=== PATIENT | male | born 1955 | race Caucasian/White ===

== ENCOUNTER 2025-03-12 09:43 | Inpatient (IN) | payer MEDICARE, OTHER, SELFPAY ==
[2025-03-06] VITALS (11 sets, daily range): BP systolic 135–158; BP diastolic 55–73
--- NOTE | 2025-03-06 09:49 | ED.GENMED ---
History of Present Illness
<Deidre Valdivia DO - Last Filed: 03/08/25 06:17>
General
Chief Complaint: Weakness
Time Seen by Provider: 03/06/25 09:45
History of Present Illness
History of Present Illness:
69-year-old male with history of COPD presenting to the emergency department for concern of failure to thrive. Patient is being watched by the [facility]. Patient's several months ago and has been on a decline. They went to
see him today, patient was found laying on the ground next to his bed. Per medics, patient has been having frequent falls, recently evaluated a week ago for a fall. Patient somewhat limited historian. Presently denies chest pain or difficulty
breathing. Denies abdominal pain. Does note some right shoulder pain and right hip pain. When medics arrived, note the patient did have air conditioning, however the air conditioning was off. Patient arrives disheveled, unkept, cachectic. No
additional history or symptoms reported at this time
Past History
<Deidre Valdivia DO - Last Filed: 03/08/25 06:17>
Past History
ED Past Medical History: CAD, COPD, HTN, Hypercholesterolemia, Other (Monoclonal gammopathy) and Other (History of myocarditis, history of herniated disc in the neck history of kidney stones, history of problems with urination due to prostatic
hypertrophy, history of alcohol abuse, history of bipolar disorder, history of depression, history of substance abuse)
ED Past Surgical History: Orthopedic (The patient had total knee replacement 6 years ago, he had a left hip replaced 6 years ago, and screws and plate in the next 5-6 years ago.) and Other (He apparently also had several cardiac stents placed.)
Patient has exhibited threatening behavior?: Yes
Date of threatening behavior? (updated with each occurrence): 05/31/20
Social History
Tobacco: Smoker
Alcohol: Chronic alcoholic
Drug: Other
Personal:
Living: with family
Employment: Disabled
Family History
Family History: Other (reviewed and noncontributory)
Phy Exam
<Deidre Valdivia DO - Last Filed: 03/08/25 06:17>
Physical Exam
Physical Exam:
General: Unkempt, very dry mucous membranes with dried blood at the mouth, bennett discoloration of skin
HEENT: protecting airway
Neck: appears supple, generalized tenderness to the paraspinal musculature. No midline tenderness
CV: Normal heart rate, regular rhythm
Resp: No accessory muscle use, no increased work of breathing, lungs clear to auscultation bilaterally
Abd: Soft and non-distended, no tenderness to palpation
Extremities: No deformities, no swelling. Limited range of motion to the right shoulder with pain on palpation. Pitting edema to the forearm without significant tenderness. Distal sensation and pulses intact. Generalized tenderness to the right
hip without deformity or swelling
Neuro: alert, no focal neurologic deficit
: deferred
Rectal: deferred
Psych: Normal affect
Skin: Intact
Course
<Deidre Valdivia DO - Last Filed: 03/08/25 06:17>
Orders/Labs/Results
Orders:
Orders
03/06/25 09:45
CT Cervical Spine W/o Iv Contr Urgent
Comment:
Reason For Exam: fall, unwitnessed
CT Head W/o Iv Contrast Urgent
Comment:
Reason For Exam: fall, unwitnessed
0.9% Sodium Chloride 1000 ml [Nss] 1,000 ml IV BOLUS
Shoulder, Right 2 Views [CR Shoulder - Right Min 2 View] Urgent
Comment:
Reason For Exam: unwitnessed fall, pain
03/06/25 09:46
CR Chest - 2 Views Urgent
Comment:
Reason For Exam: failure to thrive
03/06/25 09:51
Hip, Right 2-3 Views [CR Hip - RT w/wo Pel 2-3 Vw*] Urgent
Comment:
Reason For Exam: fall, untinessed, pain
Include a pelvis x-ray?: Yes
03/06/25 09:58
Alcohol Urgent
CPK [Creatine Phosphokinase] Urgent
Complete Blood Count/With Diff Urgent
Comprehensive Metabolic Panel Urgent
Lactic Acid Urgent
PTT Urgent
Prothrombin Time Urgent
03/06/25 11:49
Crisis Consult Urgent
Reason for Consult: inability to care for self
03/06/25 11:53
Case Management Consult ONCE
Case Management Consult: Discharge Planning
03/06/25 16:19
Fentanyl, Urine Urgent
Urinalysis Reflex To Culture Urgent
Date Specimen was Collected: 03/06/25
Time Specimen was Collected: 16:17
Urine Drug Abuse Screen Urgent
Date Specimen was Collected: 03/06/25
Time Specimen was Collected: 16:17
Urine Microscopic Reflex Cult Urgent
Urine Culture Urgent
GEORGE Source: U
Specimen Description:
Date Specimen was Collected: 03/06/25
Time Specimen was Collected: 16:17
03/06/25 17:03
Add On- LAB Urgent
Tests Added?: alcohol level
03/07/25
DH LUMASON 5mL Routine
03/07/25 02:40
Cyclobenzaprine HCl [Flexeril] 10 mg PO NOW STA
Gabapentin [Neurontin] 800 mg PO NOW STA
Quetiapine Fumarate [Seroquel] 300 mg PO NOW STA
03/07/25 02:47
Sertraline HCl [Zoloft] 100 mg PO NOW STA
03/07/25 02:57
Gabapentin [Neurontin] 400 mg .ROUTE .STK-MED ONE
Gabapentin [Neurontin] 400 mg PO NOW STA
03/07/25 11:22
Add On- LAB Urgent
Comments:: urine in lab
Tests Added?: urine drug
03/07/25 11:23
ECG [Electrocardiogram (*1)] Urgent
Reason for Study: QTc Monitoring
Other Reason for Exam: For psychiatric placement
03/07/25 11:24
EKG- Treatment ONCE
03/07/25 11:37
COVID-19 Antigen Urgent
Source: Nasal Swab
Comment: for psychiatric placement
03/07/25 11:59
Hemoglobin Urgent
Troponin I Urgent
03/07/25 13:05
Echo 2D MMode Color/Doppler Urgent
Reason for Study: abnormal ECG, elevated Troponin
Cardiology Consult: Cruz Thompson
03/07/25 14:52
CR Hand - Right Min 3 Views Urgent
Comment:
Reason For Exam: right hand pain
03/07/25 15:25
Urine Drug Abuse Screen Routine
03/07/25 16:57
Troponin I Urgent
Aspirin Chewable [Low Strength Aspirin] 324 mg PO NOW STA
03/07/25 17:00
Metoprolol Xl [Toprol Xl] 25 mg PO DAILY
03/07/25 19:08
Acetaminophen [Tylenol] 650 mg PO NOW STA
Cephalexin Monohydrate [Keflex] 500 mg PO NOW STA
03/07/25 22:00
Cyclobenzaprine HCl [Flexeril] 10 mg PO HS PRN
Gabapentin [Neurontin] 1,200 mg PO HS
Quetiapine Fumarate [Seroquel] 300 mg PO HS
Sertraline HCl [Zoloft] 100 mg PO HS
03/07/25 22:42
Cyclobenzaprine HCl [Flexeril] 10 mg .ROUTE .STK-MED ONE
Gabapentin [Neurontin] 1,200 mg .ROUTE .STK-MED ONE
Quetiapine Fumarate [Seroquel] 300 mg .ROUTE .STK-MED ONE
Sertraline HCl [Zoloft] 100 mg .ROUTE .STK-MED ONE
03/08/25 06:00
Cardiovascular Evaluation IN AM
Troponin I IN AM
03/08/25 08:00
Aspirin Chewable [Low Strength Aspirin] 81 mg PO DAILY
Cephalexin Monohydrate [Keflex] 500 mg PO BID
Abnormal Lab Results
03/06/25 03/06/25 03/07/25
09:58 16:19 11:59
RBC 2.99 L 10^6/uL
(4.70-6.10)
Hgb 10.3 L g/dL 9.6 L g/dL
(13.0-18.0) (13.0-18.0)
Hct 29.9 L %
(39.0-52.0)
MCV 100.0 H fL
(80.0-94.0)
MCH 34.4 H pg
(27.0-31.0)
RDW 16.1 H %
(11.5-14.5)
MPV 10.7 H fL
(7.4-10.4)
Abs Immat Gran (auto) 0.1 H 10^3/uL
(0-0.05)
Absolute Lymphs (auto) 0.4 L 10^3/uL
(1.2-3.4)
Immature Gran % 0.9 H %
(0-0.5)
Neutrophils % 80.2 H %
(42.2-75.2)
Lymphocytes % 7.4 L %
(20.5-51.1)
PT 14.8 H Sec
(11.4-14.6)
Chloride 108 H mmol/L
(98-107)
BUN 31 H mg/dl
(9-20)
Glucose 112 H mg/dl
(70-99)
Creatine Kinase 270 H U/L
(55-170)
Troponin I 0.057 H* ng/ml
Total Protein 5.6 L g/dl
(6.3-8.2)
Albumin 3.2 L g/dl
(3.5-5.0)
Leukocyte Esterase Rfl 1+ A
(Negative)
Urine Albumin (Reflex) 2+ A
(Neg - Trace)
Ur Oxycodone Screen Positive H
(Negative)
Urine Methadone Screen Positive H
(Negative)
Ur Tricyclics Screen Positive H
(Negative)
Urine Cocaine Screen Positive H
(Negative)
03/07/25
16:57
RBC
Hgb
Hct
MCV
MCH
RDW
MPV
Abs Immat Gran (auto)
Absolute Lymphs (auto)
Immature Gran %
Neutrophils %
Lymphocytes %
PT
Chloride
BUN
Glucose
Creatine Kinase
Troponin I 0.049 H* ng/ml
Total Protein
Albumin
Leukocyte Esterase Rfl
Urine Albumin (Reflex)
Ur Oxycodone Screen
Urine Methadone Screen
Ur Tricyclics Screen
Urine Cocaine Screen
03/07/25 11:59
03/06/25 09:58
Vital Signs
Initial and Last Documented VS:
Initial Vital Signs
Temp Pulse Resp
98.7 F 94 18
03/06/25 09:42 03/06/25 09:42 03/06/25 09:42
Last Documented Vital Signs
Temp Pulse Resp BP Pulse Ox
99.5 F 86 21 134/112 100
03/07/25 08:58 03/07/25 17:49 03/07/25 00:25 03/07/25 17:49 03/06/25 17:45
<Kvng Torres, DO - Last Filed: 03/06/25 23:46>
Orders/Labs/Results
Orders:
Orders
03/06/25 09:45
CT Cervical Spine W/o Iv Contr Urgent
Comment:
Reason For Exam: fall, unwitnessed
CT Head W/o Iv Contrast Urgent
Comment:
Reason For Exam: fall, unwitnessed
0.9% Sodium Chloride 1000 ml [Nss] 1,000 ml IV BOLUS
Shoulder, Right 2 Views [CR Shoulder - Right Min 2 View] Urgent
Comment:
Reason For Exam: unwitnessed fall, pain
03/06/25 09:46
CR Chest - 2 Views Urgent
Comment:
Reason For Exam: failure to thrive
03/06/25 09:51
Hip, Right 2-3 Views [CR Hip - RT w/wo Pel 2-3 Vw*] Urgent
Comment:
Reason For Exam: fall, untinessed, pain
Include a pelvis x-ray?: Yes
03/06/25 09:58
Alcohol Urgent
CPK [Creatine Phosphokinase] Urgent
Complete Blood Count/With Diff Urgent
Comprehensive Metabolic Panel Urgent
Lactic Acid Urgent
PTT Urgent
Prothrombin Time Urgent
03/06/25 11:49
Crisis Consult Urgent
Reason for Consult: inability to care for self
03/06/25 11:53
Case Management Consult ONCE
Case Management Consult: Discharge Planning
03/06/25 16:19
Fentanyl, Urine Urgent
Urinalysis Reflex To Culture Urgent
Date Specimen was Collected: 03/06/25
Time Specimen was Collected: 16:17
Urine Drug Abuse Screen Urgent
Date Specimen was Collected: 03/06/25
Time Specimen was Collected: 16:17
Urine Microscopic Reflex Cult Urgent
Urine Culture Urgent
GEORGE Source: U
Specimen Description:
Date Specimen was Collected: 03/06/25
Time Specimen was Collected: 16:17
03/06/25 17:03
Add On- LAB Urgent
Tests Added?: alcohol level
03/07/25
DH LUMASON 5mL Routine
03/07/25 02:40
Cyclobenzaprine HCl [Flexeril] 10 mg PO NOW STA
Gabapentin [Neurontin] 800 mg PO NOW STA
Quetiapine Fumarate [Seroquel] 300 mg PO NOW STA
03/07/25 02:47
Sertraline HCl [Zoloft] 100 mg PO NOW STA
03/07/25 02:57
Gabapentin [Neurontin] 400 mg .ROUTE .STK-MED ONE
Gabapentin [Neurontin] 400 mg PO NOW STA
03/07/25 11:22
Add On- LAB Urgent
Comments:: urine in lab
Tests Added?: urine drug
03/07/25 11:23
ECG [Electrocardiogram (*1)] Urgent
Reason for Study: QTc Monitoring
Other Reason for Exam: For psychiatric placement
03/07/25 11:24
EKG- Treatment ONCE
03/07/25 11:37
COVID-19 Antigen Urgent
Source: Nasal Swab
Comment: for psychiatric placement
03/07/25 11:59
Hemoglobin Urgent
Troponin I Urgent
03/07/25 13:05
Echo 2D MMode Color/Doppler Urgent
Reason for Study: abnormal ECG, elevated Troponin
Cardiology Consult: Cruz Thompson
03/07/25 14:52
CR Hand - Right Min 3 Views Urgent
Comment:
Reason For Exam: right hand pain
03/07/25 15:25
Urine Drug Abuse Screen Routine
03/07/25 16:57
Troponin I Urgent
Aspirin Chewable [Low Strength Aspirin] 324 mg PO NOW STA
03/07/25 17:00
Metoprolol Xl [Toprol Xl] 25 mg PO DAILY
03/07/25 19:08
Acetaminophen [Tylenol] 650 mg PO NOW STA
Cephalexin Monohydrate [Keflex] 500 mg PO NOW STA
03/07/25 22:00
Cyclobenzaprine HCl [Flexeril] 10 mg PO HS PRN
Gabapentin [Neurontin] 1,200 mg PO HS
Quetiapine Fumarate [Seroquel] 300 mg PO HS
Sertraline HCl [Zoloft] 100 mg PO HS
03/07/25 22:42
Cyclobenzaprine HCl [Flexeril] 10 mg .ROUTE .STK-MED ONE
Gabapentin [Neurontin] 1,200 mg .ROUTE .STK-MED ONE
Quetiapine Fumarate [Seroquel] 300 mg .ROUTE .STK-MED ONE
Sertraline HCl [Zoloft] 100 mg .ROUTE .STK-MED ONE
03/08/25 06:00
Cardiovascular Evaluation IN AM
Troponin I IN AM
03/08/25 08:00
Aspirin Chewable [Low Strength Aspirin] 81 mg PO DAILY
Cephalexin Monohydrate [Keflex] 500 mg PO BID
Abnormal Lab Results
03/06/25 03/06/25 03/07/25
09:58 16:19 11:59
RBC 2.99 L 10^6/uL
(4.70-6.10)
Hgb 10.3 L g/dL 9.6 L g/dL
(13.0-18.0) (13.0-18.0)
Hct 29.9 L %
(39.0-52.0)
MCV 100.0 H fL
(80.0-94.0)
MCH 34.4 H pg
(27.0-31.0)
RDW 16.1 H %
(11.5-14.5)
MPV 10.7 H fL
(7.4-10.4)
Abs Immat Gran (auto) 0.1 H 10^3/uL
(0-0.05)
Absolute Lymphs (auto) 0.4 L 10^3/uL
(1.2-3.4)
Immature Gran % 0.9 H %
(0-0.5)
Neutrophils % 80.2 H %
(42.2-75.2)
Lymphocytes % 7.4 L %
(20.5-51.1)
PT 14.8 H Sec
(11.4-14.6)
Chloride 108 H mmol/L
(98-107)
BUN 31 H mg/dl
(9-20)
Glucose 112 H mg/dl
(70-99)
Creatine Kinase 270 H U/L
(55-170)
Troponin I 0.057 H* ng/ml
Total Protein 5.6 L g/dl
(6.3-8.2)
Albumin 3.2 L g/dl
(3.5-5.0)
Leukocyte Esterase Rfl 1+ A
(Negative)
Urine Albumin (Reflex) 2+ A
(Neg - Trace)
Ur Oxycodone Screen Positive H
(Negative)
Urine Methadone Screen Positive H
(Negative)
Ur Tricyclics Screen Positive H
(Negative)
Urine Cocaine Screen Positive H
(Negative)
03/07/25
16:57
RBC
Hgb
Hct
MCV
MCH
RDW
MPV
Abs Immat Gran (auto)
Absolute Lymphs (auto)
Immature Gran %
Neutrophils %
Lymphocytes %
PT
Chloride
BUN
Glucose
Creatine Kinase
Troponin I 0.049 H* ng/ml
Total Protein
Albumin
Leukocyte Esterase Rfl
Urine Albumin (Reflex)
Ur Oxycodone Screen
Urine Methadone Screen
Ur Tricyclics Screen
Urine Cocaine Screen
03/07/25 11:59
03/06/25 09:58
Vital Signs
Initial and Last Documented VS:
Initial Vital Signs
Temp Pulse Resp
98.7 F 94 18
03/06/25 09:42 03/06/25 09:42 03/06/25 09:42
Last Documented Vital Signs
Temp Pulse Resp BP Pulse Ox
99.5 F 86 21 134/112 100
03/07/25 08:58 03/07/25 17:49 03/07/25 00:25 03/07/25 17:49 03/06/25 17:45
<Deidre Valdivia, DO - Last Filed: 03/08/25 06:17>
MDM/Problems Addressed
MDM/Problems Addressed:
69-year-old male with history of COPD presenting for failure to thrive and failure to care for self. Vital signs on arrival are normal.
On exam patient is in no acute distress, however is very unwell in appearance. He is cachectic, dry in appearance, bennett discoloration. He has dried blood on his mouth. Reported history of frequent falls by [facility] and medics. For this
reason we will obtain CT brain and C-spine with some generalized tenderness to the musculature of the cervical spine. Patient also with some generalized tenderness to the right shoulder and the right hip, will obtain x-ray imaging. Concern for
severe dehydration and malnourishment. Plan for laboratory analysis. Will also obtain EKG. Patient started on IV fluids.
12:30 -workup is grossly unremarkable. No significant sign of electrolyte abnormality or dehydration. CT imaging negative for acute process. X-ray imaging without fracture or malalignment. Per medics, there was discussion that patient may
require a 302 due to failure to care for self, per the [facility]. Will consult with crisis. Will also consult with case management regarding disposition
13:45 -backup 302 has been filed. Pending crisis consultation. Patient was allegedly found with a loaded gun next his head, concerning
<Deidre Valdivia, DO - Last Filed: 03/08/25 06:17>
*Pulse Oximetry
Patient hypoxic: no
*Critical Care Note
Total Time (30-74mins, 75-104mins- exclusive of procedures): Not Applicable
<Kvng Torres, DO - Last Filed: 03/06/25 23:46>
Update Note
Update Note:
Pt remained stable. Case managment feel pt needs more psychiatric eval. Rep from [facility] did file a 302. This was ultimately upheld. Crisis will attempt to place.
Of note pt's skin discoloration is from ingestion of silver colloid which he took because he was under the impression silver was good for his health.
ED Attending Note
<Deidre Valdivia, DO - Last Filed: 03/08/25 06:17>
-
Portions of this chart may have been created with voice recognition software.� Occasional wrong word or��sound alike� substitutions may have occurred due to the inherent limitations of voice recognition software.
Discharge Plan
Departure
Patient Disposition: Psych Facility
Date of Disposition: 03/06/25
Time of Disposition: 23:45
Patient Status:: 302
Condition: Fair
Discharge Problem:
Depression
Prescriptions:
No Action
albuterol sulfate 1 PUFF HFA aerosol inhaler
1 puff inhalation R Q4HPRN PRN (Reason: sob or wheezing) Qty: 1 0RF
amlodipine 5 MG tablet
5 mg PO DAILY
aspirin 81 mg Tablet,Delayed Release (Dr/Ec)
81 mg PO DAILY
pantoprazole [Protonix] 40 mg Tablet,Delayed Release (Dr/Ec)
40 mg PO BID
ferrous sulfate 325 mg (65 mg iron) Tablet
325 mg PO Q48H
losartan 25 mg Tablet
25 mg PO DAILY
cyclobenzaprine [Flexeril] 10 mg Tablet
10 mg PO HSPRN PRN (Reason: spasms)
quetiapine [Seroquel] 300 mg Tablet
300 mg PO HS
sertraline 100 mg Tablet
100 mg PO HS
nicotine 21 mg/24 hr Patch 24 Hour
1 patch TRANSDERMAL DAILY
duloxetine [Cymbalta] 60 mg Capsule,Delayed Release(Dr/Ec)
60 mg PO DAILY
gabapentin 400 mg Tablet
800 mg PO TID
diclofenac sodium [Voltaren] 1 % Gel
0 g TOPICAL DAILYPRN PRN (Reason: areas of pain)
famotidine 20 MG tablet
20 mg PO HS
Referrals:
UNKNOWN - PT NOT,INTERVIEWE [Unknown Provider]
Interventions
Interventions:
*Risk Screen - Suicide Last Done: 03/06/25 12:04
*General Assessment Last Done: 03/06/25 12:04
*Neglect/Abuse Screening Last Done: 03/06/25 12:04
*ED- Fall Risk Assessment Last Done: 03/06/25 23:40
*ED COVID-19 Vaccine History Last Done: 03/06/25 23:40
ED- Cardiac Assessment Last Done: 03/07/25 00:20
ED- Neurological Assessment Last Done: 03/07/25 00:20
ED- Pulmonary Assessment Last Done: 03/07/25 00:20
Discharge Date and Time
Print Language: [place]
[2025-03-06] MEDS: NSS 1000 IV (10:05)
[2025-03-06 10:09] LABS: Hematocrit 29.9 % (39.0-52.0); Hemoglobin 10.3 g/dL (13.0-18.0); Mean Corp Hgb Conc. 34.4 g/dL (33.0-37.0); Mean Corpuscular Volume 100.0 fL (80.0-94.0); Nucleated Red Blood Cells % 0 % (-); Platelet Count 167 10^3/uL (130-400); Red Cell Dist. Width 16.1 % (11.5-14.5)
[2025-03-06 10:19] LABS: INR 1.13; PT 14.8 Sec (11.4-14.6)
[2025-03-06 10:20] LABS: APTT 30.5 Sec (23.4-35.0)
[2025-03-06 10:23] LABS: ALT (SGPT) 37 U/L (0-50); AST (SGOT) 34 U/L (17-59); Albumin 3.2 g/dl (3.5-5.0); Alkaline Phosphatase 68 U/L (38-126); Blood Urea Nitrogen 31 mg/dl (9-20); Calcium 8.9 mg/dl (8.4-10.2); Carbon Dioxide 24 mmol/L (22-30); Chloride 108 mmol/L (98-107); Glucose 112 mg/dl (70-99); Potassium 3.8 mmol/L (3.5-5.1); Sodium 136 mmol/L (135-145); Total Protein 5.6 g/dl (6.3-8.2); eGFR > 60.00
--- NOTE | 2025-03-06 10:59 | PHANOTE ---
med rec note called patient [facility] to get his medication list also having it faxed over. patient ecw from 2019
--- NOTE | 2025-03-06 13:57 | CM ---
CM consult, spoke with Dr Valdivia and Belia from Crisis. Per Paradise Celaya from Crisis will see pt and there is a backup 302 completed by [facility]. CM will remain available if needed.
[2025-03-06 16:35] LABS: Urine Character Slightly Cloudy (Clear)
[2025-03-06 17:05] LABS: Urine Red Blood Cell 0-2 /HPF (0-2); Urine White Cell 0-2 /HPF (0-5)
[2025-03-07 00:25] VITALS: BP 134/61
[2025-03-07] MEDS: NEURONTIN 800 MG PO (02:50)
[2025-03-07] MEDS: SEROQUEL 300 MG PO ×2 (02:50→22:47)
[2025-03-07] MEDS: FLEXERIL 10 MG PO ×2 (02:50→22:47)
[2025-03-07] MEDS: ZOLOFT 100 MG PO ×2 (02:51→22:47)
[2025-03-07] MEDS: NEURONTIN 400 MG PO (02:58)
[2025-03-07 08:58] VITALS: BP 111/37
--- NOTE | 2025-03-07 11:45 | ED.CRISIS ---
ED Crisis Note
ED Crisis Note
Subjective:
Patient has no acute medical complaints. Denying chest pain shortness of breath or any recent anginal-like symptoms.
Objective:
Nontoxic no distress. Good distal pulses. Regular rate and rhythm. Warm and dry. Perfusing well. Speech is normal.
Assessment/Plan:
EKG was done at the request of the referring facility. Patient's EKG does show new T wave inversions anterior laterally. These may all be early LVH like changes. He is currently asymptomatic. Will do troponin for completeness. If this is
stable, this can be followed up as an outpatient with cardiology.
[2025-03-07 12:01] LABS: COVID-19 Antigen Negative (Negative)
[2025-03-07 12:07] LABS: Hemoglobin 9.6 g/dL (13.0-18.0)
[2025-03-07 12:50] LABS: Troponin I 0.057 ng/ml
--- NOTE | 2025-03-07 13:09 | ED.CRISIS ---
ED Crisis Note
ED Crisis Note
Subjective:
Follow-up for hemoglobin and troponin.
Objective:
Patient denies melanotic or bloody stool. Refuses rectal exam. Fully understanding of the risk and the reason for this further evaluation. Cardiology was contacted concerning the slight indeterminate troponin with EKG changes. Currently
asymptomatic however
Assessment/Plan:
Asked cardiology to evaluate for EKG changes and slight indeterminate troponin. Currently asymptomatic however. Patient refuses further testing currently for the anemia. He is clinically stable is not describing an acute GI bleed however
--- NOTE | 2025-03-07 15:06 | CON.MD ---
Addendum entered and electronically signed by Danyel Parish MD 03/07/25 15:55:
this consult was done today march 07 2025
Original Note:
Consultation - Medical
-
patient seen chart reviewed. spoke with er physicians. the patient is a 70 yo male. Area office on again nurse filed a 302 petition. she noted patient was not eating or drinking and had lost 10 lbs in two weeks. he was not taking meds as
prescribed; it is alleged he did not know what meds he was even taking. he has hx copd cad knee hip and shoulder replacements gerd anemia neuropathy. his suddenly in december. he has been dizzy and fallen. a loaded gun was found near him
at his home . the petition was upheld by [employer] and a bed is being sought for him. the patient denies all of these allegations. he says he is here bc he fell and injured his hand and that the allegations that he is depressed and suicidal are
'lies.' patient is not a very cooperative historian. he is unhappy to be here and made that clear. there is also note re binge etoh in recent past. noted tox + for oxy methadone tca and cocaine
past psych hx he has been prescribed antidepressants zoloft and cymbalta as well as seroquel in the past although he says he is not depressed
medical hx from [facility] mgr notes. see above. multiple ortho issues. labs show anemia 9.6 noted was taking iron but has macrocytic indices. he had taken colloidal silver 'for infection' self precribed for over ten years. his skin notably
[place] in color. says he stopped it a year or two again. ecg abnormal and he is being currently assessed by cardiology. troponin slightly elevated without c/o chest pain . weight 77 kg four cardiac stents has had some care at [place] hx bone marrow and
blood cancer according to crisis record copd hx back surgeries plates and screws in place rotator cuff surgery record says patient allergic to codeine hydrocodone and morphine. neuropathy
fh not known .
substance abuse see above patient denies abuse of substances to me but see tox above
social resides alone reportedly has a son recently
mse alert ox3 not very cooperative with history taking. very quiet and rather withdrawn speech nl rate and tone. generally goal oriented but sparse response. depressed affect bland denies si no overt psychosis insight judgment lacking
dx unspecified depression r.o substance abuse
plan wll continue the search for psych bed as we pursue medical clearance. will repeat tox screen as patient denies substance abuse. ativan prn anxiety agitation. will continue to try to get hx from patient.
--- NOTE | 2025-03-07 16:48 | CON.CAR ---
Addendum entered and electronically signed by Cortez Thompson MD 03/07/25 18:56:
I saw and examined the patient.
The Dope Mixer's note was reviewed and I agree with the note.
Comment:
GEN: No distress, awake, Ox3
HEENT: supple, anicteric, mmm
LUNGS: CTA, no wheezes/rales
CV: Reg, S1/S2, 1/6 syst LSB, no gallop
ABD: soft, BS+, NT/ND
EXT: No edema
NEURO: Gross non-focal
SKIN: Foot ulcer
PLan:
69-year-old male with past medical history of coronary artery disease, COPD, alcohol abuse, tobacco abuse, hypertension, and hyperlipidemia presents after being found in his bed after a fall. A gun was found near him and concern was for his mental
health and he is being evaluated by the crisis team. He is at this point being planned to be 302 and we are asked to medically evaluate him he denies chest pain, shortness of breath, orthopnea, PND, or edema.
His EKG does have sinus rhythm with marked T wave abnormalities in his cardiac troponin is at 0.5.
I had a lengthy discussion with him and offered him a Lexiscan nuclear stress test in the a.m. to better stratify him. He declined this at this time.
I would recommend medical treatment for his coronary artery disease for now. Add aspirin, start metoprolol 25 mg daily.
I would trend his cardiac troponin over the next several hours. If he has no further chest pains and troponins are improving, it would be reasonable to transfer him to an inpatient psych facility for further management.
Original Note:
Consultation
Consultation Request
Date/Time Consultation Requested: 03/07/2025
Date/Time Consultation Performed: 03/07/2025
Requesting Provider: Dr. Cunningham in the ER
Performing Provider: Dr. Thompson
Reason for Consultation: Abnormal ECG
Medical History
-
History of Present Illness:
Patient came to the [facility] ER yesterday for failure to thrive and cardiology is now consulted for an abnormal EKG. Patient was being watched by the area agency on aging after his a few months ago. Yesterday the area agency on aging
agent found the patient lying on the ground next to his bed, he appeared to have fallen and had blood on his mouth, the air conditioning was not turned on and there was a gun next to his head on the bed. In the ER patient was seen by the crisis
team and plans were made for transfer to an inpatient psychiatric facility, but before the facility would accept him they requested an ECG. ECG performed and reviewed by me shows NSR with marked anterolateral T wave inversions and QTc 488 ms.
Patient denies any chest pain, but says he has ARANGO that is worse over the last several months.
PMH:
CAD with stents of unknown vessels at unknown healthcare system in [place] at an unknown date
COPD
Alcohol use disorder, severe
History of MGUS
HTN
Hyperlipidemia
Past Medical History
Past Medical History: Other (In HPI)
Past Surgical History: Cardiac (PCI of unknown vessel at unknown healthcare system somewhere in [place])
Social History
Tobacco: Smoker
Alcohol: Chronic Alcoholic
Drug: None
Personal:
Living: With Family
Family History
Family History: Reviewed & Not Pertinent
Allergies / Home Medications
Allergy/AdvReac Type Severity Reaction Status Date / Time
adhesive Allergy Itching/RED Verified 05/31/20 10:12
NESS
codeine (Codeine) Allergy Itching, Verified 05/31/20 10:12
flushing,rash/ok
with
oxycodone
hydrocodone Allergy itchying, Verified 05/31/20 10:12
flushing,rash/ok
with
oxycodone
morphine Allergy Itching Verified 05/31/20 10:12
chest up
�Medication �Instructions �Recorded �Confirmed �Type
albuterol sulfate 90 mcg/actuation 1 puff inhalation R Q4HPRN PRN sob 01/25/20 03/06/25 Rx
aerosol inhaler or wheezing ##1
amlodipine 5 mg tablet 5 mg PO DAILY Blood Pressure 05/31/20 03/06/25 History
aspirin 81 mg tablet,delayed 81 mg PO DAILY Heart 03/06/25 03/06/25 History
release Disease/Condition
cyclobenzaprine 10 mg tablet 10 mg PO HSPRN PRN spasms 03/06/25 03/06/25 History
diclofenac sodium 1 % topical gel 0 g topical DAILYPRN PRN areas of 03/06/25 03/06/25 History
pain
duloxetine 60 mg capsule,delayed 60 mg PO DAILY Mental 03/06/25 03/06/25 History
release (Cymbalta) Health/Anxiety
ferrous sulfate 325 mg (65 mg 325 mg PO Q48H Supplement 03/06/25 03/06/25 History
iron) tablet
gabapentin 400 mg tablet 800 mg PO TID Pain 03/06/25 03/06/25 History
losartan 25 mg tablet 25 mg PO DAILY Blood Pressure 03/06/25 03/06/25 History
nicotine 21 mg/24 hr daily 1 patch transdermal DAILY NICOTINE 03/06/25 03/06/25 History
transdermal patch REPLACEMENT
pantoprazole 40 mg tablet,delayed 40 mg PO BID Gastrointestinal Issue 03/06/25 03/06/25 History
release (Protonix)
quetiapine 300 mg tablet (Seroquel) 300 mg PO HS Mental Health/Anxiety 03/06/25 03/06/25 History
sertraline 100 mg tablet 100 mg PO HS Mental Health/Anxiety 03/06/25 03/06/25 History
famotidine 20 mg tablet 20 mg PO HS Gastrointestinal Issue 03/07/25 03/06/25 History
Review of Systems
-
History Source: Patient
All other systems: Negative unless noted
Physical Exam
Vital Signs
Temp Pulse Resp BP Pulse Ox
99.5 F 89 21 111/37 100
03/07/25 08:58 03/07/25 08:58 03/07/25 00:25 03/07/25 08:58 03/06/25 17:45
GEN: No distress, AAOx3
HEENT: EOMI
LUNGS: RA. CTA B/L
CV: Not on tele. SR on ECG. Reg, S1/S2, 09/18 syst LSB
ABD: soft, BS+, NT/ND
EXT: Left medial heel wound with drainage, but no malodor. No edema B/L LE
NEURO: Gross non-focal
SKIN: Blue tint from previous colloidal cilver use. No rash
Lab Results
03/07/25 11:59
03/06/25 09:58
Troponin I 0.057 ng/ml H* 03/07/25 11:59
Impression / Plan
-
PCP: None
Cardiology: None locally
Impression:
Admitted for crisis and 302 petition 03/06/2025
Abnormal EKG
Elevated troponin
Left heel wound
CAD with stents of unknown vessels at unknown healthcare system in [place] at an unknown date
COPD
Alcohol use disorder, severe
History of MGUS
HTN
Hyperlipidemia
Echo 03/07/2025: EF 60 to 65%, moderate concentric LVH, normal RV size and function, no significant valve
Plan:
-Patient came to the [facility] ER yesterday for failure to thrive and cardiology is now consulted for an abnormal EKG. Patient was being watched by the area agency on aging after his a few months ago. Yesterday the area agency on aging
agent found the patient lying on the ground next to his bed, he appeared to have fallen and had blood on his mouth, the air conditioning was not turned on and there was a gun next to his head on the bed. In the ER patient was seen by the crisis
team and plans were made for transfer to an inpatient psychiatric facility, but before the facility would accept him they requested an ECG. ECG performed and reviewed by me shows NSR with marked anterolateral T wave inversions and QTc 488 ms.
Patient denies any chest pain, but says he has ARANGO that is worse over the last several months.
-ECG reviewed by me is SR with marked anterolateral T wave inversions and QTc 488 ms
-Initial troponin 0.057 and second troponin ordered by me. Additional troponin for the a.m. also ordered by me along with another ECG
-Patient denies any chest pain. Will start aspirin 324 mg x 1 now and then 81 mg daily, all ordered by me
-Patient is not interested in stress test, but was agreeable to echo as outlined above. EF is overall preserved with no gross WMA
-Will also start Toprol-XL 25 mg daily, ordered by me
-Check CVE in a.m., patient was not taking his statin prior to admission
-Patient with history of CAD, but he has no details. When I look back in the [facility] system I can see that as far back as 2010 he was seen in the ER here complaining of chest pain and reporting that he had stents at least 5 years prior to that.
The patient does not recall healthcare system his stents were performed at and so I cannot call for records.
-Hgb is 9.6, he is macrocytic. Patient refuses any additional workup of his anemia
- During my physical exam I found that the patient had a left heel wound which she says has been there for a month. There is drainage, but no malodor. This information was passed along to the ER attending who will investigate.
[2025-03-07 17:35] LABS: Troponin I 0.049 ng/ml
[2025-03-07] MEDS: LOW STRENGTH ASPIRIN 324 MG PO (17:49)
[2025-03-07] MEDS: TOPROL XL 25 MG PO (17:49)
--- NOTE | 2025-03-07 18:35 | EDRN ---
L heel wound, reports for 2 weeks, that blister 'popped ' and drained prior to this hospitalization.
[2025-03-07] MEDS: TYLENOL 650 MG PO (19:38)
[2025-03-07] MEDS: KEFLEX 500 MG PO (19:39)
--- NOTE | 2025-03-07 20:25 | ED.CRISIS ---
ED Crisis Note
ED Crisis Note
Subjective:
Cardiology evaluated patient and offered a stress test, patient declined. Evaluated patient's left foot wound that appears slightly infected and painful. Patient declined suicidal ideation.
Objective:
Erythema and tenderness left heel
Assessment/Plan:
Cellulitis left heel started on Keflex, no current indication for admission.
[2025-03-07] MEDS: NEURONTIN 1200 MG PO (22:47)
[2025-03-08 08:12] VITALS: BP 111/43
--- NOTE | 2025-03-08 08:15 | EDRN ---
Patient calm and cooperative. Denies thoughts of suicide.
[2025-03-08 09:03] LABS: Troponin I 0.052 ng/ml
--- NOTE | 2025-03-08 09:21 | ED.CRISIS ---
ED Crisis Note
ED Crisis Note
Subjective:
69-year-old male with history of COPD presenting for failure to thrive from home, brought in after a call from agency of aging for concern of failure to care for self, also with concern of mental health issues.
Objective:
Patient resting comfortably, no acute complaints. Vital signs remained stable
Assessment/Plan:
Patient initially evaluated in the hospital, stable vital signs with unremarkable initial workup with the exception of mild anemia. Patient have some cellulitis to the left foot with a wound, placed on Keflex. Backup 302 filed with initial report
that there were multiple loaded guns at patient's house. Initial plan for psych placement. While patient in the ER, had screening EKG, abnormal with diffuse T wave inversions and elevated troponins. Recommended that patient had a stress test for
cardiac nausea, however patient refused. Patient with known COPD back to compromised lung state. When patient recently ambulated to the bathroom, acutely desaturated, is not on home O2. Patient was reassessed by psychiatry, at this time does not
feel the patient can go to a psych facility given his medical issues and present wound infection and oxygen needs. For this reason we will plan for inpatient admission. Per psych, patient will be placed under 303
--- NOTE | 2025-03-08 10:35 | HPS.HSE ---
Family Physician
-
Family Physician: * NONE
Chief Complaint
-
FTT
History of Present Illness
HPI: 69-year-old male with PMH COPD; p/w failure to thrive. Patient was being watched by the agency of aging. Apparently, patient's several months ago and pt has been declining since. He was found by [employer] laying on the ground next
to his bed.
There is concern of depression.
Patient is a limited historian. Denies to symptoms.
He appeared disheveled, unkept, and cachectic on arrival on 03/06.
Medical History
Past Medical History
Past Medical History: Reports Other
Additional Past Medical History:
COPD
Past Surgical History: Reports None
Social History
Tobacco: Smoker
Living: Alone
Family History
Family History: Not pertinent
Allergies / Home Medications
Allergies reflects when Allergies were last updated in [facility].
Home Medications with original date entered in [facility]
Allergy/Medication List:
Allergies
Allergy/AdvReac Type Severity Reaction Status Date / Time
adhesive Allergy Itching/RED Verified 05/31/20 10:12
NESS
codeine (Codeine) Allergy Itching, Verified 05/31/20 10:12
flushing,rash/ok
with
oxycodone
hydrocodone Allergy itchying, Verified 05/31/20 10:12
flushing,rash/ok
with
oxycodone
morphine Allergy Itching Verified 05/31/20 10:12
chest up
Home Medications
albuterol sulfate 90 mcg/actuation aerosol inhaler 1 puff inhalation R Q4HPRN PRN sob or wheezing ##1 01/25/20
amlodipine 5 mg tablet 5 mg PO DAILY Blood Pressure 05/31/20
aspirin 81 mg tablet,delayed release 81 mg PO DAILY Heart Disease/Condition 03/06/25
cyclobenzaprine 10 mg tablet 10 mg PO HSPRN PRN spasms 03/06/25
diclofenac sodium 1 % topical gel 0 g topical DAILYPRN PRN areas of pain 03/06/25
duloxetine 60 mg capsule,delayed release (Cymbalta) 60 mg PO DAILY Mental Health/Anxiety 03/06/25
ferrous sulfate 325 mg (65 mg iron) tablet 325 mg PO Q48H Supplement 03/06/25
gabapentin 400 mg tablet 800 mg PO TID Pain 03/06/25
losartan 25 mg tablet 25 mg PO DAILY Blood Pressure 03/06/25
nicotine 21 mg/24 hr daily transdermal patch 1 patch transdermal DAILY NICOTINE REPLACEMENT 03/06/25
pantoprazole 40 mg tablet,delayed release (Protonix) 40 mg PO BID Gastrointestinal Issue 03/06/25
quetiapine 300 mg tablet (Seroquel) 300 mg PO HS Mental Health/Anxiety 03/06/25
sertraline 100 mg tablet 100 mg PO HS Mental Health/Anxiety 03/06/25
famotidine 20 mg tablet 20 mg PO HS Gastrointestinal Issue 03/07/25
Review of Systems
-
Constitutional: Reports No Symptoms
Physical Exam
Vital Signs
Vital Signs
Temp Pulse Resp BP Pulse Ox
37.4 C 79 16 111/43 98
03/08/25 08:12 03/08/25 08:12 03/08/25 08:12 03/08/25 08:12 03/08/25 08:12
Physical Exam
General: Well Developed, No Apparent Distress, Comfortable, Conversant and Appears Chronically Ill
HEENT: NormoCephalic, Moist mucous membranes and Atraumatic; No Oxygen
Respiratory: Clear and Non Labored Respirations; No Accessory Resp Muscle Use
Cardiac: S1/S2 and Regular Rhythm; No Murmur or Rub
GI: Soft, Non Tender, Non Distended and Normal Bowel Sounds; No Organomegaly
Rectal: Deferred by Provider
Musculoskeletal: No Clubbing, No Cyanosis and No Edema
Skin: Warm and Other (see wound care note)
Neuro: Awake, Alert and Other (ambulates with a walker )
Psych: Calm and Intact Judgment/Insight (somewhat)
Laboratory Results
-
03/07/25 11:59
03/06/25 09:58
Laboratory Results
PT 14.8 Sec (11.4-14.6) H 03/06/25 09:58
INR 1.13 03/06/25 09:58
APTT 30.5 Sec (23.4-35.0) 03/06/25 09:58
Lactic Acid 1.2 mmol/L (0.7-2.0) 03/06/25 09:58
Total Bilirubin 0.7 mg/dl (0.2-1.3) 03/06/25 09:58
AST 34 U/L (17-59) 03/06/25 09:58
ALT 37 U/L (0-50) 03/06/25 09:58
Alkaline Phosphatase 68 U/L (38-126) 03/06/25 09:58
Troponin I 0.052 ng/ml H* 03/08/25 08:08
Data Reviewed
-
Lab Data: Labs Reviewed by me
Impression/Plan
-
HPI: 69-year-old male with PMH COPD; p/w failure to thrive. Patient was being watched by the agency of aging. Apparently, patient's several months ago and pt has been declining since. He was found by [employer] laying on the ground next
to his bed.
There is concern of depression.
Patient is a limited historian. Denies to symptoms.
He appeared disheveled, unkept, and cachectic on arrival on 03/06.
A/P:
# FTT
# Concern of depression with recent passing of
CT head on admission showed No acute intracranial abnormality.
UDS on admission positive for oxycodone, methadone, tricyclic and cocaine
Urine culture no growth
Check TSH reflex FT4
Cont Seroquel and Zoloft
Psych on board to facilitate inpt psych disposition
# Elevated trop possibly NSTEMI vs non-ischemic myocardial injury
TWI noted on EKG
Card on board, offered Lexiscan nuclear stress test which he declined
Card recc medical treatment, cont aspirin and started metoprolol 25 mg daily.
# L foot wound
does not appear infected, DC further PO Keflex
wound care CS
# resolved acute hypoxic resp insufficiency
# H/o COPD
weaned off O2, check walking pulse Ox
cont inhaler
# R hand pain and unable to make a fist
R hand XR: No acute fracture or dislocation. Osteoarthrosis of the right hand, most severe at the first carpometacarpal joint with marked joint space narrowing, subchondral sclerosis, subchondral cysts, and large marginal osteophytes. Chronic,
healed fracture of the fifth metacarpal with bony remodeling.
Tylenol PRN for pain control
DVT ppx: Lovenox SQ
FC
[2025-03-08 10:42] LABS: HDL Cholesterol 22 mg/dl; LDL Cholesterol, Calculated 83 mg/dl; Very Low Density Lipoprotein 25 mg/dl (0-30)
[2025-03-08] MEDS: LOW STRENGTH ASPIRIN 81 MG PO (11:01)
[2025-03-08] MEDS: TOPROL XL 25 MG PO (11:02)
--- NOTE | 2025-03-08 11:36 | W.PN.UPDATE ---
Addendum entered and electronically signed by Danyel Parish MD 03/08/25 11:41:
would get pt and ot consult to assess capabilties of caring for self. will likely file a 303 to keep him and continue evaluation.
Original Note:
Update Note
Progress Note Update
patient seen chart reviewed. please see my consult which is already in the chart from yesterday. the patient denies that he is currently depressed or suicidal. according to [facility] office on again his home is a shambles . there are lots of medications
in the home and they are concerned he was mixing up meds he was supposed to be taking with those of his . a big issue was the discovery of a loaded gun in the home which he said he was NOT going to use to harm self but rathe rhe has it for
protection. he was noted to be weak o2 sats dropped with minimal ambulation. there was ? re ecg troponin etc so he was medically admitted. would ask that cm contact [facility] office on aging senior patient account representative for further info. did not make any changes
in his psych meds which i believe are managed by his primary physician.
[2025-03-08 12:54] VITALS: BMI 21.3
[2025-03-08 13:15] VITALS: BP 138/63
--- NOTE | 2025-03-08 13:16 | PTCARENOTE ---
Pt ambulated from stretcher to bed with minimal assistance of one medical personnel, VSS, pt AAOx2 (disoriented to time), pt oriented to call barkley and room, admission completed, 1:1 in room for observation, wounds noted on admission - [facility] RN
consulted. No new orders at this time.
[2025-03-08] MEDS: NICODERM TRANSDERMAL 21 MG TRANSDERM (14:10)
--- NOTE | 2025-03-08 14:13 | CM ---
Reviewed the chart notes and spoke with the patient at the bedside. The patient is admitted under observational status. The HOFFMANN letter was provided and explained. The patient had no questions with regards to the letter.
The patient resides alone in a one story home with one step to enter. The patient reports no DME or SNF, but did have VN in past, agency unknown. The patient confirmed pharmacy he would use for short term medications is [facility].
[facility] 303 hearing to be scheduled for tomorrow.
SUSHANT spoke with Stephanie ([phone]) from [facility]. Per Stephanie, the patient was brought in after a [facility] telephone claims representative found patient on the floor of his home with a loaded handgun under his body. Per Stephanie, the patient is suffering from severe self
neglect since spouse last year. Patient eats once every 5-7 days. [facility] has arranged for daily meal delivery, but the patient they believe feeds it to his dog. Dog is currently in [facility]. Patient informed of this. Per Stephanie,
when visiting the patient they would frequently do a takeout run for the patient at various food vendors. Patient has refusing his medications. Frequently falls. Consumes large amounts of alcohol. Decreased stamina. Home is in disarray. [facility]
has been visiting 1-2 times per week due to their concern for the patient. Per Stephanie, patient has a stepson and stepdaughter that want nothing to do with the patient. Patient has a [id number] Brendan ([phone]). CM continues to be available
to patient/family and is monitoring medical plan for needs at discharge.
Plan: Discharge plans will depend on the outcome of tomorrows 303 hearing.
--- NOTE | 2025-03-08 14:21 | CM ---
Addendum entered by Cris Healy 03/08/25 16:02:
303 completed and on chart. Sent to [email or web address].
Hearing scheduled for 12 noon. TT to .
Original Note:
Call placed to [facility] at [phone]
Court will call or email CM with court time.
303 to be completed by psychiatry and emailed once completed.
[2025-03-08 15:05] VITALS: BP 120/61
--- NOTE | 2025-03-08 15:19 | WOUNDNOTE ---
[facility] RN NOTE: Reviewed chart and met with patient. Patient with open blister to left heel. Suspect blister occurred due to friction from shoe, but patient unsure. Upon assessment blister is open with pink wound bed. No odor noted and small amount of
serous drainage. Wound edge slightly macerated. IRENE Stanford, performed appropriate wound care prior to assessment and dressing was maintained. Patient given air cushion for additional off-loading. Sacrum intact. Patient is ambulatory and turns easily in
bed. He reports good appetite. Confirmed orders and careplan update. Will follow as needed. Hien BONILLA given update.
[2025-03-08] MEDS: LOVENOX SC (17:08)
--- NOTE | 2025-03-08 17:18 | W.PN.CARDCBS ---
Today's Communication / Plan
-
Stable for discharge from my perspective
Recommended cardiac meds on discharge:
Aspirin 81 mg daily
Atorvastatin 40 mg daily
Amlodipine 2.5 mg daily
Impression / Plan
-
PCP: None
Cardiology: None locally
Impression:
Admitted for crisis and 302 petition 03/06/2025
Abnormal EKG
Elevated troponin
Left heel wound
CAD with stents of unknown vessels at unknown healthcare system in [place] at an unknown date
COPD
Alcohol use disorder, severe
History of MGUS
HTN
Hyperlipidemia
Echo 03/07/2025: EF 60 to 65%, moderate concentric LVH, normal RV size and function, no significant valve
Patient came to the [facility] ER yesterday for failure to thrive and cardiology is now consulted for an abnormal EKG. Patient was being watched by the [employer] agency on aging after his a few months ago. Yesterday the [employer] agency on aging
agent found the patient lying on the ground next to his bed, he appeared to have fallen and had blood on his mouth, the air conditioning was not turned on and there was a gun next to his head on the bed. In the ER patient was seen by the crisis
team and plans were made for transfer to an inpatient psychiatric facility, but before the facility would accept him they requested an ECG. ECG performed and reviewed by me shows NSR with marked anterolateral T wave inversions and QTc 488 ms.
Patient denies any chest pain, but says he has ARANGO that is worse over the last several months.
Plan:
-Patient is not reporting any cardiac symptoms today including no chest discomfort
-Troponin trend is flat 0.057�0 0.049�0.052. No need to trend further.
-Echo with normal LV function and no segmental wall motion abnormalities
-Suspect nonischemic myocardial injury troponin elevation.
-I offered to arrange for either inpatient or outpatient nuclear stress test however the patient declined
-Plan for medical management of CAD with aspirin, high intensity statin.
-Will stop metoprolol and use amlodipine as antianginal given urine was cocaine positive on admission.
Medically stable for discharge from my perspective
Patient prefers to follow-up with his [facility] physicians
Progress Note - Gi Technician
Subjective
Date of Service: March 08, 2025
No acute overnight events. Patient is resting comfortably in bed. No chest discomfort. His main complaint is right upper extremity pain and swelling.
Objective
Labs:
03/07/25 11:59
03/06/25 09:58
Labs
Hgb 9.6 g/dL (13.0-18.0) L 03/07/25 11:59
Hct 29.9 % (39.0-52.0) L 03/06/25 09:58
Plt Count 167 10^3/uL (130-400) 03/06/25 09:58
PT 14.8 Sec (11.4-14.6) H 03/06/25 09:58
INR 1.13 03/06/25 09:58
APTT 30.5 Sec (23.4-35.0) 03/06/25 09:58
Sodium 136 mmol/L (135-145) 03/06/25 09:58
Potassium 3.8 mmol/L (3.5-5.1) 03/06/25 09:58
BUN 31 mg/dl (9-20) H 03/06/25 09:58
Creatinine 1.0 mg/dL (0.7-1.3) 03/06/25 09:58
Glucose 112 mg/dl (70-99) H 03/06/25 09:58
Troponins
03/07/25 03/07/25 03/08/25
11:59 16:57 08:08
Troponin I 0.057 H* 0.049 H* 0.052 H*
Vital Signs and I&O:
Vital Signs
Temp Pulse Resp BP Pulse Ox
98.0 F 73 16 120/61 100
03/08/25 15:05 03/08/25 15:05 03/08/25 15:05 03/08/25 15:05 03/08/25 15:05
Vital Signs
Temp Pulse Resp BP Pulse Ox
98.0 F 73 16 120/61 100
03/08/25 15:05 03/08/25 15:05 03/08/25 15:05 03/08/25 15:05 03/08/25 15:05
Physical Exam
Physical Exam
Gen: NAD, AAOx3
HEENT: NC/AT, sclera anicteric
Neck: No JVD
CV: RRR, NL s1/s2, no M/R/G
Lungs: CTAB
Abd: S/ND
Ext: Right upper extremity edema with decreased mobility
Skin: Warm, dry
Neuro: Non-focal
[2025-03-08] MEDS: LIPITOR 40 MG PO (17:56)
[2025-03-08] MEDS: PROTONIX 40 MG PO (19:40)
[2025-03-08] MEDS: ZOLOFT 100 MG PO (19:40)
[2025-03-08] MEDS: FLEXERIL 10 MG PO (19:43)
[2025-03-08] MEDS: SEROQUEL 300 MG PO (19:43)
[2025-03-08] MEDS: NEURONTIN 1200 MG PO (19:44)
[2025-03-08] MEDS: PEPCID 20 MG PO (19:45)
[2025-03-08 23:32] VITALS: BP 101/44
[2025-03-09] MEDS: TYLENOL 650 MG PO (06:12)
--- NOTE | 2025-03-09 06:16 | PTCARENOTE ---
Throughout the night pt has asked multiple times about when he is getting discharged and needs to get [facility] the [facility] before 3 PM? , he is also concerned about his R arm that is painful, swollen and difficult to move (pt states it has been
this way for multiple weeks). R Arm does not feel warm, is not red but is swollen. Pt states pain is a 7/10 throughout the entire arm (shoulder to fingers). Pt is asking for oxy but only has Tylenol ordered, agreed to take Tylenol. agusto PALMER made
aware of pt concerns.
[2025-03-09 07:00] VITALS: BP 148/61
[2025-03-09 07:48] LABS: Hematocrit 24.8 % (39.0-52.0); Hemoglobin 8.5 g/dL (13.0-18.0); Mean Corp Hgb Conc. 34.3 g/dL (33.0-37.0); Mean Corpuscular Volume 100.4 fL (80.0-94.0); Platelet Count 145 10^3/uL (130-400); Red Cell Dist. Width 15.7 % (11.5-14.5)
[2025-03-09 08:02] LABS: Blood Urea Nitrogen 20 mg/dl (9-20); Calcium 8.2 mg/dl (8.4-10.2); Carbon Dioxide 22 mmol/L (22-30); Chloride 111 mmol/L (98-107); Estimated Creatinine Clearance 99 ml/min; Glucose 96 mg/dl (70-99); Magnesium 1.7 mg/dl (1.6-2.3); Potassium 4.1 mmol/L (3.5-5.1); Sodium 136 mmol/L (135-145); eGFR > 60.00
[2025-03-09] MEDS: NICODERM TRANSDERMAL 21 MG TRANSDERM (09:19)
[2025-03-09] MEDS: ASPIR LOW (ENTERIC COATED) 81 MG PO (09:20)
[2025-03-09] MEDS: PROTONIX 40 MG PO ×2 (09:20→19:52)
[2025-03-09] MEDS: NORVASC 2.5 MG PO (09:23)
--- NOTE | 2025-03-09 09:40 | CM ---
Addendum entered by Citlalli Benavidez RN 03/09/25 15:38:
303 upheld. CM spoke with Keisha from [facility] and Rodney from [facility]. Both requested clinicals faxed to [facility] (fax [phone]) and [facility] (fax [phone]).
Original Note:
Reviewed the chart notes and spoke with the patient at the bedside. Updated on 303 hearing will take place today at noon. [facility] IRENE Lopez updated as well ([phone]). CM continues to be available to patient/family and is monitoring medical plan
for needs at discharge.
Plan: Discharge plans will depend on outcome from hearing.
[2025-03-09 10:09] VITALS: BMI 21.3
[2025-03-09] MEDS: DUPHALAC/CHRONULAC 20 GRAMS PO (11:20)
[2025-03-09 12:14] VITALS: BP 119/57; PULSE 86; O2SAT 100
[2025-03-09 12:30] VITALS: BP 119/57; PULSE 86; O2SAT 100
--- NOTE | 2025-03-09 12:42 | W.PN.UPDATE ---
Update Note
Progress Note Update
patient seen chart reviewed. there was a mental health hearing this am. patient does continue to deny that he is depressed w suicidality but the visiting nurse presented a convincing px of inability to care for self over the month tht she visited
with him and he was committed for up to 10 days of in pt rx. the fact that he had a loaded gun in the home added to concerns. psychiatric social worker will look into a hospital bed which may not be easy to come by given his many medical issues. have spoken
with PT about patients many musculoskeletal issues. asked dr smith to get r elbow xray as this is swollen and we did not xray it. patient says 'that's why i am here....' they also note shoulder immobility and sob when ambulating. anemia could be
related to sob. 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 now that they have resumed they may be improving his mood as he is at this point saying 'not depressed' wll follow
--- NOTE | 2025-03-09 12:49 | W.PN.HOSP.TC ---
Today's Communication/Plan
-
see A/P
Assessment / Plan
Assessment / Plan
HPI: 69-year-old male with PMH COPD; p/w failure to thrive. Patient was being watched by the agency of aging. Apparently, patient's several months ago and pt has been declining since. He was found by [employer] laying on the ground next
to his bed.
There is concern of depression.
Patient is a limited historian. Denies to symptoms.
He appeared disheveled, unkept, and cachectic on arrival on 03/06.
A/P:
# FTT
# Concern of depression with recent passing of
CT head on admission showed No acute intracranial abnormality.
UDS on admission positive for oxycodone, methadone, tricyclic and cocaine
Urine culture no growth
TSH WNL at 1.70
Cont Seroquel and Zoloft
Psych on board to facilitate inpt psych disposition
# Elevated trop possibly NSTEMI vs non-ischemic myocardial injury
TWI noted on EKG
Card on board, offered Lexiscan nuclear stress test which he declined
Card recc medical treatment with Aspirin 81 mg daily, Atorvastatin 40 mg daily, Amlodipine 2.5 mg daily
Off metoprolol 25 mg daily.
# L foot wound
does not appear infected, DC further PO Keflex
wound care CS
# R arm swelling
# R shoulder pain
Check R elbow and R Shoulder XR
Check RUE US to eval for DVT
Cont PT OT eval
# resolved acute hypoxic resp insufficiency
# H/o COPD
off O2, walking pulse Ox- no need for home O2
cont inhaler
# R hand pain and unable to make a fist
R hand XR: No acute fracture or dislocation. Osteoarthrosis of the right hand, most severe at the first carpometacarpal joint with marked joint space narrowing, subchondral sclerosis, subchondral cysts, and large marginal osteophytes. Chronic,
healed fracture of the fifth metacarpal with bony remodeling.
Tylenol PRN for pain control
DVT ppx: Lovenox SQ
FC
DW Psych
Anticipated Discharge: 24 - 48 hours
Subjective/Interval History
-
Date of Service: March 09, 2025
Objective Data
-
Labs:
Laboratory Results
03/09/25
07:09
WBC 3.8 L
Hgb 8.5 L
Hct 24.8 L
Plt Count 145
Sodium 136
Potassium 4.1
Chloride 111 H
Carbon Dioxide 22
BUN 20
Creatinine 0.7
Glucose 96
Calcium 8.2 L
Vital Signs:
Vital Signs
Temp Pulse Resp BP Pulse Ox
36.6 C 81 20 148/61 100
03/09/25 07:00 03/09/25 09:23 03/09/25 07:00 03/09/25 09:23 03/09/25 07:00
I&O
03/08/25 03/09/25 03/10/25
06:59 06:59 06:59
Intake Total 1650 / 1650
Balance 1650 / 1650
Review of Systems
-
History Source: Patient
Musculoskeletal: Reports Joint Swelling (R elbow and R arm ) and Other (Mild R shoulder pain )
Physical Exam
-
General: Well Developed, No Apparent Distress, Comfortable and Conversant; Negative Respiratory Distress
HEENT: Normocephalic, Atraumatic, Nose Appears Normal and Ears Appear Normal; Negative Oxygen
Respiratory: Clear to Auscultation and Non Labored Respirations; Negative Accessory Resp Muscle Use
Cardiac: Regular Rhythm and S1/S2
GI: Soft, Nontender, Nondistended and Normal Bowel Sounds
Skin: Warm and Dry
Neuro: Awake and Alert
Psych: Calm
Data Reviewed
-
Labs: Labs Reviewed by me
[2025-03-09 15:09] VITALS: BP 123/49
[2025-03-09] MEDS: LOVENOX SC (17:21)
[2025-03-09] MEDS: LIPITOR PO (17:21)
[2025-03-09] MEDS: NEURONTIN 1200 MG PO (19:52)
[2025-03-09] MEDS: PEPCID PO (19:53)
[2025-03-09] MEDS: SEROQUEL 300 MG PO (19:53)
[2025-03-09] MEDS: ZOLOFT PO (19:54)
[2025-03-09] MEDS: FLEXERIL 10 MG PO (20:01)
[2025-03-09 22:34] VITALS: BP 109/56
[2025-03-10 07:25] VITALS: BP 105/46
[2025-03-10 07:46] LABS: Hematocrit 24.4 % (39.0-52.0); Hemoglobin 8.3 g/dL (13.0-18.0); Mean Corp Hgb Conc. 34.0 g/dL (33.0-37.0); Mean Corpuscular Volume 100.4 fL (80.0-94.0); Platelet Count 155 10^3/uL (130-400); Red Cell Dist. Width 15.7 % (11.5-14.5)
[2025-03-10 08:05] LABS: Blood Urea Nitrogen 15 mg/dl (9-20); Calcium 8.1 mg/dl (8.4-10.2); Carbon Dioxide 22 mmol/L (22-30); Chloride 114 mmol/L (98-107); Estimated Creatinine Clearance 116 ml/min; Glucose 100 mg/dl (70-99); Potassium 4.0 mmol/L (3.5-5.1); Sodium 139 mmol/L (135-145); eGFR > 60.00
[2025-03-10] MEDS: NICODERM TRANSDERMAL 21 MG TRANSDERM (08:51)
[2025-03-10] MEDS: PROTONIX 40 MG PO ×2 (08:51→20:05)
[2025-03-10] MEDS: ASPIR LOW (ENTERIC COATED) 81 MG PO (08:51)
[2025-03-10] MEDS: NORVASC 2.5 MG PO (08:53)
--- NOTE | 2025-03-10 12:51 | W.PN.HOSP.TC ---
Addendum entered and electronically signed by Mynor Dyson MD 03/10/25 13:02:
8. Worsening anemia, H/H today 8.3/24.4, vitals stable.
Follow H/H
encourage PO intake
Full anemia workup
Original Note:
Today's Communication/Plan
-
needs inpatient psych stay as next step.
Assessment / Plan
Assessment / Plan
HPI/hospital course:
69-year-old male with PMH COPD; p/w failure to thrive. Patient was being watched by the agency of aging. Apparently, patient's several months ago and pt has been declining since. He was found by [employer] laying on the ground next to his
bed. There is concern of depression. Patient is a limited historian. Denies to symptoms. He appeared disheveled, unkept, and cachectic on arrival on 03/06.
A/P:
1. FTT, with Concern of depression with recent passing of .
CT head on admission showed No acute intracranial abnormality.
UDS on admission positive for oxycodone, methadone, tricyclic and cocaine
Urine culture no growth
TSH WNL at 1.70
Continue Seroquel and Zoloft
Hospital Aides And Assistants Teacher recommends inpt psych disposition as next step
Psych following
2. Elevated trop possibly NSTEMI vs non-ischemic myocardial injury
TWI noted on EKG
Card on board, offered Lexiscan nuclear stress test which he declined
Card [facility] medical treatment with Aspirin 81 mg daily, Atorvastatin 40 mg daily, Amlodipine 2.5 mg daily
Off metoprolol 25 mg daily.
3. L foot wound - does not appear infected
DC further PO Keflex
wound care CS
4. R arm swelling with R shoulder pain
Checked R elbow and R Shoulder XR
No fracture, No DVT, Does have soft tissue swelling
Likely related to his fall off the bed
PT as needed
Cont PT OT eval
5. resolved acute hypoxic resp insufficiency with H/o COPD, and positive UDS for drugs
off O2, walking pulse Ox- no need for home O2
cont inhaler
Stop using drugs that may exacerbate lung function
6. R hand pain and unable to make a fist
R hand XR:
No acute fracture or dislocation.
Osteoarthrosis of the right hand, most severe at the first carpometacarpal joint with marked joint space narrowing, subchondral sclerosis, subchondral cysts, and large marginal osteophytes.
Chronic, healed fracture of the fifth metacarpal with bony remodeling.
Tylenol PRN for pain control
7. Dispo: inpatient psych as next step given results of hearing.
Case work please help with placement
DVT ppx: Lovenox SQ
DW Psych
Anticipated Discharge: 24 - 48 hours
Subjective/Interval History
-
Date of Service: March 10, 2025
Angry that he is still in the hospital. Able to follow the conversation.
Objective Data
-
Labs:
Laboratory Results
03/10/25
07:14
WBC 4.5 L
Hgb 8.3 L
Hct 24.4 L
Plt Count 155
Sodium 139
Potassium 4.0
Chloride 114 H
Carbon Dioxide 22
BUN 15
Creatinine 0.6 L
Glucose 100 H
Calcium 8.1 L
Vital Signs:
Vital Signs
Temp Pulse Resp BP Pulse Ox
99.7 F 91 16 105/46 98
03/10/25 07:25 03/10/25 07:25 03/10/25 07:25 03/10/25 07:25 03/10/25 07:25
I&O
03/09/25 03/10/25 03/11/25
06:59 06:59 06:59
Intake Total 1650 / 1650 2820 / 2820
Balance 1650 / 1649
Review of Systems
-
History Source: Patient
All other systems: Reviewed and negative
Physical Exam
-
General: Well Developed, Well Nourished and No Apparent Distress
HEENT: Normocephalic, Nose Appears Normal and Ears Appear Normal
Respiratory: Clear to Auscultation
Cardiac: Regular Rhythm and S1/S2
GI: Soft, Nontender and Nondistended
Musculoskeletal: No Clubbing, No Cyanosis and No Edema
Skin: Warm and Dry
Neuro: Awake and Alert
Psych: Calm
Data Reviewed
-
Labs: Labs Reviewed by me
--- NOTE | 2025-03-10 13:20 | W.PN.UPDATE ---
Update Note
Progress Note Update
Patient seen by me on 03/10/2025 from 12:50pm-1:20pm
Chart reviewed. Case discussed with primary team. Patient is unhappy with [address] commitment up to 10 days inpatient psych treatment decided by the infantry senior sergeant yesterday. He denies feeling depressed or suicidal. He admits to having a loaded gun for self
defense but denies any plan or intent to utilize it to take his own life. He admits that losing his of 17 years has been difficult. He lives alone with his dog and does not have support of friends or family. He states he does not know why he is
prescribed zoloft and seroquel. He denies substance abuse and is angry to hear that his initial UDS was positive for cocaine, tricyclics, mentadone and oxy (which he is prescribed).
MSE- good eye contact. irritable mood and affect. logical and goal directed. denies SI/HI/AVH. no delusions. fully oriented. Limited I/J
A/P- 69 yo male with unspecified depression and grief committed up to 10 days on 03/[address] for safety, stabilization and medication management. Continue current medications. Continue 1:1 for safety. Case management
pursuing placement. Psychiatry will continue to follow.
[2025-03-10 15:30] VITALS: BP 142/60
[2025-03-10] MEDS: LOVENOX SC (18:00)
[2025-03-10] MEDS: LIPITOR PO (18:03)
[2025-03-10] MEDS: TYLENOL 650 MG PO (18:03)
[2025-03-10] MEDS: SEROQUEL 300 MG PO (20:06)
[2025-03-10] MEDS: NEURONTIN 1200 MG PO (20:07)
[2025-03-10] MEDS: FLEXERIL 10 MG PO (20:07)
[2025-03-10] MEDS: PEPCID PO (20:10)
[2025-03-10] MEDS: ZOLOFT PO (20:11)
[2025-03-10 22:54] VITALS: BP 118/60
[2025-03-11 06:35] LABS: Hematocrit 27.0 % (39.0-52.0); Hemoglobin 9.1 g/dL (13.0-18.0); Mean Corp Hgb Conc. 33.7 g/dL (33.0-37.0); Mean Corpuscular Volume 102.7 fL (80.0-94.0); Platelet Count 169 10^3/uL (130-400); Red Cell Dist. Width 15.9 % (11.5-14.5); Reticulocyte Count 2.0 % (0.4-2.8)
[2025-03-11 06:43] LABS: Iron 33 ug/dl (49-181)
[2025-03-11 06:53] LABS: Total Iron Binding Capacity 225 ug/dl (261-462)
[2025-03-11 07:09] VITALS: BP 146/78
[2025-03-11 07:16] LABS: Ferritin 363.0 ng/ml (17.9-464.0)
[2025-03-11 07:48] LABS: Folate 4.2 ng/ml (2.76-20); Vitamin B12 591 pg/ml (239-931)
[2025-03-11] MEDS: ASPIR LOW (ENTERIC COATED) 81 MG PO (09:33)
[2025-03-11] MEDS: NICODERM TRANSDERMAL TRANSDERM (09:33)
[2025-03-11] MEDS: PROTONIX 40 MG PO ×2 (09:33→19:37)
[2025-03-11] MEDS: NORVASC 2.5 MG PO (09:33)
--- NOTE | 2025-03-11 12:13 | W.PN.UPDATE ---
Update Note
Progress Note Update
Patient seen by me on 03/11/2025 from 11:30am-11:50am
Psychiatry follow up for 303 commitment/ treatment of depression. Patient reports feeling tired today and unsure if he slept. He has eater breakfast and dinner. He denies feeling depressed or having suicidal ideations. He is more accepting of his
court commitment for inpatient psychiatric treatment.
MSE- good eye contact. good mood and congruent affect. logical and goal directed. denies SI/HI/AVH. no delusions. fully oriented. Limited I/J
A/P- 69 yo male with unspecified depression and grief committed up to 10 days on 03/[address] for safety, stabilization and medication management. Continue current medications. Continue 1:1 for safety. Case management
pursuing placement. Psychiatry will continue to follow.
--- NOTE | 2025-03-11 13:37 | W.PN.HOSP.TC ---
Today's Communication/Plan
-
Awaiting inpatient psych bed
Medically ready for discharge otherwise
Assessment / Plan
Assessment / Plan
HPI/hospital course:
69-year-old male with PMH COPD; p/w failure to thrive. Patient was being watched by the agency of aging. Apparently, patient's several months ago and pt has been declining since. He was found by [facility] laying on the ground next to his
bed. There is concern of depression. Patient is a limited historian. Denies to symptoms. He appeared disheveled, unkept, and cachectic on arrival on 03/06.
A/P:
1. FTT, with Concern of depression with recent passing of .
CT head on admission showed No acute intracranial abnormality.
UDS on admission positive for oxycodone, methadone, tricyclic and cocaine
Urine culture no growth
TSH WNL at 1.70
Continue Seroquel and Zoloft
Student Counselor recommends inpt psych disposition as next step
Psych following
Ok to transfer when inpatient psych bed is available
2. Elevated trop possibly NSTEMI vs non-ischemic myocardial injury
TWI noted on EKG
Card on board, offered Lexiscan nuclear stress test which he declined
Card recc medical treatment with Aspirin 81 mg daily, Atorvastatin 40 mg daily, Amlodipine 2.5 mg daily
Off metoprolol 25 mg daily.
3. L foot wound - does not appear infected
DC further PO Keflex
wound care CS
4. R arm swelling with R shoulder pain
Checked R elbow and R Shoulder XR
No fracture, No DVT, Does have soft tissue swelling
Likely related to his fall off the bed
PT as needed
Cont PT OT eval
5. resolved acute hypoxic resp insufficiency with H/o COPD, and positive UDS for drugs
off O2, walking pulse Ox- no need for home O2
cont inhaler
Stop using drugs that may exacerbate lung function
6. R hand pain and unable to make a fist
R hand XR:
No acute fracture or dislocation.
Osteoarthrosis of the right hand, most severe at the first carpometacarpal joint with marked joint space narrowing, subchondral sclerosis, subchondral cysts, and large marginal osteophytes.
Chronic, healed fracture of the fifth metacarpal with bony remodeling.
Tylenol PRN for pain control
7. Dispo: inpatient psych bed needed as next step given results of hearing.
Case work please help with placement
8. anemia - appears to be mixed, with ferropenic component, with high RDW.
Low iron
Low %saturation
High MCV
High RDW
normal folate
normal b12
Give iron now to help with deficiency
Oupatient GI workup to r/o cancer vs nutritional deficiency
DVT ppx: Lovenox SQ
DW Psych
Anticipated Discharge: 24 - 48 hours
Subjective/Interval History
-
Date of Service: March 11, 2025
Sleeping comfortably. No new problems today. Pain better controlled with tylenol.
Objective Data
-
Labs:
Laboratory Results
03/11/25
05:36
WBC 10.6
Hgb 9.1 L
Hct 27.0 L
Plt Count 169
Vital Signs:
Vital Signs
Temp Pulse Resp BP Pulse Ox
98.0 F 117 20 146/78 99
03/11/25 07:09 03/11/25 07:09 03/11/25 07:09 03/11/25 07:09 03/11/25 07:09
I&O
03/10/25 03/11/25 03/12/25
06:59 06:59 06:59
Intake Total 2820 / 2820 1200 / 1200
Balance 2820 / 2820 1200 / 1200
Review of Systems
-
Unable to obtain full review of systems at this time due to: Other (patient sleeping)
Physical Exam
-
General: Well Developed, Well Nourished, No Apparent Distress and Comfortable
HEENT: Normocephalic, Nose Appears Normal and Ears Appear Normal
Respiratory: Non Labored Respirations
Skin: Dry; Negative Rash
Data Reviewed
-
Labs: Labs Reviewed by me
--- NOTE | 2025-03-11 15:02 | CM ---
Discussion with Dr Dyson- pt medically cleared for dc to inpatient psych facility
CM to facilitate 303 bed search and placement
[2025-03-11 15:29] VITALS: BP 126/67
[2025-03-11] MEDS: LIPITOR PO (17:12)
[2025-03-11] MEDS: LOVENOX SC (17:12)
[2025-03-11] MEDS: SEROQUEL 300 MG PO (19:37)
[2025-03-11] MEDS: NEURONTIN 1200 MG PO (19:38)
[2025-03-11] MEDS: ZOLOFT 100 MG PO (19:38)
[2025-03-11] MEDS: PEPCID 20 MG PO (19:38)
[2025-03-11] MEDS: TYLENOL 650 MG PO (19:42)
[2025-03-11] MEDS: FLEXERIL 10 MG PO (19:42)
[2025-03-11 23:00] VITALS: BP 120/63
[2025-03-12 06:28] LABS: Hematocrit 23.8 % (39.0-52.0); Hemoglobin 8.0 g/dL (13.0-18.0); Mean Corp Hgb Conc. 33.6 g/dL (33.0-37.0); Mean Corpuscular Volume 102.6 fL (80.0-94.0); Platelet Count 161 10^3/uL (130-400); Red Cell Dist. Width 15.9 % (11.5-14.5)
[2025-03-12 06:56] LABS: Blood Urea Nitrogen 17 mg/dl (9-20); Calcium 8.3 mg/dl (8.4-10.2); Carbon Dioxide 22 mmol/L (22-30); Chloride 113 mmol/L (98-107); Estimated Creatinine Clearance 99 ml/min; Glucose 90 mg/dl (70-99); Potassium 3.9 mmol/L (3.5-5.1); Sodium 138 mmol/L (135-145); eGFR > 60.00
[2025-03-12 07:30] VITALS: BP 111/53
[2025-03-12] MEDS: NICODERM TRANSDERMAL TRANSDERM (08:11)
[2025-03-12] MEDS: NORVASC 2.5 MG PO (08:12)
[2025-03-12] MEDS: PROTONIX 40 MG PO ×2 (08:12→21:03)
[2025-03-12] MEDS: TYLENOL 650 MG PO ×2 (08:12→15:44)
[2025-03-12] MEDS: ASPIR LOW (ENTERIC COATED) 81 MG PO (08:12)
--- NOTE | 2025-03-12 11:25 | CM ---
Reviewed the chart notes and spoke with the patient at the bedside. LOC. IMM reviewed. Left voice message with [facility] for call back regarding patient. [facility] denied. CM continues to be available to patient/family and is
monitoring medical plan for needs at discharge.
Plan: Discharge to psychiatric hospital once bed secured.
--- NOTE | 2025-03-12 12:23 | PTCARENOTE ---
Patient reports new R hand pain, which he rates 9/. +Radial pulses, slow cap refill noted, but equal on L hand compared to R hand. Dr. Contreras made aware. Orders noted for xray.
--- NOTE | 2025-03-12 13:43 | W.PN.HOSP.TC ---
Today's Communication/Plan
-
iron supp
XRs
placement
Assessment / Plan
Assessment / Plan
HPI/hospital course:
69-year-old male with PMH COPD; p/w failure to thrive. Patient was being watched by the agency of aging. Apparently, patient's several months ago and pt has been declining since. He was found by [facility] laying on the ground next to his
bed. There is concern of depression. Patient is a limited historian. Denies to symptoms. He appeared disheveled, unkept, and cachectic on arrival on 03/06.
A/P:
1. FTT, with Concern of depression with recent passing of .
CT head on admission showed No acute intracranial abnormality.
UDS on admission positive for oxycodone, methadone, tricyclic and cocaine
Urine culture no growth
TSH WNL at 1.70
Continue Seroquel and Zoloft
Edi Analyst recommends inpt psych disposition as next step
Psych following
Ok to transfer when inpatient psych bed is available
2. Elevated trop possibly NSTEMI vs non-ischemic myocardial injury
TWI noted on EKG
Card on board, offered Lexiscan nuclear stress test which he declined
Card recc medical treatment with Aspirin 81 mg daily, Atorvastatin 40 mg daily, Amlodipine 2.5 mg daily
Off metoprolol 25 mg daily.
3. L foot wound - does not appear infected
DC further PO Keflex
wound care CS
4. R arm swelling with R shoulder pain
Checked R elbow and R Shoulder XR
No fracture, No DVT, Does have soft tissue swelling
Likely related to his fall off the bed
PT as needed
Cont PT OT eval
5. resolved acute hypoxic resp insufficiency with H/o COPD, and positive UDS for drugs
off O2, walking pulse Ox- no need for home O2
cont inhaler
6. R hand pain and unable to make a fist
R hand XR:
No acute fracture or dislocation.
Osteoarthrosis of the right hand, most severe at the first carpometacarpal joint with marked joint space narrowing, subchondral sclerosis, subchondral cysts, and large marginal osteophytes.
Chronic, healed fracture of the fifth metacarpal with bony remodeling.
Tylenol PRN for pain control
Repeat XRs due to severity of pain
7. Dispo: inpatient psych bed needed as next step given results of hearing.
Case management - placement
8. Iron defeciency anemia
PO Iron
Outpt work up
DVT ppx: Lovenox SQ
DW Psych
Anticipated Discharge: Within 24 hours
Subjective/Interval History
-
Date of Service: March 12, 2025
X-ray for pain
Objective Data
-
Labs:
Laboratory Results
03/12/25
05:41
WBC 6.0
Hgb 8.0 L
Hct 23.8 L
Plt Count 161
Sodium 138
Potassium 3.9
Chloride 113 H
Carbon Dioxide 22
BUN 17
Creatinine 0.7
Glucose 90
Calcium 8.3 L
Vital Signs:
Vital Signs
Temp Pulse Resp BP Pulse Ox
98.2 F 93 16 111/53 98
03/12/25 07:30 03/12/25 07:30 03/12/25 07:30 03/12/25 07:30 03/12/25 07:30
I&O
03/11/25 03/12/25 03/13/25
06:59 06:59 06:59
Intake Total 1200 / 1200 1920 / 1920 720 / 720
Balance 1200 / 1200 192 / 1920 720 / 720
Review of Systems
-
History Source: Patient
All other systems: Not reviewed unless documented
Physical Exam
-
General: Well Developed, Well Nourished, No Apparent Distress and Comfortable
HEENT: Normocephalic, Nose Appears Normal and Ears Appear Normal
Respiratory: Non Labored Respirations
Skin: Dry; Negative Rash
Data Reviewed
-
Diagnostic Radiology: Report Reviewed by me
Labs: Labs Reviewed by me
--- NOTE | 2025-03-12 14:47 | W.PN.UPDATE ---
Update Note
Progress Note Update
Pt see, chart reviewed. Pt on 303 for up to 10 days inpatient psych tx, effective 03/09, for inability to care for self. Pt resting bed, alert with sensorium intact, preoccupied with injury to his Rt arm/hand, states he is unable to move his Rt
hand. Pt states he wants to return home to take care of his dog. Insight appears limited. Pt denies depression, denies SI. He has limited awareness of being on Zoloft and Seroquel, shows no apparent side effects. Pt states he receives medical
care at [facility] [place].
Imp: Unspecified depressive d/o; on 303 for up to 10 days inpatient from 03/09
Rec: Continue Zoloft, Seroquel. Inpatient psych placement when medically cleared
Will follow
[2025-03-12 15:20] VITALS: BP 96/50
[2025-03-12] MEDS: FEOSOL 325 MG PO (15:44)
[2025-03-12] MEDS: LOVENOX SC (15:48)
[2025-03-12] MEDS: LIPITOR PO (15:48)
[2025-03-12] MEDS: SEROQUEL 300 MG PO (17:55)
[2025-03-12] MEDS: NEURONTIN 1200 MG PO (17:55)
[2025-03-12] MEDS: ZOLOFT 100 MG PO (17:55)
[2025-03-12] MEDS: FLEXERIL 10 MG PO (17:59)
[2025-03-12] MEDS: PEPCID 20 MG PO (21:03)
[2025-03-12 23:08] VITALS: BP 153/79
[2025-03-13 07:01] VITALS: BP 126/62
[2025-03-13] MEDS: PROTONIX 40 MG PO ×2 (08:46→20:21)
[2025-03-13] MEDS: FEOSOL 325 MG PO (08:46)
[2025-03-13] MEDS: NORVASC 2.5 MG PO (08:46)
[2025-03-13] MEDS: ASPIR LOW (ENTERIC COATED) 81 MG PO (08:46)
[2025-03-13] MEDS: NICODERM TRANSDERMAL TRANSDERM (08:49)
[2025-03-13] MEDS: TYLENOL 650 MG PO (09:39)
--- NOTE | 2025-03-13 11:01 | W.PN.UPDATE ---
Update Note
Progress Note Update
Chart reviewed, Patient Seen. Patient is awake and alert, pleasant. Reports stable mood, denies feelings of depression or hopelessness. Reports he is
--- NOTE | 2025-03-13 11:12 | CM ---
Addendum entered by Citlalli Benavidez RN 03/13/25 15:16:
Referral sent to [facility]. Message received that they only take voluntary patients.
Addendum entered by Citlalli Benavidez RN 03/13/25 14:19:
[facility] declined. Per facility, it is due to the patient being medically complex.
Original Note:
Reviewed and spoke with the patient at the bedside. Clinicals faxed to [facility] ([phone]). CM continues to be available to patient/family and is monitoring medical plan for needs at discharge.
Plan: Discharge to inpatient psychiatry facility when medically stable and bed found.
--- NOTE | 2025-03-13 11:13 | W.PN.UPDATE ---
Update Note
Progress Note Update
Chart reviewed, Patient Seen. Patient is awake and alert, pleasant, conversant. Reports stable mood, denies feelings of depression or hopelessness. Denies any SI. Reports he is looking forward to going home and being with his dog. [facility]. Pt denies any anxious symptoms. Reports sleeping 8 hours. reports good appetite. Denies any side effects from medication. Patient shows poor insight, does not understand why he is here other than falling at home. Denies
allegations of suicidal behavior. Talked to RN taking care of patient, she reports he has been consistently pleasant and cooperative, talking with one-to-one. Speech is normal. Thought process is coherent and linear. Affect and mood congruent.
Impression/Recommendations: Unspecified depressive disorder; on 303 for up to 10 days inpatient from 03/09 - Continue Zoloft, Seroquel. Inpatient psych placement when medically cleared. Will follow
--- NOTE | 2025-03-13 13:36 | W.PN.HOSP.TC ---
Today's Communication/Plan
-
pending dc - cm aware
Assessment / Plan
Assessment / Plan
HPI/hospital course:
69-year-old male with PMH COPD; p/w failure to thrive. Patient was being watched by the agency of aging. Apparently, patient's several months ago and pt has been declining since. He was found by [employer] laying on the ground next to his
bed. There is concern of depression. Patient is a limited historian. Denies to symptoms. He appeared disheveled, unkept, and cachectic on arrival on 03/06.
A/P:
1. FTT, with Concern of depression with recent passing of .
CT head on admission showed No acute intracranial abnormality.
UDS on admission positive for oxycodone, methadone, tricyclic and cocaine
Urine culture no growth
TSH WNL at 1.70
Continue Seroquel and Zoloft
Vocational Rehabilitation Counselor recommends inpt psych disposition as next step
Psych following
Ok to transfer when inpatient psych bed is available
2. Elevated trop possibly NSTEMI vs non-ischemic myocardial injury
TWI noted on EKG
Card on board, offered Lexiscan nuclear stress test which he declined
Card rec medical treatment with Aspirin 81 mg daily, Atorvastatin 40 mg daily, Amlodipine 2.5 mg daily
Off metoprolol 25 mg daily.
3. L foot wound - does not appear infected
DC further PO Keflex
wound care CS
4. R arm swelling with R shoulder pain
Checked R elbow and R Shoulder XR
No fracture, No DVT, Does have soft tissue swelling
Likely related to his fall off the bed
PT as needed
Cont PT OT eval
5. resolved acute hypoxic resp insufficiency with H/o COPD, and positive UDS for drugs
off O2, walking pulse Ox- no need for home O2
cont inhaler
6. R hand pain and unable to make a fist
R hand XR:
No acute fracture or dislocation.
Osteoarthrosis of the right hand, most severe at the first carpometacarpal joint with marked joint space narrowing, subchondral sclerosis, subchondral cysts, and large marginal osteophytes.
Chronic, healed fracture of the fifth metacarpal with bony remodeling.
Tylenol PRN for pain control
Repeat XRs due to severity of pain - neg for fx - symptoms improving
7. Dispo: inpatient psych bed needed as next step given results of hearing.
Case management - placement
8. Iron deficiency anemia
PO Iron
Outpt work up
DVT ppx: Lovenox SQ
DW Psych
Anticipated Discharge: 24 - 48 hours
Subjective/Interval History
-
Date of Service: March 13, 2025
right arm pain improving
Objective Data
-
Vital Signs:
Vital Signs
Temp Pulse Resp BP Pulse Ox
98.2 F 93 16 126/62 97
03/13/25 07:01 03/13/25 08:46 03/13/25 07:01 03/13/25 08:46 03/13/25 07:01
I&O
03/12/25 03/13/25 03/14/25
06:59 06:59 06:59
Intake Total 1919 2840 / 2840
Balance 1919 2840 / 2840
Review of Systems
-
History Source: Patient
All other systems: Not reviewed unless documented
Physical Exam
-
General: Well Developed, Well Nourished, No Apparent Distress and Comfortable
HEENT: Normocephalic, Nose Appears Normal and Ears Appear Normal
Respiratory: Non Labored Respirations
Skin: Dry; Negative Rash
Data Reviewed
-
Diagnostic Radiology: Report Reviewed by me
Labs: Labs Reviewed by me
--- NOTE | 2025-03-13 14:03 | PN.CDI ---
CDI
- -
CDI:
Physician Documentation Request
Admit Date: 03/12/25 09:43
Dear Doctor Diane,
Please review the following and provide your response in the progress notes.
Clinical Indicators:
- 03/13 PN ' Elevated trop possibly NSTEMI vs non-ischemic myocardial injury'
- declined nuclear stress
- 'Troponin trend is flat...No need to trend further'
- 'Suspect nonischemic myocardial injury troponin elevation'
Please clarify the following regarding the documented myocardial infarction
NSTEMI
Non-ischemic myocardial injury
Other (please specify)
Use of terms such as suspected, likely, concern for, or probable (associated with a specific diagnosis that is being evaluated, monitored, or treated as if it exists) are acceptable and can be coded in the inpatient setting, when documented at the
time of discharge.
Thank you,
Scott Wrihgt RN
CDI Specialist
Please use your independent medical judgment in providing your response.
--- NOTE | 2025-03-13 14:06 | PN.CDI ---
CDI
- -
CDI:
Physician Documentation Request
Admit Date: 03/12/25 09:43
Dear Doctor Diane,
Please review the following and provide your response in the progress notes.
Clinical Indicators:
- Patient admit for failure to thrive and concern of depression
- 03/13 PN 'found by [facility] laying on the ground next to his bed'
Laboratory Tests
03/06/25
09:58
Creatine Kinase 270 H
Please provide a diagnosis for the above lab values that were monitored and treatment rendered:
Traumatic rhabdomyolysis
Non traumatic rhabdomyolysis
Clinically insignificant abnormal lab value
Other (please specify)
Use of terms such as suspected, likely, concern for, or probable (associated with a specific diagnosis that is being evaluated, monitored, or treated as if it exists) are acceptable and can be coded in the inpatient setting, when documented at the
time of discharge.
Thank you,
Scott Wright RN
CDI Specialist
Please use your independent medical judgment in providing your response.
--- NOTE | 2025-03-13 14:13 | PN.CDI ---
CDI
- -
CDI:
Physician Documentation Request
Admit Date: 03/12/25 09:43
Dear Doctor Diane,
Please review the following and provide your response in the progress notes.
Clinical Indicators:
- Ventilated Rib Fitter note indicates mild protein calorie malnutrition
- Sudden poor nutrient intake prior to/during admit </=75% for >/= 5 days
- Mild subcutaneous loss over orbital
- Mild muscle loss over temporal
Based on the above information and your assessment, which of the following most accurately represents the patient's nutritional status?
Mild protein calorie malnutrition
Other (please specify)
[place] Criteria ([facility] Hospitalist 2017)
2 or more criteria must be present for either
non severe or severe malnutrition
Note that the criteria differs related to the
presence of an acute or chronic illness
Acute Illness Chronic Illness
Energy Intake Non Severe: <75% for >7 days Non Severe: <75% for >1 month
Severe: <50% for >5 days Severe: <75% for >1 month
Weight Loss Non Severe: 1-2% over 1 week Non Severe: 5% over 1 month
5% over 1 month 7.5% over 3 months
7.5% over 3 months 10% over 6 months
1 year N/A 20% over 1 year
Severe: >2% over 1 week Severe: >5% over 1 month
>5% over 1 month >7.5% over 3 months
>7.5% over 3 months >10% over 6 months
1 year N/A >20% over 1 year
Body Fat Non Severe: Mild Decrease Non Severe: Mild Loss
Severe: Moderate Decrease Severe: Severe Loss
Muscle Mass Non Severe: Mild Decrease Non Severe: Mild Loss
Severe: Moderate Decrease Severe: Severe Loss
Fluid Accumulation Non Severe: Mild Accumulation Non Severe: Mild Accumulation
Severe: Moderate to severe Severe: Moderate to severe
accumulation accumulation
Reduced Iphone Developer Strength Non Severe: N/A Non Severe: N/A
Severe: Measurably reduced Severe: Measurably reduced
Additional criteria that can be used to Determine if Mild or Moderate Malnutrition ([employer] Manual 2018)
Mild Moderate Severe
Albumin gm/dl <3.0 gm/dl <2.5 gm/dl <2.0 gm/dl
Pre Albumin mg/dl <15 gm/dl <10 mg/dl <5.0 mg/dl
BMI <18.5 <17 <16
Use of terms such as suspected, likely, concern for, or probable (associated with a specific diagnosis that is being evaluated, monitored, or treated as if it exists) are acceptable and can be coded in the inpatient setting, when documented at the
time of discharge.
Thank you,
Scott Wright RN
CDI Specialist
Please use your independent medical judgment in providing your response.
[2025-03-13 15:25] VITALS: BP 112/49
[2025-03-13] MEDS: LOVENOX SC (17:33)
[2025-03-13] MEDS: LIPITOR PO (17:33)
[2025-03-13] MEDS: PEPCID 20 MG PO (20:21)
[2025-03-13] MEDS: NEURONTIN 1200 MG PO (20:21)
[2025-03-13] MEDS: SEROQUEL 300 MG PO (20:22)
[2025-03-13] MEDS: ZOLOFT 100 MG PO (20:24)
[2025-03-13 23:48] VITALS: BP 98/54
[2025-03-14] MEDS: TYLENOL 650 MG PO ×2 (04:27→10:55)
[2025-03-14 07:15] VITALS: BP 103/53
[2025-03-14] MEDS: PROTONIX 40 MG PO ×2 (08:18→20:23)
[2025-03-14] MEDS: ASPIR LOW (ENTERIC COATED) 81 MG PO (08:18)
[2025-03-14] MEDS: FEOSOL 325 MG PO (08:18)
[2025-03-14] MEDS: NICODERM TRANSDERMAL TRANSDERM (08:19)
[2025-03-14] MEDS: NORVASC 2.5 MG PO (08:19)
--- NOTE | 2025-03-14 10:34 | CM ---
Addendum entered by Citlalli Benavidez RN 03/14/25 11:29:
CM left voice message for Stephanie ([phone]) from [facility] to discuss discharge planning.
Original Note:
Reviewed the chart notes and spoke with attending psychiatrist Dr. Parish. She requested CM reach out to IRENE Lopez with [facility] and see about having the guns in patient's home removed. CM left voice message for Jessica. Thus so far facilities have
turned patient down. CM continues to be available to patient/family and is monitoring medical plan for needs at discharge.
Plan: Discharge to home once 303 is completed or when physicians feel patient is medically/mentally stable for discharge.
--- NOTE | 2025-03-14 11:20 | W.PN.UPDATE ---
Addendum entered and electronically signed by Danyel Parish MD 03/14/25 14:49:
spoke to patient's brother in law mr remigio vigil. brother in law has been helping [facility] on aging to honor the memory of his sister who was patient's . he describes that mr hannon has always lived a very marginal existence. did
everything for him 'he can't make a pb and j sandwich' patient alleged to have been very emotionally abusive to his and very negligent. 'she did everything for him'. mr vigil has removed all of the guns from the home. he has also found a
large cache of meds in the bedroom closet which he is concerned about and i asked cm to let [facility] know this so they can go through them and dispose as needed. he also is setting up auto payment of bills and getting some food in the house. mr vigil
worries patient will not be able to remain on his own for long. he also is worried patient will not be able to take care of the dog adequately. this info should be relayed to [facility] on a. patient receiving care through [facility] and wishes to continue w this
i am told by cm
likely will dc patient tomorrow or wednesday. i will talk w brother in law tomorrow again. cm will communicate this info to those caring for him in community
total time for this patient today 60 minutes
Original Note:
Update Note
Progress Note Update
patient seen chart reviewed. spoke with nursing and with cm. the patient is adamant and i would say convincing at this point that he will not harm self although he is grieving. he misses his who in the past several months. he told me
about the arguments that have him from his family. 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 we talked about the need for him
to have some supports. he is thinking of joining a roman catholic. he and his attended a roman catholic in [place] but that is kind of far for him now. he does not know how long he has been on zoloft and seroquel or who prescribed it for him. he has a new
pcp he has not lyet met. he had an appt prior to coming here. he is willing to see her for his meds and for medical reasons. i suggested php but he thinks that would be too difficult to maneuver for him ...it is everyday nine to five. the
[facility] program would be another possibility but the problem for attending [facility] for psych is getting him there or doing video sessions. he had a phone delivered recently but does not know if it is a smart phone. another issue we discussed is the gun
in his home. cm is going to call [facility] on a to see if they can get the gun out of the house. he said he would be willing to get his brother in law to remove it but he does not have his phone number. i will see if i can find it on [employer]. spoke to "Adrián"arielle about patient's anemia and whether we can do some investigation as to why hgb is so low. did not change psych meds at this point. would dc one to one. patient has made no moves to harm self and it is my impression that he is not suicidal
at this point not perhaps was he ever but i still feel getting the gun out of the house is a good move as he is grieving and without a lot of support.
--- NOTE | 2025-03-14 11:53 | W.PN.HOSP.TC ---
Addendum entered and electronically signed by Rd Contreras MD 03/14/25 14:39:
Mild protein calorie malnutrition
Traumatic rhabdomyolysis
Non-ischemic myocardial injury
Original Note:
Today's Communication/Plan
-
awaiting placement
iron def - initiate IV iron while inpatient
Assessment / Plan
Assessment / Plan
HPI/hospital course:
69-year-old male with PMH COPD; p/w failure to thrive. Patient was being watched by the agency of aging. Apparently, patient's several months ago and pt has been declining since. He was found by [employer] laying on the ground next to his
bed. There is concern of depression. Patient is a limited historian. Denies to symptoms. He appeared disheveled, unkept, and cachectic on arrival on 03/06.
A/P:
1. FTT, with Concern of depression with recent passing of .
CT head on admission showed No acute intracranial abnormality.
UDS on admission positive for oxycodone, methadone, tricyclic and cocaine
Urine culture no growth
TSH WNL at 1.70
Continue Seroquel and Zoloft
Principal Software Architect recommends inpt psych disposition as next step
Psych following
Ok to transfer when inpatient psych bed is available
2. Elevated trop possibly NSTEMI vs non-ischemic myocardial injury
TWI noted on EKG
Card on board, offered Lexiscan nuclear stress test which he declined
Card [facility] medical treatment with Aspirin 81 mg daily, Atorvastatin 40 mg daily, Amlodipine 2.5 mg daily
Off metoprolol 25 mg daily.
3. L foot wound - does not appear infected
DC further PO Keflex
wound care CS
4. R arm swelling with R shoulder pain
Checked R elbow and R Shoulder XR
No fracture, No DVT, Does have soft tissue swelling
Likely related to his fall off the bed
PT as needed
Cont PT OT eval
5. resolved acute hypoxic resp insufficiency with H/o COPD, and positive UDS for drugs
off O2, walking pulse Ox- no need for home O2
cont inhaler
6. R hand pain and unable to make a fist
R hand XR:
No acute fracture or dislocation.
Osteoarthrosis of the right hand, most severe at the first carpometacarpal joint with marked joint space narrowing, subchondral sclerosis, subchondral cysts, and large marginal osteophytes.
Chronic, healed fracture of the fifth metacarpal with bony remodeling.
Tylenol PRN for pain control
Repeat XRs due to severity of pain - neg for fx - symptoms improving
7. Dispo: inpatient psych bed needed as next step given results of hearing.
Case management - placement
8. Iron deficiency anemia
Initiated IV Iron while inpatient
Ferritin not sig elevated
Monitor
Will need Colonoscopy and primary care screening outpt
DVT ppx: Lovenox SQ
DW Psych
Anticipated Discharge: Within 24 hours
Subjective/Interval History
-
Date of Service: March 14, 2025
no acute events
Objective Data
-
Vital Signs:
Vital Signs
Temp Pulse Resp BP Pulse Ox
98.5 F 96 18 103/53 100
03/14/25 07:15 03/14/25 07:15 03/14/25 07:15 03/14/25 07:15 03/14/25 07:15
I&O
03/13/25 03/14/25 03/15/25
06:59 06:59 06:59
Intake Total 2840 / 2840 1200 / 1200 240 / 240
Balance 2840 / 2840 1200 / 1200 240 / 240
Review of Systems
-
History Source: Patient
All other systems: Not reviewed unless documented
Physical Exam
-
General: Well Developed, Well Nourished, No Apparent Distress and Comfortable
HEENT: Normocephalic, Nose Appears Normal and Ears Appear Normal
Respiratory: Non Labored Respirations
Skin: Dry; Negative Rash
Data Reviewed
-
Diagnostic Radiology: Report Reviewed by me
Labs: Labs Reviewed by me
[2025-03-14] MEDS: FLEXERIL 10 MG PO (12:04)
[2025-03-14] MEDS: FERRLECIT 110 MG IV (13:24)
[2025-03-14 13:40] VITALS: BP 107/54; PULSE 82; O2SAT 100
[2025-03-14 15:40] VITALS: BP 140/59
[2025-03-14] MEDS: LOVENOX SC (17:30)
[2025-03-14] MEDS: LIPITOR PO (17:30)
[2025-03-14] MEDS: PEPCID 20 MG PO (20:22)
[2025-03-14] MEDS: ZOLOFT 100 MG PO (20:23)
[2025-03-14] MEDS: NEURONTIN 1200 MG PO (20:23)
[2025-03-14] MEDS: SENOKOT-S 1 TABLET PO (20:25)
[2025-03-14] MEDS: SEROQUEL 300 MG PO (20:25)
[2025-03-14 23:40] VITALS: BP 102/48
[2025-03-15] MEDS: TYLENOL 650 MG PO ×2 (04:17→19:45)
[2025-03-15] MEDS: FLEXERIL 10 MG PO ×2 (04:17→20:21)
[2025-03-15 06:45] LABS: Hematocrit 23.2 % (39.0-52.0); Hemoglobin 7.8 g/dL (13.0-18.0); Mean Corp Hgb Conc. 33.6 g/dL (33.0-37.0); Mean Corpuscular Volume 101.8 fL (80.0-94.0); Platelet Count 180 10^3/uL (130-400); Red Cell Dist. Width 15.5 % (11.5-14.5)
[2025-03-15 07:20] LABS: Blood Urea Nitrogen 16 mg/dl (9-20); Calcium 8.4 mg/dl (8.4-10.2); Carbon Dioxide 22 mmol/L (22-30); Chloride 112 mmol/L (98-107); Estimated Creatinine Clearance 99 ml/min; Glucose 117 mg/dl (70-99); Potassium 4.0 mmol/L (3.5-5.1); Sodium 136 mmol/L (135-145); eGFR > 60.00
[2025-03-15 07:30] VITALS: BP 113/46
[2025-03-15] MEDS: NICODERM TRANSDERMAL TRANSDERM (09:09)
[2025-03-15] MEDS: MIRALAX 17 GRAMS PO (09:09)
[2025-03-15] MEDS: NORVASC 2.5 MG PO (09:10)
[2025-03-15] MEDS: ASPIR LOW (ENTERIC COATED) 81 MG PO (09:10)
[2025-03-15] MEDS: PROTONIX 40 MG PO ×2 (09:10→20:20)
--- NOTE | 2025-03-15 11:34 | W.PN.UPDATE ---
Update Note
Progress Note Update
patient seen chart reviewed. spoke with nursing and with dr guzmán. at this point from a psych perspective patient could be dc with in home services for PT OT and VNA. he is willing and says able to get to the [facility] for his medical care. i spoke to
dr guzmán who is going to keep him for another day given that hgb has fallen. he has already received iron infusion. patient will need a ride home...brother in law phone number is [phone] he may be willing to pick him up. see my noted from
yesterday re my conversation with brother in law. the patient has generally been cooperative here in the hospital. despite the fact that he did not want to be here and saw it as an intrusion into his life he never acted out angrily. nor did he seem
particularly depressed. what motivated me was for the most part the gun in his home which has now been removed and hopefully area office on againt [facility] outpt PT and OT will follow him. if he does not succeed at this point i would say that trying to
find a more appropriate living arrangement than living alone might be the way to go. i don't really see at this point what a psych hospital would do for him. he does not seem very depressed. certainly no psychosis. affect okay and patient has been
cooperative. would continue psych meds as currently seroquel 300 q hs and zoloft 100 mg daily. i believe the gabapentin is being prescribed for neuropathy not psych.
[2025-03-15 11:57] LABS: Hematocrit 25.5 % (39.0-52.0); Hemoglobin 8.6 g/dL (13.0-18.0); Mean Corp Hgb Conc. 33.7 g/dL (33.0-37.0); Mean Corpuscular Volume 101.6 fL (80.0-94.0); Platelet Count 192 10^3/uL (130-400); Red Cell Dist. Width 15.4 % (11.5-14.5)
--- NOTE | 2025-03-15 14:21 | CM ---
Addendum entered by Skip Dean 03/15/25 16:12:
[facility] declined patient for services: No PCP and needs are too great.
Addendum entered by Skip Dean 03/15/25 15:17:
Per RN on unit: When discussing discharge and the need for HH services patient said 'when I go home I'm going to shoot myself.' When she further questioned him about plan, he continued to say 'it was a joke.' denies plan, denies wanting to act on
ending his life.
Team consulted and decision to keep patient as inpatient until 03/19/25.
Original Note:
Patient for possible discharge on 03/16/25. Therapy recommended PT services. Discussed with patient. [facility], PT/OT. Per psychiatry, patient can be home alone as long as he has services. Per psychiatry note, [id number]
has removed the guns from patient's home. Patient will need ride home. Brendan Childers, [id number], will be out of town. Spoke with Ore Trimmer and Director, will need to get a LYFT for transport home.
Discharge POC: Home with [facility] RN, PT/OT services.
--- NOTE | 2025-03-15 14:32 | W.PN.UPDATE ---
Update Note
Progress Note Update
spoke to brother in law again. he continues to clear up the house and make it safe as possible for mr hannon's return. brother in law will be out of town as of this evening. not clear who can get patient home if he is dc'ed in the am. brother in
law tells me he found a number of empty bottles of alcoholic beverages and he wonders how much mr hannon was drinking which may account for some of his dysfunctionality. all of the etoh is now gone as are the guns.
--- NOTE | 2025-03-15 14:42 | W.PN.HOSP.TC ---
Today's Communication/Plan
-
DC on amlodipine, ASA, statin
cont ferritin
F/u GI, PCP, Cards, Psych outpt
Pscy cleared patient to go home
Assessment / Plan
Assessment / Plan
HPI/hospital course:
69-year-old male with PMH COPD; p/w failure to thrive. Patient was being watched by the agency of aging. Apparently, patient's several months ago and pt has been declining since. He was found by [employer] laying on the ground next to his
bed. There is concern of depression. Patient is a limited historian. Denies to symptoms. He appeared disheveled, unkept, and cachectic on arrival on 03/06.
A/P:
1. FTT, with Concern of depression with recent passing of .
CT head on admission showed No acute intracranial abnormality.
UDS on admission positive for oxycodone, methadone, tricyclic and cocaine
Urine culture no growth
TSH WNL at 1.70
Continue Seroquel and Zoloft
Psych clearing patient for home
2. Elevated trop possibly NSTEMI vs non-ischemic myocardial injury
TWI noted on EKG
Card on board, offered Lexiscan nuclear stress test which he declined
Card [facility] medical treatment with Aspirin 81 mg daily, Atorvastatin 40 mg daily, Amlodipine 2.5 mg daily
Off metoprolol 25 mg daily.
Follow-up cardiology outpatient
3. L foot wound - does not appear infected
DC further PO Keflex
wound care CS
4. R arm swelling with R shoulder pain, improving
Checked R elbow and R Shoulder XR
No fracture, No DVT, Does have soft tissue swelling
Likely related to his fall off the bed
PT as needed
Cont PT OT eval
5. resolved acute hypoxic resp insufficiency with H/o COPD, and positive UDS for drugs
off O2, walking pulse Ox- no need for home O2
cont inhaler
6. R hand pain and unable to make a fist
R hand XR:
No acute fracture or dislocation.
Osteoarthrosis of the right hand, most severe at the first carpometacarpal joint with marked joint space narrowing, subchondral sclerosis, subchondral cysts, and large marginal osteophytes.
Chronic, healed fracture of the fifth metacarpal with bony remodeling.
Tylenol PRN for pain control
Repeat XRs due to severity of pain - neg for fx - symptoms improving
7. Dispo: Psychiatry cleared patient for outpatient discharge
8. Iron deficiency anemia
Initiated IV Iron while inpatient
Ferritin not sig elevated
Discharged on ferrous sulfate, I suspect noncompliant at home
Will need Colonoscopy and primary care screening outpt
DVT ppx: Lovenox SQ
DW Psych
More than 30 minutes spent in discharge including
Final examination of the patient
Summarizing hospital stay
Instructions for continuing care to all relevant caregivers
Preparation of discharge records, prescriptions, and referral forms
Total time spent (in minutes): 36
Anticipated Discharge: Today
Subjective/Interval History
-
Date of Service: March 15, 2025
No acute events overnight
Objective Data
-
Labs:
Laboratory Results
03/15/25 03/15/25
06:06 11:41
WBC 4.0 L 4.1 L
Hgb 7.8 L 8.6 L
Hct 23.2 L 25.5 L
Plt Count 180 192
Sodium 136
Potassium 4.0
Chloride 112 H
Carbon Dioxide 22
BUN 16
Creatinine 0.7
Glucose 117 H
Calcium 8.4
Vital Signs:
Vital Signs
Temp Pulse Resp BP Pulse Ox
98.4 F 82 16 113/46 100
03/15/25 07:30 03/15/25 07:30 03/15/25 07:30 03/15/25 07:30 03/15/25 07:30
I&O
03/14/25 03/15/25 03/16/25
06:59 06:59 06:59
Intake Total 1200 / 1200 340 / 340
Balance 1200 / 1200 340 / 340
Review of Systems
-
History Source: Patient
All other systems: Not reviewed unless documented
Physical Exam
-
General: Well Developed, Well Nourished, No Apparent Distress and Comfortable
HEENT: Normocephalic, Nose Appears Normal and Ears Appear Normal
Respiratory: Non Labored Respirations
Skin: Dry; Negative Rash
Data Reviewed
-
Diagnostic Radiology: Report Reviewed by me
Labs: Labs Reviewed by me
--- NOTE | 2025-03-15 14:45 | W.DS.TRANS ---
DC Summary - Stitch Separator
-
Discharge Instructions:
Discharge Diagnosis/Procedures FTT, with Concern of depression
Elevated trop possibly NSTEMI vs non-ischemic
myocardial injury
Iron deficiency anemia
Diet Low Fiber,Low Cholesterol
Blood Work cbc and bmp in 3-5 days with pcp
Colonoscopy, Primary screening outpatient
Instructions:
Stand-Alone Forms:
Changes to Home Medications: Yes
Discharge Medications:
DC Medications w/original date entered in [employer]
albuterol sulfate 90 mcg/actuation aerosol inhaler 1 puff inhalation R Q4HPRN PRN sob or wheezing ##1 01/25/20
aspirin 81 mg tablet,delayed release 81 mg PO DAILY Heart Disease/Condition 03/06/25
cyclobenzaprine 10 mg tablet 10 mg PO HSPRN PRN spasms 03/06/25
diclofenac sodium 1 % topical gel 0 g topical DAILYPRN PRN areas of pain 03/06/25
duloxetine 60 mg capsule,delayed release (Cymbalta) 60 mg PO DAILY Mental Health/Anxiety 03/06/25
nicotine 21 mg/24 hr daily transdermal patch 1 patch transdermal DAILY NICOTINE REPLACEMENT 03/06/25
pantoprazole 40 mg tablet,delayed release (Protonix) 40 mg PO BID Gastrointestinal Issue 03/06/25
sertraline 100 mg tablet 100 mg PO HS Mental Health/Anxiety 03/06/25
famotidine 20 mg tablet 20 mg PO HS Gastrointestinal Issue 03/07/25
amlodipine 2.5 mg tablet 2.5 mg PO DAILY 30 days #30 tabs 03/15/25
atorvastatin 40 mg tablet 40 mg PO QPM 30 days #30 tabs 03/15/25
ferrous sulfate 325 mg (65 mg iron) tablet 325 mg PO Q48H Supplement 30 days #30 tabs 03/15/25
gabapentin 400 mg capsule 1,200 mg (3 x 400 mg) PO HS 30 days #90 caps 03/15/25
quetiapine 300 mg tablet (Seroquel) 300 mg PO HS Mental Health/Anxiety 30 days #0 tabs 03/15/25
Home Medication Changes
amlodipine 2.5 mg tablet 2.5 mg PO DAILY 30 days #30 tabs 03/15/25
atorvastatin 40 mg tablet 40 mg PO QPM 30 days #30 tabs 03/15/25
ferrous sulfate 325 mg (65 mg iron) tablet 325 mg PO Q48H Supplement 30 days #30 tabs 03/15/25
gabapentin 400 mg capsule 1,200 mg (3 x 400 mg) PO HS 30 days #90 caps 03/15/25
quetiapine 300 mg tablet (Seroquel) 300 mg PO HS Mental Health/Anxiety 30 days #0 tabs 03/15/25
Pending Results: No
--- NOTE | 2025-03-15 15:16 | WOUNDNOTE ---
WOC RN NOTE: Patient visited to follow up on left heel open blister. At time of assessment wound was open to air as patient prefers. Open blister is dry, not open areas noted. Patient ambulating without difficulty. Plan is for discharge home with
home services.
--- NOTE | 2025-03-15 15:18 | WOUNDNOTE ---
LEFT HEEL [birth year], MR [id number]
[2025-03-15 15:19] VITALS: BP 148/68
[2025-03-15 15:25] VITALS: BP 148/68
[2025-03-15] MEDS: FERRLECIT 110 MG IV (15:46)
[2025-03-15] MEDS: LIPITOR PO (15:47)
[2025-03-15] MEDS: LOVENOX SC (15:47)
--- NOTE | 2025-03-15 15:55 | PTCARENOTE ---
Went in to patient's room to discuss discharge plan. Patient adamantly refuses home services and stated 'When I go home I'm going to shoot myself.' This RN further questioned patient on plan, pt replied 'it was a joke' and denied plan and desire to
act. Dr. Contreras, Dr. Parish, and Skip CANCHOLA made aware. Discharge cancelled. Per Dr. Parish, one to one is not warranted at this time.
[2025-03-15] MEDS: NEURONTIN 1200 MG PO (20:20)
[2025-03-15] MEDS: ZOLOFT 100 MG PO (20:20)
[2025-03-15] MEDS: SEROQUEL 300 MG PO (20:20)
[2025-03-15] MEDS: PEPCID 20 MG PO (20:21)
[2025-03-15 23:40] VITALS: BP 138/51
[2025-03-16] MEDS: TYLENOL 650 MG PO ×2 (05:25→15:20)
[2025-03-16 07:54] LABS: Blood Urea Nitrogen 14 mg/dl (9-20); Calcium 8.5 mg/dl (8.4-10.2); Carbon Dioxide 20 mmol/L (22-30); Chloride 111 mmol/L (98-107); Estimated Creatinine Clearance 99 ml/min; Glucose 93 mg/dl (70-99); Potassium 4.1 mmol/L (3.5-5.1); Sodium 137 mmol/L (135-145); eGFR > 60.00
[2025-03-16 08:05] VITALS: BP 107/47
[2025-03-16] MEDS: NICODERM TRANSDERMAL TRANSDERM ×2 (08:30→08:44)
[2025-03-16] MEDS: NORVASC 2.5 MG PO (08:43)
[2025-03-16] MEDS: ASPIR LOW (ENTERIC COATED) 81 MG PO (08:43)
[2025-03-16] MEDS: PROTONIX 40 MG PO ×2 (08:44→20:22)
[2025-03-16] MEDS: FLEXERIL 10 MG PO ×2 (08:50→21:19)
--- NOTE | 2025-03-16 13:13 | W.PN.UPDATE ---
Update Note
Progress Note Update
Pt seen & evaluated at bedside, chart reviewed. Pt was being considered for discharge however made a statement about shooting himself in the head when he gets home - attempted to discuss with pt concerns that statements like this raise, however pt
was unable to demonstrate insight as to why this statement could be concerning. States that he wants to leave so that he can get his dog from [facility], however is not sure how or why his dog is there (to note, pts brother in law has raised concerns
about pts ability to care for not just himself but for his dog as well, dog is at [facility] to be boarded while pt is in hospital for now). Pt is not able to meaningfully discuss safety concerns that affect discharge without some agitation - minimizes
all concerns raised, including those relating to just his ability to physically care for himself. Desptie this he remains agreeable to staying here for the time being.
Pt was supposed to get HH which seems to be delayed as well due to lack of his having a PCP - would need to address this as well prior to discharge.
Pts brother in law has been helping the past few days by going to pts home and clearing out the weapons there as well as ensuring he has basic necessities there, it appears that he is unfortunately away until wednesday however.
Given pts lack of insight & lack of resources to safely care for himself at home, would be best to delay discharge until safety concerns are addressed which will likely be Wednesday (to note, pt remains on 302 until then as well).
Will discuss HH service options with CM as well as pt reported that he does have a PCP but just has not met the new one yet.
No change to medication at this time, pt likely to benefit more from environmental factors at this time.
--- NOTE | 2025-03-16 13:57 | W.PN.HOSP.TC ---
Today's Communication/Plan
-
psych clearance
Assessment / Plan
Assessment / Plan
HPI/hospital course:
69-year-old male with PMH COPD; p/w failure to thrive. Patient was being watched by the agency [facility]. Apparently, patient's several months ago and pt has been declining since. He was found by [employer] laying on the ground next to his
bed. There is concern of depression. Patient is a limited historian. Denies to symptoms. He appeared disheveled, unkept, and cachectic on arrival on 03/06.
A/P:
1. FTT, with Concern of depression with recent passing of .
CT head on admission showed No acute intracranial abnormality.
UDS on admission positive for oxycodone, methadone, tricyclic and cocaine
Urine culture no growth
TSH WNL at 1.70
Continue Seroquel and Zoloft
Psych clearing patient for home
2. Elevated trop possibly NSTEMI vs non-ischemic myocardial injury
TWI noted on EKG
Card on board, offered Lexiscan nuclear stress test which he declined
Card [facility] medical treatment with Aspirin 81 mg daily, Atorvastatin 40 mg daily, Amlodipine 2.5 mg daily
Off metoprolol 25 mg daily.
Follow-up cardiology outpatient
3. L foot wound - does not appear infected
DC further PO Keflex
wound care CS
4. R arm swelling with R shoulder pain, improving
Checked R elbow and R Shoulder XR
No fracture, No DVT, Does have soft tissue swelling
Likely related to his fall off the bed
PT as needed
Cont PT OT eval
5. resolved acute hypoxic resp insufficiency with H/o COPD, and positive UDS for drugs
off O2, walking pulse Ox- no need for home O2
cont inhaler
6. R hand pain and unable to make a fist
R hand XR:
No acute fracture or dislocation.
Osteoarthrosis of the right hand, most severe at the first carpometacarpal joint with marked joint space narrowing, subchondral sclerosis, subchondral cysts, and large marginal osteophytes.
Chronic, healed fracture of the fifth metacarpal with bony remodeling.
Tylenol PRN for pain control
Repeat XRs due to severity of pain - neg for fx - symptoms improving
7. Dispo: Psychiatry cleared patient for outpatient discharge; patient stated he would shoot himself on 03/15 prior to discharge and therefore discharge to be held till Monday 03/19 as brother will be home
8. Iron deficiency anemia
Initiated IV Iron while inpatient
Ferritin not sig elevated
Discharged on ferrous sulfate, I suspect noncompliant at home
Will need Colonoscopy and primary care screening outpt
DVT ppx: Lovenox SQ
DW Psych
Anticipated Discharge: > 48 hours
Subjective/Interval History
-
Date of Service: March 16, 2025
Discharge was held due to patient stating he will shoot himself once he goes home
Objective Data
-
Labs:
Laboratory Results
03/16/25
06:58
Sodium 137
Potassium 4.1
Chloride 111 H
Carbon Dioxide 20 L
BUN 14
Creatinine 0.7
Glucose 93
Calcium 8.5
Vital Signs:
Vital Signs
Temp Pulse Resp BP Pulse Ox
98.4 F 85 16 107/49 96
03/16/25 08:05 03/16/25 08:43 03/16/25 08:05 03/16/25 08:43 03/16/25 08:15
I&O
03/15/25 03/16/25 03/17/25
06:59 06:59 06:59
Intake Total 340 / 340 1440 / 1440
Balance 340 / 340 1440 / 1440
Review of Systems
-
History Source: Patient
All other systems: Not reviewed unless documented
Data Reviewed
-
Diagnostic Radiology: Report Reviewed by me
Labs: Labs Reviewed by me
[2025-03-16] MEDS: FERRLECIT 110 MG IV (14:52)
[2025-03-16 15:20] VITALS: BP 128/58
[2025-03-16] MEDS: LOVENOX 40 MG SC (17:36)
[2025-03-16] MEDS: LIPITOR PO (17:41)
[2025-03-16] MEDS: SEROQUEL 300 MG PO (20:21)
[2025-03-16] MEDS: ZOLOFT 100 MG PO (20:25)
[2025-03-16] MEDS: NEURONTIN 1200 MG PO (20:26)
[2025-03-16] MEDS: PEPCID 20 MG PO (20:26)
[2025-03-16 23:15] VITALS: BP 104/52
[2025-03-17 07:45] VITALS: BP 137/60
[2025-03-17] MEDS: PROTONIX 40 MG PO ×2 (08:57→20:49)
[2025-03-17] MEDS: ASPIR LOW (ENTERIC COATED) 81 MG PO (08:57)
[2025-03-17] MEDS: FLEXERIL 10 MG PO ×3 (08:57→21:02)
[2025-03-17] MEDS: NORVASC 2.5 MG PO (08:58)
[2025-03-17] MEDS: TYLENOL 650 MG PO ×2 (09:00→15:05)
[2025-03-17] MEDS: NICODERM TRANSDERMAL TRANSDERM (09:01)
--- NOTE | 2025-03-17 10:07 | W.PN.HOSP.TC ---
Today's Communication/Plan
-
psych clearance
most likely dc wednesday with social support
Assessment / Plan
Assessment / Plan
HPI/hospital course:
69-year-old male with PMH COPD; p/w failure to thrive. Patient was being watched by the agency of aging. Apparently, patient's several months ago and pt has been declining since. He was found by [facility] laying on the ground next to his
bed. There is concern of depression. Patient is a limited historian. Denies to symptoms. He appeared disheveled, unkept, and cachectic on arrival on 03/06.
A/P:
1. FTT, with Concern of depression with recent passing of .
CT head on admission showed No acute intracranial abnormality.
UDS on admission positive for oxycodone, methadone, tricyclic and cocaine
Urine culture no growth
TSH WNL at 1.70
Continue Seroquel and Zoloft
Psych clearing patient for home - although will need social support
2. Elevated trop possibly NSTEMI vs non-ischemic myocardial injury
TWI noted on EKG
Card on board, offered Lexiscan nuclear stress test which he declined
Card [facility] medical treatment with Aspirin 81 mg daily, Atorvastatin 40 mg daily, Amlodipine 2.5 mg daily
Off metoprolol 25 mg daily.
Follow-up cardiology outpatient
3. L foot wound - does not appear infected
DC further PO Keflex
wound care CS
4. R arm swelling with R shoulder pain, improving
Checked R elbow and R Shoulder XR
No fracture, No DVT, Does have soft tissue swelling
Likely related to his fall off the bed
PT as needed
Cont PT OT eval
5. resolved acute hypoxic resp insufficiency with H/o COPD, and positive UDS for drugs
off O2, walking pulse Ox- no need for home O2
cont inhaler
6. R hand pain and unable to make a fist
R hand XR:
No acute fracture or dislocation.
Osteoarthrosis of the right hand, most severe at the first carpometacarpal joint with marked joint space narrowing, subchondral sclerosis, subchondral cysts, and large marginal osteophytes.
Chronic, healed fracture of the fifth metacarpal with bony remodeling.
Tylenol PRN for pain control
Repeat XRs due to severity of pain - neg for fx - symptoms improving
7. Dispo: Psychiatry cleared patient for outpatient discharge; patient stated he would shoot himself on 03/15 prior to discharge and therefore discharge to be held till Monday 03/19 as brother will be home
8. Iron deficiency anemia
Initiated IV Iron while inpatient
Ferritin not sig elevated
Discharged on ferrous sulfate, I suspect noncompliant at home
Will need Colonoscopy and primary care screening outpt
DVT ppx: Lovenox SQ
DW Psych
Anticipated Discharge: > 48 hours
Subjective/Interval History
-
Date of Service: March 17, 2025
no acute events
Objective Data
-
Vital Signs:
Vital Signs
Temp Pulse Resp BP Pulse Ox
98.6 F 87 18 137/60 95
03/17/25 07:45 03/17/25 08:58 03/17/25 07:45 03/17/25 08:58 03/17/25 07:45
I&O
03/16/25 03/17/25 03/18/25
06:59 06:59 06:59
Intake Total 1440 / 1440 770 / 770
Balance 1440 / 1440 770 / 770
Review of Systems
-
History Source: Patient
All other systems: Not reviewed unless documented
Data Reviewed
-
Diagnostic Radiology: Report Reviewed by me
Labs: Labs Reviewed by me
--- NOTE | 2025-03-17 13:17 | W.PN.UPDATE ---
Update Note
Progress Note Update
Pt seen at bedside, chart reviewed. Pt sleeping, did not disturb as pt becomes quite irritable whenever awoken and at this time he remains here due to need for safe dispo. Pt has remained cooperative and agreeable thus far, though has not
demonstrated much improvement in level of insight regarding his inability to safely & meaningfully care for himself.
Pt on 303 as of 03/09 for 10 days inpatient, expires Monday 03/19 - pts brother in law is back on Monday 03/19 as well as can help with providing safe dispo to home.
No change to medication at this time, pt likely to benefit more from environmental factors/changes/supports at this time (in particular HH services).
[2025-03-17] MEDS: FERRLECIT 110 MG IV (13:53)
[2025-03-17 15:35] VITALS: BP 135/55
[2025-03-17] MEDS: LOVENOX 40 MG SC (17:43)
[2025-03-17] MEDS: LIPITOR PO (18:06)
[2025-03-17] MEDS: SEROQUEL 300 MG PO (20:58)
[2025-03-17] MEDS: NEURONTIN 1200 MG PO (20:58)
[2025-03-17] MEDS: ZOLOFT 100 MG PO (20:59)
[2025-03-17] MEDS: PEPCID 20 MG PO (20:59)
[2025-03-17 23:45] VITALS: BP 128/57
[2025-03-18 05:13] LABS: Hematocrit 24.4 % (39.0-52.0); Hemoglobin 8.3 g/dL (13.0-18.0); Mean Corp Hgb Conc. 34.0 g/dL (33.0-37.0); Mean Corpuscular Volume 100.4 fL (80.0-94.0); Platelet Count 199 10^3/uL (130-400); Red Cell Dist. Width 15.6 % (11.5-14.5)
[2025-03-18 05:35] LABS: Blood Urea Nitrogen 19 mg/dl (9-20); Calcium 8.3 mg/dl (8.4-10.2); Carbon Dioxide 18 mmol/L (22-30); Chloride 111 mmol/L (98-107); Estimated Creatinine Clearance 99 ml/min; Glucose 114 mg/dl (70-99); Potassium 3.9 mmol/L (3.5-5.1); Sodium 137 mmol/L (135-145); eGFR > 60.00
--- NOTE | 2025-03-18 07:37 | W.PN.HOSP.TC ---
Today's Communication/Plan
-
see plan
Assessment / Plan
Assessment / Plan
HPI/hospital course: 69 male with PMH COPD; p/w failure to thrive. Patient was being watched by the agency of aging. Apparently, patient's several months ago and pt has been declining since. He was found by [employer] laying on the
ground next to his bed. There is concern of depression. Patient is a limited historian. Denies to symptoms. He appeared disheveled, unkept, and cachectic on arrival on 03/06/25.
Gen: NAD, Awake and alert
Eyes: EOMI, PERRLA, no scleral icterus.
Neck: supple.
CV: RRR, +S1/S2, no m/r/g.
Resp: CTAB, no rales, wheezes, or rhonchi.
Abd: +BS, soft, NT, ND
Skin: No rashes.
Neuro: CN 2-12 intact, non-focal.
Psych: moderately depressed affect.
RUE U/S: No evidence of deep venous thrombosis of the right upper extremity.
R hand Xray: Moderate first carpometacarpal joint osteoarthritis. Stable. Mild osteoarthritis of the second through fifth DIP and PIP joints. Stable.
FTT:
-with concern of depression with recent passing of .
-CT head on admission showed No acute intracranial abnormality.
-UDS on admission positive for oxycodone, methadone, tricyclic and cocaine
-UCx NG, TSH normal
-cont Seroquel/Zoloft
-Psychiatry had cleared patient for outpatient discharge; patient stated he would shoot himself on 03/15 prior to discharge and therefore discharge to be held till Monday 03/19 as brother will be home
-Psych following, pt on 303 through 03/19/25. Pt's [id number] is back 03/19/25 and can assist with safe discharge.
Elevated trop:
-TWI noted on EKG
-as per card c/s 03/08/25 non-ischemic myocardial injury
-cardiology saw in c/s and offered Lexiscan nuclear stress test which he declined
-cont ASA/statin/Norvasc as per cards
-note BB was stopped on admission as UDS cocaine POS. Will restart BB at this time.
L foot wound:
-does not appear infected
-cont wound care
R arm swelling with R shoulder pain:
-improving
-R elbow and R Shoulder XR without fx
-RUE U/S without DVT
Acute hypoxic resp insufficiency:
-resolved, off O2
-h/o COPD, and positive UDS for drugs
R hand pain:
-with inability to make a fist
-due to OA
Iron deficiency anemia:
-cont 5 days IV fe while inpt
-likely noncompliant with Ferrous Sulfate at home
-will need screening colonoscopy after d/c
FULL/Lovenox
Total time spent on today's encounter was 50 minutes which included time spent in counseling the patient/family regarding diagnosis and treatment plan as listed above, goals of care, and symptom management. Case was discussed with nursing staff,
specialists, and care coordinators/case management. All labs and imaging personally reviewed by me. Remainder the time spent in detailed review of previous records, lab data, imaging, and other medical provider documentation.
Anticipated Discharge: Within 24 hours
Subjective/Interval History
-
Date of Service: March 18, 2025
No new complaints.
Objective Data
-
Labs:
Laboratory Results
03/18/25
04:43
WBC 5.9
Hgb 8.3 L
Hct 24.4 L
Plt Count 199
Sodium 137
Potassium 3.9
Chloride 111 H
Carbon Dioxide 18 L
BUN 19
Creatinine 0.7
Glucose 114 H
Calcium 8.3 L
Vital Signs:
Vital Signs
Temp Pulse Resp BP Pulse Ox
98.1 F 102 20 128/57 99
03/17/25 23:45 03/17/25 23:45 03/17/25 23:45 03/17/25 23:45 03/17/25 23:45
I&O
03/17/25 03/18/25 03/19/25
06:59 06:59 06:59
Intake Total 770 / 770 1250 / 1250
Balance 770 / 770 1250 / 1250
[2025-03-18 07:40] VITALS: BP 111/62
[2025-03-18] MEDS: PROTONIX 40 MG PO ×2 (08:50→20:03)
[2025-03-18] MEDS: ASPIR LOW (ENTERIC COATED) 81 MG PO (08:50)
[2025-03-18] MEDS: NICODERM TRANSDERMAL TRANSDERM (08:50)
[2025-03-18] MEDS: TOPROL XL 25 MG PO (08:53)
[2025-03-18] MEDS: NORVASC 2.5 MG PO (08:53)
[2025-03-18] MEDS: TYLENOL 650 MG PO ×2 (08:56→23:51)
[2025-03-18] MEDS: FLEXERIL 10 MG PO (09:03)
[2025-03-18] MEDS: FERRLECIT 110 MG IV (14:37)
[2025-03-18 15:35] VITALS: BP 122/50
--- NOTE | 2025-03-18 15:37 | W.PN.UPDATE ---
Update Note
Progress Note Update
Pt seen at bedside, chart reviewed. Pt remains understanding of his extended stay in the hospital, less irritable today and able to future plan meaningfully - is looking forward to discharge tomorrow so he can get his dog and is considering adopting
a second dog to keep his dog company (and I suspect to keep company for himself as well given recent loss of his ). Pt still not demonstrating significant insight as to his inability to care for himself on his own, however is open to getting
help from brother in law and whatever services are available, which is a positive step forward.
He did report today inability to move any of his fingers on his right hand - on exam there is notable limit to range of motion of all fingers, is able to slightly wiggle them only when not doing so against gravity. Movement at wrist with possibly
some limit to extension, but minimal if so. Denies significant pain when doing this. No notable swelling observed, no significant TTP. Pt agreeable to getting CT of hand as XRays show only mild/moderate OA & pt reporting today that he had no trouble
moving fingers prior to falling (fell onto hand).
Pt on 303 as of 03/09 for 10 days inpatient, expires Monday 03/19 - pts brother in law is back on Monday 03/19 as well as can help with providing safe dispo to home.
No change to medication at this time, pt likely to benefit more from environmental factors/changes/supports at this time (in particular services).
Ordered CT of Rt upper extremity, study may be limited but unlikely to schedule MRI prior to discharge tomorrow and may still show necessary information, pt with limited resources and limited ability to use those resources so would benefit from
targeted follow up if such is needed and is possible
[2025-03-18] MEDS: FLEXERIL 5 MG PO (16:16)
[2025-03-18] MEDS: LOVENOX 40 MG SC (16:17)
[2025-03-18] MEDS: LIPITOR PO (16:24)
[2025-03-18] MEDS: NEURONTIN 1200 MG PO (20:03)
[2025-03-18] MEDS: ZOLOFT 100 MG PO (20:03)
[2025-03-18] MEDS: SEROQUEL 300 MG PO (20:04)
[2025-03-18] MEDS: PEPCID 20 MG PO (20:04)
[2025-03-18 23:20] VITALS: BP 114/86
[2025-03-19] MEDS: FLEXERIL 5 MG PO ×2 (01:44→09:52)
--- NOTE | 2025-03-19 08:32 | W.PN.HOSP.TC ---
Today's Communication/Plan
-
see plan
Assessment / Plan
Assessment / Plan
HPI/hospital course: 69 male with PMH COPD; p/w failure to thrive. Patient was being watched by the agency of aging. Apparently, patient's several months ago and pt has been declining since. He was found by [employer] laying on the
ground next to his bed. There is concern of depression. Patient is a limited historian. Denies to symptoms. He appeared disheveled, unkept, and cachectic on arrival on 03/06/25.
Gen: NAD, Awake and alert
Eyes: EOMI, PERRLA, no scleral icterus.
Neck: supple.
CV: remains RRR, +S1/S2, no m/r/g.
Resp: remains CTAB, no rales, wheezes, or rhonchi.
Abd: remains +BS, soft, NT, ND
Skin: No rashes.
Neuro: CN 2-12 intact, non-focal.
Psych: moderately depressed affect.
RUE U/S: No evidence of deep venous thrombosis of the right upper extremity.
R hand Xray: Moderate first carpometacarpal joint osteoarthritis. Stable. Mild osteoarthritis of the second through fifth DIP and PIP joints. Stable.
Fever:
-U/A sent overnight unremarkable
-no leukocytosis
-unclear why further work up was not completed overnight
-check BCxs, CXR (AP and lat), COVID/Flu
FTT:
-with concern of depression with recent passing of .
-CT head on admission showed No acute intracranial abnormality.
-UDS on admission positive for oxycodone, methadone, tricyclic and cocaine
-UCx NG, TSH normal
-cont Seroquel/Zoloft
-Psychiatry had cleared patient for outpatient discharge; patient stated he would shoot himself on 03/15 prior to discharge and therefore discharge to be held till Monday 03/19 as brother will be home
-Psych following, pt on 303 through 03/19/25. Pt's [id number] is back 03/19/25 and can assist with safe discharge. Discharge will be delayed with fever work up.
-Patient states he is leaving the hospital today 'no matter what.' I have reached out to psychiatry to discuss whether the patient currently has capacity and also if he has been cleared for discharge by psychiatry
Elevated trop:
-TWI noted on EKG
-as per card c/s 03/08/25 non-ischemic myocardial injury
-cardiology saw in c/s and offered Lexiscan nuclear stress test which he declined
-cont ASA/statin/Norvasc/BB
-note BB was stopped on admission as UDS cocaine POS.
L foot wound:
-does not appear infected
-cont wound care
R arm swelling with R shoulder pain:
-improving
-R elbow and R Shoulder XR without fx
-RUE U/S without DVT
Acute hypoxic resp insufficiency:
-resolved, off O2
-h/o COPD, and positive UDS for drugs
R hand pain:
-with inability to make a fist
-due to OA
Iron deficiency anemia:
-cont 5 days IV fe while inpt
-likely noncompliant with Ferrous Sulfate at home
-will need screening colonoscopy after d/c
FULL/Lovenox
Total time spent on today's encounter was 51 minutes which included time spent in counseling the patient/family regarding diagnosis and treatment plan as listed above, goals of care, and symptom management. Case was discussed with nursing staff,
specialists, and care coordinators/case management. All labs and imaging personally reviewed by me. Remainder the time spent in detailed review of previous records, lab data, imaging, and other medical provider documentation.
Anticipated Discharge: 24 - 48 hours
Subjective/Interval History
-
Date of Service: March 19, 2025
Denies shortness of breath cough, abdominal pain, vomiting, diarrhea, dysuria.
Objective Data
-
Vital Signs:
Vital Signs
Temp Pulse Resp BP Pulse Ox
99.7 F 90 16 114/86 95
03/19/25 07:29 03/18/25 23:20 03/18/25 23:20 03/18/25 23:20 03/18/25 23:20
I&O
03/18/25 03/19/25 03/20/25
06:59 06:59 06:59
Intake Total 1250 / 1250 1310 / 1310
Output Total 730 / 730
Balance 1250 / 1250 580 / 580
[2025-03-19 08:58] LABS: Hematocrit 25.6 % (39.0-52.0); Hemoglobin 8.6 g/dL (13.0-18.0); Mean Corp Hgb Conc. 33.6 g/dL (33.0-37.0); Mean Corpuscular Volume 100.8 fL (80.0-94.0); Platelet Count 189 10^3/uL (130-400); Red Cell Dist. Width 15.7 % (11.5-14.5)
[2025-03-19 09:16] LABS: Blood Urea Nitrogen 18 mg/dl (9-20); Calcium 8.7 mg/dl (8.4-10.2); Carbon Dioxide 19 mmol/L (22-30); Chloride 110 mmol/L (98-107); Estimated Creatinine Clearance 99 ml/min; Glucose 105 mg/dl (70-99); Potassium 4.1 mmol/L (3.5-5.1); Sodium 137 mmol/L (135-145); eGFR > 60.00
[2025-03-19] MEDS: PROTONIX 40 MG PO (09:48)
[2025-03-19] MEDS: ASPIR LOW (ENTERIC COATED) 81 MG PO (09:52)
[2025-03-19] MEDS: TYLENOL 650 MG PO (09:54)
[2025-03-19 09:55] VITALS: BP 112/41
[2025-03-19] MEDS: NORVASC 2.5 MG PO (09:55)
[2025-03-19] MEDS: TOPROL XL 25 MG PO (09:55)
[2025-03-19] MEDS: NICODERM TRANSDERMAL TRANSDERM (09:56)
[2025-03-19 10:36] LABS: COVID-19 Antigen Negative (Negative)
--- NOTE | 2025-03-19 11:08 | W.PN.UPDATE ---
Update Note
Progress Note Update
Pt seen, chart reviewed. 303 commitment expires today; pt noted to be cooperative overall with no agitation, no psychosis, no signs of active depression. [facility] is a support for pt, noted reporting empty bottles of alcohol in pt's home.
Pt has shown limited insight during his stay, but appears to be at baseline today- alert, with sensorium intact, making good eye contact, affect appropriate, speech coherent, mood stable. Pt clearly expressing wish to be discharged today.
Imp: Unspecified depressive d/o; on 303 which expires today. Inpatient psych treatment is not indicated at this point.
Pt appears to be at baseline mental state; capacity appears to be intact
Rec: Continue Zoloft, Seroquel. Outpatient treatment
Psychiatrically cleared for discharge
[2025-03-19 12:33] LABS: Urine Character Clear (Clear)
[2025-03-19 12:48] LABS: Urine Squamous Cell 0-2 /LPF (Few); Urine White Cell 0-2 /HPF (0-5)
--- NOTE | 2025-03-19 14:09 | VNURNOTE ---
Kindergarten Assistant met with patient to discuss [facility] nurse/therapy, visits, schedule and homebound status. Patient is agreeable and understands that visits at home will be 2-3 x per week to assess and teach medical management.
Pet policy reviewed with patient. He is agreeable to making sure his dog is locked up prior to staff visits. Patient reports his PCP is Dr. Vazquez from the [facility]. He said PCP is leaving that practice and he was scheduled to see another dr,
but was hospitalized instead. Offered to make appt with residency clinic. Patient refused and stated he rather remain with the [facility]. Patient informed that his PCP must be agreeable to signing homecare orders. Patient verbalized understanding. Reviewed
weapons policy with patient. Per COLEEN Cardona, all weapons were removed from the home.
Patient stated his phone recently broke. He ordered a new one, but was delivered while he was in the hospital. He does not have a phone number he can provide. RN instructed patient to call [facility] when he activates his phone and to provide contact
number. [facility] contact information. Patient verbalizes he will call the [facility] when he gets home to set up first visit.
Patient requesting a walker at discharge. Requested script from Dr. Stanley to be left on chart and notified Trupti Wetzel PT.
[facility] referral updated in [facility].
--- NOTE | 2025-03-19 15:19 | CM ---
CM met with tp to review dc planning
[facility] agency phone number provided per his request
He is requesting to leave AMA and has signed formed
WW provided to pt bedside
Multiple discussions with Antoinette/BROOKE
He has a PCp through the [place] and [facility] has accepted him for service
VM left for [place] LISSA Brown/[phone]
Attempted to speaks with [facility] nurse Jessica/[phone], VM box not set up
Call with COLEEN/Brendan [phone]
CM attempted to set pt with up with outpt service through [facility]
As pt does not have a working phon, [facility] unable to complete intake at this time
[facility] contact info provided to pt to call once his new phone arrives
Pt needs a ride home
In agreement with $135 [employer] van fee- he provided payment over phone to Acute Care
Updates to , Dr Fowler, and Director/Cici Tiwari
Discharge Disposition- AMA, home with [facility], new WW- [employer] van transport 1700 pickup
[2025-03-19 15:30] VITALS: BP 126/59
--- NOTE | 2025-03-19 16:56 | PTCARENOTE ---
Patient left AMA; was advised to return to ED with any significant medical issues/concerns; was picked up by wheelchair van at around 4:45 PM to go home.
--- NOTE | 2025-03-20 14:07 | W.DCSUMMARY ---
Discharge Summary
Discharge Data
Date of Admission: 03/08/25
Date of Discharge: 03/19/25 (left AMA)
-
Pending Results: Yes
Additional Pending Results:
final blood culture results
Hospital Course
Primary diagnoses:
Failure to thrive
Elevated troponin
Secondary diagnoses:
Chronic obstructive pulmonary disease
Left foot wound
R arm swelling with R shoulder pain
Consultants:
Psychiatry
Imaging:
RUE U/S: No evidence of deep venous thrombosis of the right upper extremity.
R hand Xray: Moderate first carpometacarpal joint osteoarthritis. Stable. Mild osteoarthritis of the second through fifth DIP and PIP joints. Stable.
R shoulder Xray: No evidence of acute fracture or dislocation.
CT brain: No evidence of acute intracranial abnormality.
CXR 03/06/25: No acute cardiopulmonary process.
CT RUE 03/19/25: There is mild dorsal displacement of the distal ulna. No evidence of acute fracture. There is a chronic deformity of the fifth metacarpal which is likely sequela of prior fracture. There is mild/moderate multifocal degenerative
changes most pronounced at the first carpometacarpal joint.
69 M who presented with failure to thrive. He was being watched by the agency of aging. Apparently the patient's several months prior to admission and the patient had been declining since. He was found by [employer] laying on the ground
next to his bed. There was concern for depression. On admission the patient was a limited historian. He appeared disheveled, unkept, and cachectic on arrival on 03/06/25. Patient was seen by the crisis team and initially was boarding in the ER
pending inpatient psychiatric placement. He had a screening ECG that showed diffuse T wave inversions and had elevated troponins. Cardiac stress test was recommended but the patient refused. The patient then was desaturating with ambulation in
the ER referred him for hospitalization due to hypoxemia. Rest of hospital course per problem list:
FTT: The patient was admitted with failure to thrive with concern of depression with recent passing of . CT head on admission showed No acute intracranial abnormality. UDS on admission positive for oxycodone, methadone, tricyclic and cocaine,
UCx NG, TSH normal. Patient was placed on Seroquel and Zoloft. Patient was seen in consultation by psychiatry. Psychiatry had cleared patient for outpatient discharge; patient stated he would shoot himself on 03/15 prior to discharge and therefore
discharge was held until Monday 03/19 as the patient's brother was to be at home to assist with a safe discharge. On 03/19/25 the patient stated he was going to leave AGAINST MEDICAL ADVICE. I personally discussed the case with Dr. Fowler who stated
that from his standpoint the patient could leave AGAINST MEDICAL ADVICE.
Fever: The patient developed fever the night prior to the day that he left AMA. Urinalysis that was sent was unremarkable. He had no leukocytosis. COVID/Flu were NEG. chest x-ray showed no acute cardiopulmonary abnormality. At the time of this
report blood cultures are no growth to date. The patient left AGAINST MEDICAL ADVICE before his fever workup could be completed.
Elevated trop: TWI noted on EKG. As per cardiology consult on 03/08/25 patient's elevated troponin was non-ischemic myocardial injury. The patient was offered a Lexiscan nuclear stress test which he declined. He was placed on ASA/statin/Norvasc
initially as UDS was POS for cocaine. Beta-rock was added later during admission.
Acute hypoxic respiratory insufficiency: Chest x-ray was clear. This resolved and the patient's pulse ox was adequate off supplemental oxygen. This was likely due to underlying COPD.
Iron deficiency anemia: Patient was likely noncompliant with his ferrous sulfate at home. He completed 5 days of IV iron while hospitalized. Outpatient screening colonoscopy was recommended.
On March 19, 2025 the patient left AGAINST MEDICAL ADVICE.
Discharge Plan
-
Patient Disposition: Against Medical Advice
Discharge Diagnosis/Procedures: FTT, with Concern of depression
Elevated trop possibly NSTEMI vs non-ischemic myocardial injury
Iron deficiency anemia
Condition: Fair
Diet: Low Cholesterol and Low Fiber
Blood Work: cbc and bmp in 3-5 days with pcp
Colonoscopy, Primary screening outpatient
Activity Restrictions/Additional Instructions:
Nuclear Stress test as per Cardiology
Referrals:
Primary care, provider [Other] - in less than 1 week
Onel Sanchez MD [Active, Gastroenterology] - in one to two weeks
Cortez Thomspon MD [Active, Cardiology] - in one to two weeks
NONE,* [Family Provider, Internal Medicine]
Danyel Parish MD [Active, Psychiatry] - in one to two weeks
Prescriptions:
New
atorvastatin 40 mg Tablet
40 mg PO QPM 30 Days Qty: 30 0RF
gabapentin 400 mg Capsule
1,200 mg PO HS 30 Days Qty: 90 0RF
amlodipine 2.5 mg Tablet
2.5 mg PO DAILY 30 Days Qty: 30 0RF
Continued
albuterol sulfate 1 PUFF HFA aerosol inhaler
1 puff inhalation R Q4HPRN PRN (Reason: sob or wheezing) Qty: 1 0RF
pantoprazole [Protonix] 40 mg Tablet,Delayed Release (Dr/Ec)
40 mg PO BID
cyclobenzaprine 10 mg Tablet
10 mg PO HSPRN PRN (Reason: spasms)
nicotine 21 mg/24 hr Patch 24 Hour
1 patch TRANSDERMAL DAILY
diclofenac sodium 1 % Gel
0 g TOPICAL DAILYPRN PRN (Reason: areas of pain)
famotidine 20 MG tablet
20 mg PO HS
quetiapine [Seroquel] 300 mg Tablet
300 mg PO HS 30 Days Qty: 30 0RF
sertraline 100 mg Tablet
100 mg PO HS Qty: 30 0RF
aspirin 81 mg Tablet,Delayed Release (Dr/Ec)
81 mg PO DAILY 30 Days Qty: 30 0RF
ferrous sulfate 325 mg (65 mg iron) Tablet
325 mg PO Q48H 30 Days Qty: 30 0RF
Discontinued
amlodipine 5 MG tablet
5 mg PO DAILY
losartan 25 mg Tablet
25 mg PO DAILY
duloxetine [Cymbalta] 60 mg Capsule,Delayed Release(Dr/Ec)
60 mg PO DAILY
gabapentin 400 mg Tablet
800 mg PO TID
Discharge Date and Time
Discharge Date/Time: 03/19/25 16:56
Print Language: BAHAMIAN
== END 2025-03-19 16:56 | disposition left against medical advice (07) | DRG 641 ==
LOC: 2 NORTH 09:43
PROVIDERS: Emergency Medicine; Internal Medicine; Physician Assistant Medical; Registered Nurse; ADMITTING PHYSICIAN Internal Medicine; ATTENDING PHYSICIAN Internal Medicine; CONSULT PHYSICIAN Internal Medicine Cardiovascular Disease; CONSULT PHYSICIAN Psychiatry & Neurology Psychiatry; EMERGENCY PHYSICIAN Student in an Organized Health Care Education/Training Program
DX: R62.7 Adult failure to thrive (principal); R64 Cachexia; L03.116 Cellulitis of left lower limb; I5A Non-ischemic myocardial injury (non-traumatic); E44.1 Mild protein-calorie malnutrition; Z53.29 Procedure and treatment not carried out because of patient's decision for other reasons; J44.9 Chronic obstructive pulmonary disease, unspecified; M18.9 Osteoarthritis of first carpometacarpal joint, unspecified; M19.041 Primary osteoarthritis, right hand; R09.02 Hypoxemia; D50.9 Iron deficiency anemia, unspecified; F17.200 Nicotine dependence, unspecified, uncomplicated; Z88.5 Allergy status to narcotic agent; Z79.82 Long term (current) use of aspirin; F41.9 Anxiety disorder, unspecified; D47.2 Monoclonal gammopathy; E78.00 Pure hypercholesterolemia, unspecified; F10.20 Alcohol dependence, uncomplicated; F31.9 Bipolar disorder, unspecified; I11.9 Hypertensive heart disease without heart failure; I25.10 Atherosclerotic heart disease of native coronary artery without angina pectoris; L97.509 Non-pressure chronic ulcer of other part of unspecified foot with unspecified severity; N40.0 Benign prostatic hyperplasia without lower urinary tract symptoms; W19.XXXA Unspecified fall, initial encounter; Z79.899 Other long term (current) drug therapy; Z87.442 Personal history of urinary calculi; Z95.5 Presence of coronary angioplasty implant and graft; Z96.642 Presence of left artificial hip joint; Z96.659 Presence of unspecified artificial knee joint; Z68.21 Body mass index [BMI] 21.0-21.9, adult; T79.6XXA Traumatic ischemia of muscle, initial encounter
CPT/HCPCS: 70450; 71046; 72125; 73030; 73060; 73070; 73110; 73120; 73130; 73200; 73502; 80048; 80053; 80061; 80306; 80307; 81003; 81015; 82077; 82550; 82607; 82728; 82746; 83540; 83550; 83605; 83735; 84443; 84484; 85018; 85025; 85027; 85045; 85610; 85730; 87040; 87086; 87502; 87811; 93005; 93306; 93971; 94761; 97110; 97116; 97163; 97167; 97530; 97535; J2916; Q9950

== ENCOUNTER 2025-04-05 05:59 | Emergency (ER) | payer MEDICARE, OTHER, SELFPAY ==
[2025-04-05 06:16] VITALS: BP 113/57
--- NOTE | 2025-04-05 06:28 | ED.GENMED ---
History of Present Illness
General
Chief Complaint: Skin Problem
Time Seen by Provider: 04/05/25 06:26
History of Present Illness
History of Present Illness:
TIME OF INITIAL EVALUATION
- 6:30 AM
REVIEW OF OLD RECORDS
- The patient has a history of COPD, CAD, high blood pressure and also has history of alcohol/substance abuse. I reviewed the discharge summary from the last hospitalization in which the patient had T wave inversion and elevated troponins with
cardiac stress testing was refused by the patient. He apparently has been going to thrive after the of his a few months ago. He had been on Seroquel and Zoloft he left the hospital AMA on 03/19/2025. The notes indicate that he has a left
foot wound.
Note:
CHIEF COMPLAINT(S)
Large blister on heel with associated redness and swelling.
HISTORY OF PRESENT ILLNESS
The patient is a 69-year-old male who presents with a large blister on his heel, which developed several months ago. The patient described the blister as being significant in size and noted that it inadvertently popped when he applied a dressing and
a shoe. He reports increased redness and swelling in the area, which has worsened over the past few days. The patient expressed concern about the size and redness of the affected area. The patient consulted with the nurse at the [facility] [place], who
suggested the possibility of needing intravenous antibiotics. However, the patient has not been on any antibiotics yet for this condition. The patient is currently disabled, which limits his mobility and shoe usage, suggesting the blister might not
be due to consistent pressure from footwear.
SOCIAL DETERMINANTS AFFECTING HEALTH
The patient is on disability, which limits mobility and could impact access to frequent in-person medical evaluations or interventions.
PHYSICAL EXAM
General: Alert, no acute distress.
Skin: There is some granulation tissue at a recently unroofed blister to the posterior aspect of the left heel with mild erythema noted in the area superior to the heel wound. He has palpable DP and PT left
Cardiovascular: Normal peripheral perfusion, no edema.
Respiratory: Respirations are non-labored.
Neurological: Alert and oriented to person, place, time, and situation.
PLAN
1. Administer a dose of oral antibiotics in the facility and prescribe a course of antibiotics to be picked up at the patients designated pharmacy, [facility] on [facility].
2. Provide contact information for Dr. Spaulding, a ear specialist, and advise the patient to schedule a follow-up appointment for further management of the heel wound.
3. Place a new dressing on the affected area to protect the wound and facilitate healing.
DIFFERENTIAL DIAGNOSIS
The Differential Diagnosis includes, in no particular order and is not limited to:
1. Cellulitis
2. Infected blister
3. Pressure ulcer
4. Diabetic foot ulcer
5. Venous stasis dermatitis
6. Contact dermatitis
7. Abscess
8. Lymphedema
9. Peripheral vascular disease
10. Erysipelas
UPDATE
-SUMMARY OF ENCOUNTER
The patient, a 69-year-old male, presented to the emergency department with a large blister on his heel that had developed several months ago. The blister recently popped, leading to increased redness and swelling. A nurse at the [facility] recommended
intravenous antibiotics, but the patient had not commenced any antibiotic treatment prior to this visit. Upon examination, the patient appeared afebrile and in no acute distress. Taking into account his age and current state, it was decided to
administer a dose of oral antibiotics rather than initiate IV therapy. Contact information for Dr. Spaulding, a ear specialist, was provided to the patient for follow-up care management.
PLAN
1. 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
2. Advise the patient to follow up with Dr. Spaulding, a ear specialist, for further management of the heel wound.
3. Apply a new dressing to the affected area to promote healing.
FOLLOW-UP INSTRUCTIONS
The patient is advised to schedule a follow-up appointment with Dr. Linda, a ear specialist, as soon as possible for management of the heel wound.
MEDICATION RECONCILIATION
1. A dose of oral antibiotics was administered in the emergency department.
2. A prescription for a course of oral antibiotics has been provided for the patient to fill at their designated pharmacy.
MEDICAL DECISION MAKING
- Complexity of Data Reviewed: Chronic conditions affecting care include the patients disability, which limits mobility. Differential diagnosis includes cellulitis, infected blister, pressure ulcer, diabetic foot ulcer, venous stasis dermatitis,
contact dermatitis, abscess, lymphedema, peripheral vascular disease, erysipelas.
- Risk: Prescription medication was prescribed in the form of oral antibiotics.
DIAGNOSIS
1. Infected blister with redness and swelling (L02.612).
Past History
Past History
ED Past Medical History: CAD, COPD, HTN, Hypercholesterolemia, Other (Monoclonal gammopathy) and Other (History of myocarditis, history of herniated disc in the neck history of kidney stones, history of problems with urination due to prostatic
hypertrophy, history of alcohol abuse, history of bipolar disorder, history of depression, history of substance abuse)
ED Past Surgical History: Orthopedic (The patient had total knee replacement 6 years ago, he had a left hip replaced 6 years ago, and screws and plate in the next 5-6 years ago.) and Other (He apparently also had several cardiac stents placed.)
Patient has exhibited threatening behavior?: Yes
Date of threatening behavior? (updated with each occurrence): 05/31/20
Social History
Tobacco: Smoker
Alcohol: Chronic alcoholic
Drug: Other
Personal:
Living: with family
Employment: Disabled
Family History
Family History: Other (reviewed and noncontributory)
Phy Exam
Physical Exam
Physical Exam:
See HPI
Course
Orders/Labs/Results
Orders:
Orders
04/05/25 06:39
Cephalexin Monohydrate [Keflex] 500 mg PO NOW STA
Vital Signs
Initial and Last Documented VS:
Initial Vital Signs
Temp Pulse Resp BP Pulse Ox
36.9 C 101 16 113/57 100
04/05/25 06:16 04/05/25 06:16 04/05/25 06:16 04/05/25 06:16 04/05/25 06:16
Last Documented Vital Signs
Temp Pulse Resp BP Pulse Ox
36.9 C 101 16 113/57 100
04/05/25 06:16 04/05/25 06:16 04/05/25 06:16 04/05/25 06:16 04/05/25 06:33
*Pulse Oximetry
SaO2: 100
Oxygen Mode of Delivery: Room air
Patient hypoxic: no
*Critical Care Note
Total Time (30-74mins, 75-104mins- exclusive of procedures): Not Applicable
ED Attending Note
-
Portions of this chart may have been created with voice recognition software.� Occasional wrong word or��sound alike� substitutions may have occurred due to the inherent limitations of voice recognition software.
Discharge Plan
Departure
Patient Disposition: Home (Routine Discharge)
Date of Disposition: 04/05/25
Time of Disposition: 06:39
Patient with high blood pressure during this ER visit?: Yes
Discharge Problem:
Cellulitis
Instructions: Cellulitis (Skin Infection), Adult (DC)
Prescriptions:
New
cephalexin 500 mg tablet
500 mg PO TID 7 Days Qty: 21 0RF
No Action
albuterol sulfate 1 PUFF HFA aerosol inhaler
1 puff inhalation R Q4HPRN PRN (Reason: sob or wheezing) Qty: 1 0RF
pantoprazole [Protonix] 40 mg Tablet,Delayed Release (Dr/Ec)
40 mg PO BID
cyclobenzaprine 10 mg Tablet
10 mg PO HSPRN PRN (Reason: spasms)
nicotine 21 mg/24 hr Patch 24 Hour
1 patch TRANSDERMAL DAILY
diclofenac sodium 1 % Gel
0 g TOPICAL DAILYPRN PRN (Reason: areas of pain)
famotidine 20 MG tablet
20 mg PO HS
atorvastatin 40 mg Tablet
40 mg PO QPM 30 Days Qty: 30 0RF
gabapentin 400 mg Capsule
1,200 mg PO HS 30 Days Qty: 90 0RF
amlodipine 2.5 mg Tablet
2.5 mg PO DAILY 30 Days Qty: 30 0RF
quetiapine [Seroquel] 300 mg Tablet
300 mg PO HS 30 Days Qty: 30 0RF
sertraline 100 mg Tablet
100 mg PO HS Qty: 30 0RF
aspirin 81 mg Tablet,Delayed Release (Dr/Ec)
81 mg PO DAILY 30 Days Qty: 30 0RF
ferrous sulfate 325 mg (65 mg iron) Tablet
325 mg PO Q48H 30 Days Qty: 30 0RF
Referrals:
Rhys Spaulding MD [Active, Plastic Surgery]
UNKNOWN - PT DOES,NOT KNOW [Family Provider]
Activity Restrictions/Additional Instructions:
I have given the contact information for Dr. Spaulding, ear specialist. I recommend that you call his office to make an appointment for further evaluation of the wound at the left heel. I can feel good blood flow into the left foot. I am
sending a prescription to the [facility] at [address] for antibiotics. Return here if worse or other concerns or also [facility]
Interventions
Interventions:
*Risk Screen - Suicide Last Done: 04/05/25 06:16
*Neglect/Abuse Screening Last Done: 04/05/25 06:16
*ED- Fall Risk Assessment Last Done: 04/05/25 06:16
*ED COVID-19 Vaccine History Last Done: 04/05/25 06:16
Discharge Date and Time
Print Language: [place]
[2025-04-05] MEDS: KEFLEX 500 MG PO (06:50)
[2025-04-05 06:51] VITALS: BMI 20.5
== END 2025-04-05 07:05 | disposition home or self-care (01) ==
LOC: EMR 05:59
PROVIDERS: EMERGENCY PHYSICIAN Emergency Medicine
DX: L03.116 Cellulitis of left lower limb (principal); E78.00 Pure hypercholesterolemia, unspecified; I10 Essential (primary) hypertension; I25.10 Atherosclerotic heart disease of native coronary artery without angina pectoris; J44.9 Chronic obstructive pulmonary disease, unspecified; Z95.5 Presence of coronary angioplasty implant and graft; F17.200 Nicotine dependence, unspecified, uncomplicated
CPT/HCPCS: 99283

== ENCOUNTER → 2025-04-12 12:30 | Outpatient (REF) | payer MEDICARE, OTHER, SELFPAY | LOC: WOUND 12:30 | PROVIDERS: ATTENDING PHYSICIAN Surgery; FAMILY PHYSICIAN Emergency Medicine | DX: L89.153 Pressure ulcer of sacral region, stage 3 (principal); L89.620 Pressure ulcer of left heel, unstageable; I73.9 Peripheral vascular disease, unspecified; F10.10 Alcohol abuse, uncomplicated; Z72.0 Tobacco use | CPT/HCPCS: 73650; 99204 ==

== ENCOUNTER → 2025-04-19 12:32 | Outpatient (REF) | payer OTHER, SELFPAY | LOC: WOUND 12:32 | PROVIDERS: ATTENDING PHYSICIAN Surgery; FAMILY PHYSICIAN Emergency Medicine | DX: L89.153 Pressure ulcer of sacral region, stage 3 (principal); L89.620 Pressure ulcer of left heel, unstageable; I73.9 Peripheral vascular disease, unspecified; F10.10 Alcohol abuse, uncomplicated; Z72.0 Tobacco use | CPT/HCPCS: 99213 ==

== ENCOUNTER 2025-04-24 07:38 | Emergency (ER) | payer OTHER, SELFPAY ==
[2025-04-24 07:48] VITALS: BP 101/65
--- NOTE | 2025-04-24 10:55 | ED.GENMED ---
History of Present Illness
General
Chief Complaint: Musculo-Skeletal Complaint
Source: patient
Exam Limitations: none
Time Seen by Provider: 04/24/25 10:22
History of Present Illness
History of Present Illness:
Patient fell on his arm months ago. Since then has been not been able to extend his fingers. No other injury or complaint.
Past History
Past History
ED Past Medical History: CAD, COPD, HTN, Hypercholesterolemia, Other (Monoclonal gammopathy) and Other (History of myocarditis, history of herniated disc in the neck history of kidney stones, history of problems with urination due to prostatic
hypertrophy, history of alcohol abuse, history of bipolar disorder, history of depression, history of substance abuse)
ED Past Surgical History: Orthopedic (The patient had total knee replacement 6 years ago, he had a left hip replaced 6 years ago, and screws and plate in the next 5-6 years ago.) and Other (He apparently also had several cardiac stents placed.)
Patient has exhibited threatening behavior?: Yes
Date of threatening behavior? (updated with each occurrence): 05/31/20
Social History
Tobacco: Smoker
Alcohol: Chronic alcoholic
Drug: Other
Personal:
Living: with family
Employment: Disabled
Family History
Family History: Other (reviewed and noncontributory)
Review of Systems
Review of Systems
All Other Systems: Not applicable
Phy Exam
Physical Exam
Physical Exam:
General: Nontoxic appearing in no distress
Skin: Warm and dry, no rash
Neuro: Alert, nontoxic, grossly nonfocal
Psychiatric: Good eye contact and appropriate
Musculoskeletal: Good distal pulse and color to the right hand. Capillary refill within normal limits. Decreased extension of all digits including the thumb. Decreased interosseous. Wrist and finger flexion intact. Biceps triceps intact.
Course
Orders/Labs/Results
Orders:
Orders
04/24/25 07:53
Hand, Right 3 View [CR Hand - Right Min 3 Views] Urgent
Comment:
Reason For Exam: pain, decreased ROM
04/24/25 10:52
Physical Therapy Consult [Pt Eval And Treat] Urgent
Treatment: Splint/rehab for nerve palsy
Activity Level: As Tolerated
04/24/25 13:03
Acetaminophen [Tylenol] 650 mg PO NOW STA
Vital Signs
Initial and Last Documented VS:
Initial Vital Signs
Temp Pulse Resp BP Pulse Ox
97.6 F 90 22 101/65 92
04/24/25 07:48 04/24/25 07:48 04/24/25 07:48 04/24/25 07:48 04/24/25 07:48
Last Documented Vital Signs
Temp Pulse Resp BP Pulse Ox
97.6 F 90 22 101/65 92
04/24/25 07:48 04/24/25 07:48 04/24/25 07:48 04/24/25 07:48 04/24/25 10:57
MDM/Problems Addressed
Differential Diagnosis Includes:
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 Will ask physical therapy to splint and give rehab follow-up with hand surgery
*Radiology
Radiology exam reviewed: preliminary read by ED provider (Degenerative changes first carpometacarpal joint. Small chip fracture first MCP joint. All appear old)
*Pulse Oximetry
SaO2: 92
Oxygen Mode of Delivery: Room air
Patient hypoxic: no (92)
*Critical Care Note
Total Time (30-74mins, 75-104mins- exclusive of procedures): Not Applicable
Update Note
Update Note:
Discussed with physical therapy. They recommend outpatient therapy for hand therapy. Also will have him referred to the hand orthopedist. Will hold on splint for now for driving reasons
ED Attending Note
-
Portions of this chart may have been created with voice recognition software.� Occasional wrong word or��sound alike� substitutions may have occurred due to the inherent limitations of voice recognition software.
Discharge Plan
Departure
Patient Disposition: Home (Routine Discharge)
Date of Disposition: 04/24/25
Time of Disposition: 12:53
Patient with high blood pressure during this ER visit?: Yes
Discharge Problem:
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
Instructions: Radial Nerve Entrapment (DC), BLOOD PRESSURE
Prescriptions:
No Action
albuterol sulfate 1 PUFF HFA aerosol inhaler
1 puff inhalation R Q4HPRN PRN (Reason: sob or wheezing) Qty: 1 0RF
pantoprazole [Protonix] 40 mg Tablet,Delayed Release (Dr/Ec)
40 mg PO BID
cyclobenzaprine 10 mg Tablet
10 mg PO HSPRN PRN (Reason: spasms)
nicotine 21 mg/24 hr Patch 24 Hour
1 patch TRANSDERMAL DAILY
diclofenac sodium 1 % Gel
0 g TOPICAL DAILYPRN PRN (Reason: areas of pain)
famotidine 20 MG tablet
20 mg PO HS
atorvastatin 40 mg Tablet
40 mg PO QPM 30 Days Qty: 30 0RF
gabapentin 400 mg Capsule
1,200 mg PO HS 30 Days Qty: 90 0RF
amlodipine 2.5 mg Tablet
2.5 mg PO DAILY 30 Days Qty: 30 0RF
quetiapine [Seroquel] 300 mg Tablet
300 mg PO HS 30 Days Qty: 30 0RF
sertraline 100 mg Tablet
100 mg PO HS Qty: 30 0RF
aspirin 81 mg Tablet,Delayed Release (Dr/Ec)
81 mg PO DAILY 30 Days Qty: 30 0RF
ferrous sulfate 325 mg (65 mg iron) Tablet
325 mg PO Q48H 30 Days Qty: 30 0RF
cephalexin 500 mg tablet
500 mg PO TID 7 Days Qty: 21 0RF
Referrals:
Mack Tolliver MD [Active, Orthopedics] - Follow up in 5-7 days
UNKNOWN - PT DOES,NOT KNOW [Family Provider]
Activity Restrictions/Additional Instructions:
Call the outpatient OT for hand therapy. [phone]
Also follow-up with a hand orthopedist
Try to do stretching exercises to keep mobility of the hand
Also follow-up closely with your primary physician
Interventions
Interventions:
*Risk Screen - Suicide Last Done: 04/24/25 07:49
*General Assessment Last Done: 04/24/25 07:49
*Neglect/Abuse Screening Last Done: 04/24/25 07:49
*ED- Fall Risk Assessment Last Done: 04/24/25 13:16
*ED COVID-19 Vaccine History Last Done: 04/24/25 13:16
*Nursing Disposition Last Done: 04/24/25 13:16
ED-Musculoskeletal Assessment Last Done: 04/24/25 13:16
Discharge Date and Time
Discharge Date/Time: 04/24/25 13:17
Print Language: FINNISH
[2025-04-24] MEDS: TYLENOL 650 MG PO (13:06)
== END 2025-04-24 13:17 | disposition home or self-care (01) ==
LOC: EMR 07:38
PROVIDERS: EMERGENCY PHYSICIAN Emergency Medicine
DX: S69.91XA Unspecified injury of right wrist, hand and finger(s), initial encounter (principal); I25.10 Atherosclerotic heart disease of native coronary artery without angina pectoris; I10 Essential (primary) hypertension; E78.00 Pure hypercholesterolemia, unspecified; J44.9 Chronic obstructive pulmonary disease, unspecified; N40.0 Benign prostatic hyperplasia without lower urinary tract symptoms; F31.9 Bipolar disorder, unspecified; M50.20 Other cervical disc displacement, unspecified cervical region; F17.200 Nicotine dependence, unspecified, uncomplicated; Z95.5 Presence of coronary angioplasty implant and graft; Z79.82 Long term (current) use of aspirin; Z96.642 Presence of left artificial hip joint; Z96.659 Presence of unspecified artificial knee joint; W19.XXXA Unspecified fall, initial encounter
CPT/HCPCS: 99283; 73130

== ENCOUNTER → 2025-04-27 11:05 | Outpatient (REF) | payer OTHER, SELFPAY | LOC: WOUND 11:05 | PROVIDERS: ATTENDING PHYSICIAN Surgery; FAMILY PHYSICIAN Psychiatry & Neurology Neurology | DX: L89.623 Pressure ulcer of left heel, stage 3 (principal); I73.9 Peripheral vascular disease, unspecified; L89.620 Pressure ulcer of left heel, unstageable; Z72.0 Tobacco use; F10.10 Alcohol abuse, uncomplicated | CPT/HCPCS: 11042 ==

== ENCOUNTER 2025-05-01 01:16 | Emergency (ER) | payer OTHER, SELFPAY ==
[2025-05-01 02:49] VITALS: BMI 21.3
[2025-05-01 03:22] VITALS: BP 138/62
[2025-05-01 04:00] VITALS: BP 106/33
--- NOTE | 2025-05-01 04:33 | ED.GENMED ---
History of Present Illness
General
Chief Complaint: Skin Problem
Source: patient
Exam Limitations: none
Time Seen by Provider: 05/01/25 04:32
Nursing documentation reviewed up to this point in time: agreed with
History of Present Illness
History of Present Illness:
Note:
CHIEF COMPLAINT(S)
Wound on the foot causing significant pain.
HISTORY OF PRESENT ILLNESS
The patient, a 69-year-old male with pmh of COPD, CAD, GERD, HTN, presents with a chronic wound on his foot that has been causing increasing pain over time. He reports that the pain started following bumping his foot the past week and the pain has
progressively worsened. Originally, wound started a few months ago as a result of pressure ulcer. He expresses frustration with previous visits, noting inadequate attention during those encounters and feels like not much was done for his wound. The
patient denies experiencing fever but reports the presence of drainage and an odor at times coming from the wound. Patient reports that he has never gotten an x-ray or seen a anesthesiologist and critical care for this wound. The patient is under the care of Dr. Linda,
a agricultural systems specialist, who patient saw a few days ago for this issue and who reportedly did not express concern about active infection and gave patient instructions on wound dressing. The patient is able to ambulate but with a lot pain. He denies
redness spreading up the foot or up the leg. He denies loss of sensation in the foot or lower extremity. He denies any other wounds or any other injuries.
PAST MEDICAL AND SURGICAL HISTORY
The patient has been treated previously for the foot wound but details about specific past medical or surgical events were not included in the conversation.
SOCIAL DETERMINANTS AFFECTING HEALTH
The conversation suggests potential barriers to care due to the patients frustration with previous treatment encounters, possibly affecting his adherence and trust in medical management.
REVIEW OF SYSTEMS
- General: No fever reported.
- Musculoskeletal: Significant pain in the affected foot.
- Integumentary: Wound on the foot, noted to have drainage and a foul odor.
PHYSICAL EXAM
General: Alert, no acute distress.
Skin: Grayish blue discoloration of skin noted as a result of colloidal silver use. Ulcer noted to left heel with minimal purulent drainage and surrounding erythema
Head: Normocephalic, atraumatic.
Neck: Supple, trachea midline.
Eye, Ears, Nose, Mouth, and Throat: Oral mucosa moist.
Cardiovascular: Normal peripheral perfusion, no edema.
2+ DP and PT pulses bilaterally
Respiratory: Respirations are non-labored.
Musculoskeletal: Full range of motion of left foot and left lower extremity
Neurological: Alert and oriented to person, place, time, and situation, no focal neurological deficit observed.
Psychiatric: Cooperative, appropriate mood & affect.
PLAN
1. Order blood work
2. Obtain an X-ray of the foot to assess for bony degenerative changes
3. Evaluate the need for antibiotics based on the severity and assessment of the wound.
4. Culture drainage from wound
DIFFERENTIAL DIAGNOSIS
The Differential Diagnosis includes, in no particular order and is not limited to:
1. Diabetic Foot Ulcer
2. Chronic Venous Insufficiency
3. Peripheral Artery Disease
4. Osteomyelitis
5. Cellulitis
6. Venous Stasis Ulcer
7. Pyogenic Granuloma
8. Neuropathic Ulcer
9. Pressure Ulcer
10. Cutaneous Abscess
CHART REVIEW
-reviewed discharge summary from 03/20/25 patient seen for failure to thrive left AMA
-reviewed ER physician documentation from 04/05/25
MDM/DISPOSITION
The patient, a 69-year-old male with pmh of COPD, CAD, GERD, HTN, presents with a chronic wound on his foot that has been causing increasing pain over time. He reports that the pain started following bumping his foot the past week and the pain has
progressively worsened. His wound is managed by Dr. Spaulding who patient saw in office a few days prior. On exam, patient is afebile and has an ulcer noted to his left heel. With Q tip I did culture the minimal purulent drainage. I am not able to
probe deeper into the wound. His sensation is intact and his limb is warm and well perfused. CBC shows stable anemia. No leukocytosis. CMP unremarkable. ESR elevated however CRP normal. X-ray unremarkable. Doubt osteoarthritis. Suspect mild
infection of chronic wound. Will initiate keflex and place new dressing, discussed strict return precautions.
Past History
Past History
ED Past Medical History: CAD, COPD, HTN, Hypercholesterolemia, Other (Monoclonal gammopathy) and Other (History of myocarditis, history of herniated disc in the neck history of kidney stones, history of problems with urination due to prostatic
hypertrophy, history of alcohol abuse, history of bipolar disorder, history of depression, history of substance abuse)
ED Past Surgical History: Orthopedic (The patient had total knee replacement 6 years ago, he had a left hip replaced 6 years ago, and screws and plate in the next 5-6 years ago.) and Other (He apparently also had several cardiac stents placed.)
Patient has exhibited threatening behavior?: Yes
Date of threatening behavior? (updated with each occurrence): 05/31/20
Social History
Tobacco: Smoker
Alcohol: Chronic alcoholic
Drug: Other
Personal:
Living: with family
Employment: Disabled
Family History
Family History: Other (reviewed and noncontributory)
Review of Systems
Review of Systems
All Other Systems: ROS reviewed and negative except as documented in HPI and ROS
Phy Exam
Physical Exam
Physical Exam:
see hpi
Course
Orders/Labs/Results
Orders:
Orders
05/01/25 04:47
CR Foot - Left 2 Views Urgent
Comment:
Reason For Exam: left heel pain
05/01/25 05:13
CRP [C-Reactive Protein] Urgent
Comprehensive Metabolic Panel Urgent
05/01/25 05:14
Complete Blood Count/With Diff Urgent
ESR [Erythrocyte Sed Rate] Urgent
Ibuprofen [Motrin] 600 mg PO NOW STA
05/01/25 05:16
Wound Culture [Wound/Abscess/Other Culture] Urgent
GEORGE Source: Ulcer
Specimen Description:
Date Specimen was Collected: 05/01/25
Time Specimen was Collected: 05:16
Abnormal Lab Results
05/01/25 05/01/25
05:13 05:14
WBC 4.0 L 10^3/uL
(4.8-10.8)
RBC 2.55 L 10^6/uL
(4.70-6.10)
Hgb 8.3 L g/dL
(13.0-18.0)
Hct 25.9 L %
(39.0-52.0)
MCV 101.6 H fL
(80.0-94.0)
MCH 32.5 H pg
(27.0-31.0)
MCHC 32.0 L g/dL
(33.0-37.0)
RDW 17.0 H %
(11.5-14.5)
Absolute Lymphs (auto) 1.1 L 10^3/uL
(1.2-3.4)
Immature Gran % 1.0 H %
(0-0.5)
Monocytes % 10.0 H %
(1.7-9.3)
ESR 55 H mm/hour
(0-20)
Chloride 113 H mmol/L
(98-107)
BUN 22 H mg/dl
(9-20)
Creatinine 0.6 L mg/dL
(0.7-1.3)
AST 14 L U/L
(17-59)
Total Protein 5.6 L g/dl
(6.3-8.2)
Albumin 3.3 L g/dl
(3.5-5.0)
05/01/25 05:14
05/01/25 05:13
Vital Signs
Initial and Last Documented VS:
Initial Vital Signs
Temp Pulse Resp Pulse Ox
98.5 F 96 18 99
05/01/25 01:21 05/01/25 01:21 05/01/25 01:21 05/01/25 01:21
Last Documented Vital Signs
Temp Pulse Resp BP Pulse Ox
98.5 F 72 18 128/76 97
05/01/25 01:21 05/01/25 07:00 05/01/25 07:00 05/01/25 07:00 05/01/25 07:00
*Pulse Oximetry
SaO2: 98
Oxygen Mode of Delivery: Room air
Patient hypoxic: no
*Critical Care Note
Total Time (30-74mins, 75-104mins- exclusive of procedures): Not Applicable
ED Attending Note
-
Portions of this chart may have been created with voice recognition software.� Occasional wrong word or��sound alike� substitutions may have occurred due to the inherent limitations of voice recognition software.
Discharge Plan
Departure
Patient Disposition: Home (Routine Discharge)
Date of Disposition: 05/01/25
Time of Disposition: 06:52
Patient with high blood pressure during this ER visit?: Yes
Condition: Good
Discharge Problem:
Infected pressure ulcer
Instructions: Pressure sores, Cellulitis (skin infection) in adults - Discharge instructions
Prescriptions:
New
cephalexin 500 mg capsule
500 mg PO QID 7 Days Qty: 28 0RF
No Action
albuterol sulfate 1 PUFF HFA aerosol inhaler
1 puff inhalation R Q4HPRN PRN (Reason: sob or wheezing) Qty: 1 0RF
pantoprazole [Protonix] 40 mg Tablet,Delayed Release (Dr/Ec)
40 mg PO BID
cyclobenzaprine 10 mg Tablet
10 mg PO HSPRN PRN (Reason: spasms)
nicotine 21 mg/24 hr Patch 24 Hour
1 patch TRANSDERMAL DAILY
diclofenac sodium 1 % Gel
0 g TOPICAL DAILYPRN PRN (Reason: areas of pain)
famotidine 20 MG tablet
20 mg PO HS
atorvastatin 40 mg Tablet
40 mg PO QPM 30 Days Qty: 30 0RF
gabapentin 400 mg Capsule
1,200 mg PO HS 30 Days Qty: 90 0RF
amlodipine 2.5 mg Tablet
2.5 mg PO DAILY 30 Days Qty: 30 0RF
quetiapine [Seroquel] 300 mg Tablet
300 mg PO HS 30 Days Qty: 30 0RF
sertraline 100 mg Tablet
100 mg PO HS Qty: 30 0RF
aspirin 81 mg Tablet,Delayed Release (Dr/Ec)
81 mg PO DAILY 30 Days Qty: 30 0RF
ferrous sulfate 325 mg (65 mg iron) Tablet
325 mg PO Q48H 30 Days Qty: 30 0RF
cephalexin 500 mg tablet
500 mg PO TID 7 Days Qty: 21 0RF
Referrals:
Ana Nina DPM [Non-Admitting Privileges, Podiatry] - Call in 1-3 days for appt
UNKNOWN - PT DOES,NOT KNOW [Family Provider]
Activity Restrictions/Additional Instructions:
Lutherflex has been sent to her pharmacy. Please take 1 tablet 4 times daily for 7 days. Please follow-up with your agricultural systems specialist. Please call attached number to schedule an evaluation with podiatry.
Please change dressing once daily.
PLEASE RETURN EMERGENCY DEPARTMENT SHOULD YOU DEVELOP INABILITY AMBULATE, FEVERS OR CHILLS, INCREASING SURROUNDING REDNESS TO YOUR WOUND SPREADING AROUND THE FOOT, CHEST PAIN, SHORTNESS OF BREATH, OR ANY OTHER SIGNS OR SYMPTOMS WORRISOME TO YOU
Interventions
Interventions:
*Risk Screen - Suicide Last Done: 05/01/25 01:26
*General Assessment Last Done: 05/01/25 02:49
*Neglect/Abuse Screening Last Done: 05/01/25 02:49
*ED- Fall Risk Assessment Last Done: 05/01/25 02:49
*ED COVID-19 Vaccine History Last Done: 05/01/25 02:49
*Nursing Disposition Last Done: 05/01/25 07:02
ED-Skin Assessment Last Done: 05/01/25 03:14
Discharge Date and Time
Discharge Date/Time: 05/01/25 07:02
Print Language: IRISH
[2025-05-01 05:15] VITALS: BP 114/61
[2025-05-01 05:44] LABS: ALT (SGPT) < 10 U/L (0-50); AST (SGOT) 14 U/L (17-59); Albumin 3.3 g/dl (3.5-5.0); Alkaline Phosphatase 69 U/L (38-126); Blood Urea Nitrogen 22 mg/dl (9-20); Calcium 8.6 mg/dl (8.4-10.2); Carbon Dioxide 24 mmol/L (22-30); Chloride 113 mmol/L (98-107); Estimated Creatinine Clearance 115 ml/min; Glucose 89 mg/dl (70-99); Potassium 3.9 mmol/L (3.5-5.1); Sodium 140 mmol/L (135-145); Total Protein 5.6 g/dl (6.3-8.2); eGFR > 60.00
[2025-05-01 05:44] LABS: Hematocrit 25.9 % (39.0-52.0); Hemoglobin 8.3 g/dL (13.0-18.0); Mean Corp Hgb Conc. 32.0 g/dL (33.0-37.0); Mean Corpuscular Volume 101.6 fL (80.0-94.0); Nucleated Red Blood Cells % 0 % (-); Platelet Count 177 10^3/uL (130-400); Red Cell Dist. Width 17.0 % (11.5-14.5)
[2025-05-01 05:48] LABS: C-Reactive Protein < 5.00 mg/L (0.0-10.00)
[2025-05-01 06:00] VITALS: BP 120/52
[2025-05-01 07:00] VITALS: BP 128/76
== END 2025-05-01 07:02 | disposition home or self-care (01) ==
LOC: EMR 01:16
PROVIDERS: Physician Assistant; EMERGENCY PHYSICIAN Emergency Medicine
DX: L89.629 Pressure ulcer of left heel, unspecified stage (principal); I10 Essential (primary) hypertension; J44.9 Chronic obstructive pulmonary disease, unspecified; I25.10 Atherosclerotic heart disease of native coronary artery without angina pectoris; E78.00 Pure hypercholesterolemia, unspecified; N40.0 Benign prostatic hyperplasia without lower urinary tract symptoms; F17.200 Nicotine dependence, unspecified, uncomplicated; Z95.5 Presence of coronary angioplasty implant and graft
CPT/HCPCS: 99284; 73620; 80053; 85025; 85652; 86140; 87070; 87077; 87147; 87205

== ENCOUNTER → 2025-05-08 10:20 | Outpatient (REF) | payer OTHER, SELFPAY | LOC: WOUND 10:20 | PROVIDERS: ATTENDING PHYSICIAN Surgery | DX: L89.623 Pressure ulcer of left heel, stage 3 (principal); L89.620 Pressure ulcer of left heel, unstageable; I73.9 Peripheral vascular disease, unspecified; F10.10 Alcohol abuse, uncomplicated; Z72.0 Tobacco use | CPT/HCPCS: 11042 ==

== ENCOUNTER → 2025-05-16 08:09 | Outpatient (REF) | payer OTHER, SELFPAY | LOC: DHVS 08:09 | PROVIDERS: ATTENDING PHYSICIAN Surgery | DX: L89.153 Pressure ulcer of sacral region, stage 3 (principal); L89.620 Pressure ulcer of left heel, unstageable; I73.9 Peripheral vascular disease, unspecified; Z72.0 Tobacco use | CPT/HCPCS: 93922 ==

== ENCOUNTER → 2025-05-28 09:38 | Outpatient (REF) | payer OTHER, SELFPAY | LOC: WOUND 09:38 | PROVIDERS: ATTENDING PHYSICIAN Surgery | DX: L89.623 Pressure ulcer of left heel, stage 3 (principal); L89.152 Pressure ulcer of sacral region, stage 2; I73.9 Peripheral vascular disease, unspecified; F10.10 Alcohol abuse, uncomplicated; Z72.0 Tobacco use | CPT/HCPCS: 11042 ==

== ENCOUNTER → 2025-05-28 10:17 | Outpatient (REF) | payer OTHER, SELFPAY | LOC: EMG 10:17 | PROVIDERS: ATTENDING PHYSICIAN Orthopaedic Surgery | DX: R20.0 Anesthesia of skin (principal) | CPT/HCPCS: 95886; 95911 ==

== ENCOUNTER → 2025-06-15 08:29 | Outpatient (REF) | payer OTHER, SELFPAY | LOC: WOUND 08:29 | PROVIDERS: ATTENDING PHYSICIAN Surgery; FAMILY PHYSICIAN Internal Medicine | DX: L89.623 Pressure ulcer of left heel, stage 3 (principal); L89.152 Pressure ulcer of sacral region, stage 2; I73.9 Peripheral vascular disease, unspecified; F10.10 Alcohol abuse, uncomplicated; Z72.0 Tobacco use | CPT/HCPCS: 11042 ==

== ENCOUNTER → 2025-06-22 11:21 | Outpatient (REF) | payer OTHER, SELFPAY | LOC: WOUND 11:21 | PROVIDERS: ATTENDING PHYSICIAN Surgery | DX: L89.623 Pressure ulcer of left heel, stage 3 (principal); L89.152 Pressure ulcer of sacral region, stage 2; I73.9 Peripheral vascular disease, unspecified; Z72.0 Tobacco use; F10.10 Alcohol abuse, uncomplicated | CPT/HCPCS: 99213 ==

== ENCOUNTER → 2025-06-29 10:57 | Outpatient (REF) | payer OTHER, SELFPAY | LOC: WOUND 10:57 | PROVIDERS: ATTENDING PHYSICIAN Surgery; FAMILY PHYSICIAN Internal Medicine | DX: L89.623 Pressure ulcer of left heel, stage 3 (principal); I73.9 Peripheral vascular disease, unspecified; Z72.0 Tobacco use; F10.10 Alcohol abuse, uncomplicated | CPT/HCPCS: 11042 ==

== ENCOUNTER → 2025-07-12 11:05 | Outpatient (REF) | payer OTHER, SELFPAY | LOC: WOUND 11:05 | PROVIDERS: ATTENDING PHYSICIAN Surgery; FAMILY PHYSICIAN Internal Medicine | DX: L89.623 Pressure ulcer of left heel, stage 3 (principal); I73.9 Peripheral vascular disease, unspecified; F10.10 Alcohol abuse, uncomplicated; Z72.0 Tobacco use | CPT/HCPCS: 11042 ==

== ENCOUNTER 2025-07-14 02:09 | Emergency (ER) | payer OTHER, SELFPAY ==
[2025-07-14 02:19] VITALS: BP 93/60
[2025-07-14 03:38] VITALS: BP 153/64
--- NOTE | 2025-07-14 03:43 | ED.GENMED ---
History of Present Illness
General
Chief Complaint: Anxiety
Source: patient, records and ambulance crew
Exam Limitations: none
Time Seen by Provider: 07/14/25 03:41
Nursing documentation reviewed up to this point in time: agreed with
History of Present Illness
History of Present Illness:
70-year-old male with a past medical history of COPD, hypertension, hyperlipidemia, CAD, alcohol abuse, GERD who presents to the ER from home via EMS for evaluation of shortness of breath and 'panic.' Patient reports onset of symptoms at 9 PM and
have been constant since that time. He says he was watching TV and began to feel very anxious and short of breath. He says that this is consistent with prior panic attacks that he has had most recently 4 months ago. Called EMS who brought him to
the ER for assessment. He denies any chest pain. He denies any recent illness such as fever, cough, URI symptoms. He has not noticed any swelling in the legs. Denies any other acute issues. Of note he has blue-bennett tint to his skin from prior
colloidal silver use.
Past History
Past History
ED Past Medical History: CAD, COPD, HTN, Hypercholesterolemia, Other (Monoclonal gammopathy) and Other (History of myocarditis, history of herniated disc in the neck history of kidney stones, history of problems with urination due to prostatic
hypertrophy, history of alcohol abuse, history of bipolar disorder, history of depression, history of substance abuse)
ED Past Surgical History: Orthopedic (The patient had total knee replacement 6 years ago, he had a left hip replaced 6 years ago, and screws and plate in the next 5-6 years ago.) and Other (He apparently also had several cardiac stents placed.)
Patient has exhibited threatening behavior?: Yes
Date of threatening behavior? (updated with each occurrence): 05/31/20
Social History
Tobacco: Smoker
Alcohol: Chronic alcoholic
Drug: Other
Personal:
Living: with family
Employment: Disabled
Family History
Family History: Other (reviewed and noncontributory)
Review of Systems
Review of Systems
All Other Systems: ROS reviewed and negative except as documented in HPI and ROS
Constitutional: Denies fever or chills
EENT: Denies sore throat or runny nose
Respiratory: Reports trouble breathing; Denies cough
Cardiac: Denies chest pain
ABD/GI: Denies abdominal pain, nausea or vomiting
: Denies flank pain
Musculoskeletal: Denies edema, neck pain or back pain
Neurological: Denies dizzy or headache
Psychiatric: Reports anxiety
Phy Exam
Physical Exam
Physical Exam:
General: Awake, alert, oriented x3; appears very anxious
Head: Normocephalic, atraumatic
Eyes: Conjunctiva normal
Throat: Airway intact, handling secretions
Neck: Trachea midline, no JVD
Lungs: Patient is hyperventilating but not hypoxic, faint scattered wheezing
Heart: Regular rate and rhythm, no murmurs, gallops, or rubs appreciated
Abd: Soft, non distended, nontender
Neuro: Grossly intact
Skin: Bluish-bennett tent to his skin which is apparently chronic
Extremities: No edema in extremities, no calf tenderness, equal pulses in all extremities
Scores
Heart Failure Risk
Heart Failure Risk Score: Not Applicable
Heart Score for Chest Pain Patients
STEMI patient?: Not applicable
Withdrawal Assessment of Alcohol
Withdrawal Assessment Completed?: Not applicable
Sepsis
Sepsis Screening
Sepsis Assessment: Sepsis Ruled Out
Sepsis Screen
Sepsis Screen: Sepsis Ruled Out
Date: 07/14/25
Time: 07:20
Course
Orders/Labs/Results
Orders:
Orders
07/14/25 03:42
Electrocardiogram (*1) Urgent
Reason for Study: Shortness of Breath
EKG- Treatment ONCE
Ipratropium/Albuterol Sulfate [Duoneb] 3 ml INH R NOW STA
Lorazepam [Ativan] 1 mg PO NOW STA
MethylPREDNISolone PF [Solu-Medrol Pf] 125 mg IV NOW STA
CR Chest Portable - 1 View Urgent
Comment:
Reason For Exam: sob
Reason Study Needs to be Portable: Unable to Transport
07/14/25 03:47
0.9% Sodium Chloride 500 ml [Nss] 500 ml IV BOLUS
07/14/25 03:55
Ondansetron Injectable [Zofran] 4 mg IV NOW STA
Pantoprazole [Protonix IV] 40 mg IV NOW STA
07/14/25 03:57
Type+Screen Urgent
Basic Metabolic Panel Urgent
Comment: NO K
Complete Blood Count/With Diff Urgent
NT-proBNP Urgent
Troponin I Urgent
07/14/25 04:28
Lorazepam [Ativan] 2 mg .ROUTE .STK-MED ONE
07/14/25 04:30
Lorazepam [Ativan] 1 mg IV NOW STA
07/14/25 06:32
Troponin I Urgent
Abnormal Lab Results
07/14/25
03:57
WBC 14.5 H 10^3/uL
(4.8-10.8)
RBC 3.06 L 10^6/uL
(4.70-6.10)
Hgb 10.1 L g/dL
(13.0-18.0)
Hct 30.0 L %
(39.0-52.0)
MCV 98.0 H fL
(80.0-94.0)
MCH 33.0 H pg
(27.0-31.0)
RDW 15.4 H %
(11.5-14.5)
Abs Immat Gran (auto) 0.4 H 10^3/uL
(0-0.05)
Absolute Neuts (auto) 12.8 H 10^3/uL
(1.4-6.5)
Absolute Lymphs (auto) 1.0 L 10^3/uL
(1.2-3.4)
Immature Gran % 2.5 H %
(0-0.5)
Neutrophils % 88.2 H %
(42.2-75.2)
Lymphocytes % 6.6 L %
(20.5-51.1)
Carbon Dioxide 19 L mmol/L
(22-30)
BUN 43 H mg/dl
(9-20)
Glucose 142 H mg/dl
(70-99)
07/14/25 03:57
07/14/25 03:57
Vital Signs
Initial and Last Documented VS:
Initial Vital Signs
Pulse Resp BP Pulse Ox
111 28 93/60 100
07/14/25 02:19 07/14/25 02:19 07/14/25 02:19 07/14/25 02:19
Last Documented Vital Signs
Temp Pulse Resp BP Pulse Ox
36.9 C 99 20 172/71 98
07/14/25 06:50 07/14/25 07:00 07/14/25 07:00 07/14/25 07:00 07/14/25 07:00
MDM/Problems Addressed
Differential Diagnosis Includes:
COPD exacerbation, panic attack, pneumonia, pneumothorax, angina/ACS, CHF, less likely PE
MDM/Problems Addressed:
70-year-old male presents to the ER for evaluation of shortness of breath and anxious feeling that he says is consistent with prior panic attacks. Vitals and exam are as above. Plan to check an EKG. Check chest x-ray. Will send labs including a
CBC and a CMP, troponin and proBNP. Will treat with DuoNeb and steroid as he does have some wheezing and a known history of COPD. Treat with p.o. Ativan for anxiety. Reassess after the above.
Patient had 1 episode of bloody emesis shortly after my assessment. He says this has never happened before. No history of GI bleeding he says. Treat with IV Protonix. Added type and screen.
Labs reviewed: CBC shows a leukocytosis to 14.5. Hemoglobin 10.1 essentially stable. Chemistry shows mild metabolic acidosis nongap likely from vomiting earlier. His troponin is negative�will need to repeat. proBNP not significantly elevated.
Chest x-ray shows no acute disease. Overall patient says he is feeling much better. No additional vomiting. He says that his breathing and panic has resolved after Ativan DuoNebs/steroids. Overall suspect that this was some combination of COPD
and anxiety. I spoke to him about staying in the hospital for further observation of his shortness of breath as well as monitoring for any additional bleeding/emesis but patient is adamant that he will not stay in the hospital. He wants to leave
now. I advised him that we are still waiting for repeat troponin and he is willing to stay for this but says that he wants to be discharged thereafter.
Repeat troponin negative. Patient clinically stable. I once again recommended admission but he insist that he wants to go home. Advised him regarding follow-up plan. I spoke to about taking Protonix as it is already on his medication list but he
says he does not take it like he is supposed to and so I wrote him a new prescription and urged him to start taking once again. Urged him to return with any additional vomiting or bloody stools or if he has any additional breathing issues.
Chronic conditions affecting care:
COPD, CAD
*Radiology
Radiology exam reviewed: preliminary read by ED provider
*Pulse Oximetry
SaO2: 100
Oxygen Mode of Delivery: Room air
Patient hypoxic: no (100%)
*Critical Care Note
Total Time (30-74mins, 75-104mins- exclusive of procedures): Not Applicable
Data Reviewed
Review of Other/Old Records Reveals: Labs and Records
Source: patient, records and ambulance crew
ED Attending Note
-
Portions of this chart may have been created with voice recognition software.� Occasional wrong word or��sound alike� substitutions may have occurred due to the inherent limitations of voice recognition software.
Discharge Plan
Departure
Patient Disposition: Home (Routine Discharge)
Date of Disposition: 07/14/25
Time of Disposition: 07:18
Patient with high blood pressure during this ER visit?: No
Discharge Problem:
Hematemesis, Dyspnea, Anxiety
Instructions: Anxiety, Adult (DC), COPD exacerbation, GI bleed (DC)
Prescriptions:
New
pantoprazole 40 mg tablet,delayed release (DR/EC)
40 mg PO DAILY Qty: 30 0RF
No Action
albuterol sulfate 1 PUFF HFA aerosol inhaler
1 puff inhalation R Q4HPRN PRN (Reason: sob or wheezing) Qty: 1 0RF
pantoprazole [Protonix] 40 mg Tablet,Delayed Release (Dr/Ec)
40 mg PO BID
cyclobenzaprine 10 mg Tablet
10 mg PO HSPRN PRN (Reason: spasms)
nicotine 21 mg/24 hr Patch 24 Hour
1 patch TRANSDERMAL DAILY
diclofenac sodium 1 % Gel
0 g TOPICAL DAILYPRN PRN (Reason: areas of pain)
famotidine 20 MG tablet
20 mg PO HS
atorvastatin 40 mg Tablet
40 mg PO QPM 30 Days Qty: 30 0RF
gabapentin 400 mg Capsule
1,200 mg PO HS 30 Days Qty: 90 0RF
amlodipine 2.5 mg Tablet
2.5 mg PO DAILY 30 Days Qty: 30 0RF
quetiapine [Seroquel] 300 mg Tablet
300 mg PO HS 30 Days Qty: 30 0RF
sertraline 100 mg Tablet
100 mg PO HS Qty: 30 0RF
aspirin 81 mg Tablet,Delayed Release (Dr/Ec)
81 mg PO DAILY 30 Days Qty: 30 0RF
ferrous sulfate 325 mg (65 mg iron) Tablet
325 mg PO Q48H 30 Days Qty: 30 0RF
cephalexin 500 mg tablet
500 mg PO TID 7 Days Qty: 21 0RF
cephalexin 500 mg capsule
500 mg PO QID 7 Days Qty: 28 0RF
Referrals:
Onel Sanchez MD [Active, Gastroenterology] - Call in 1-3 days for appt
Activity Restrictions/Additional Instructions:
You are seen in the ER for shortness of breath and panic. You are giving some medicines that help to feel better. He had an episode of vomiting here with blood. We recommended you stay in the hospital for further treatment but he said that he
would not be admitted and asked to be discharged. You should follow-up with the GI doctor regarding your episode of vomiting with blood�call Wednesday to make an appointment as soon as possible. If you have any additional episodes or if you notice
any blood in your stools please return to the ER immediately. You had some abnormal values in your lab work that should be followed up with your primary doctor�again you should call Wednesday to make an appointment as soon as possible.
Interventions
Interventions:
*Risk Screen - Suicide Last Done: 07/14/25 02:19
*General Assessment Last Done: 07/14/25 02:19
*Neglect/Abuse Screening Last Done: 07/14/25 02:19
*ED- Fall Risk Assessment Last Done: 07/14/25 02:19
*ED COVID-19 Vaccine History Last Done: 07/14/25 02:19
*ED Influenza Vaccine History Last Done: 07/14/25 02:19
ED-Psychological Assessment Last Done: 07/14/25 04:42
Discharge Date and Time
Print Language: MALAY
[2025-07-14 04:00] VITALS: BP 150/81
[2025-07-14] MEDS: ZOFRAN 4 MG IV (04:07)
[2025-07-14] MEDS: PROTONIX IV 40 MG IV (04:07)
[2025-07-14] MEDS: SOLU-MEDROL PF 125 MG IV (04:07)
[2025-07-14] MEDS: NSS 500 IV (04:11)
[2025-07-14] MEDS: ATIVAN 1 MG IV (04:31)
[2025-07-14 04:41] LABS: Hematocrit 30.0 % (39.0-52.0); Hemoglobin 10.1 g/dL (13.0-18.0); Mean Corp Hgb Conc. 33.7 g/dL (33.0-37.0); Mean Corpuscular Volume 98.0 fL (80.0-94.0); Nucleated Red Blood Cells % 0.3 % (-); Red Cell Dist. Width 15.4 % (11.5-14.5)
[2025-07-14 04:59] LABS: Blood Urea Nitrogen 43 mg/dl (9-20); Calcium 9.3 mg/dl (8.4-10.2); Carbon Dioxide 19 mmol/L (22-30); Chloride 107 mmol/L (98-107); Glucose 142 mg/dl (70-99); Sodium 136 mmol/L (135-145); eGFR > 60.00
[2025-07-14 05:00] VITALS: BP 123/37
[2025-07-14 05:09] LABS: Troponin I 0.015 ng/ml
[2025-07-14 07:00] VITALS: BP 172/71
[2025-07-14 07:14] LABS: Troponin I 0.020 ng/ml
== END 2025-07-14 08:09 | disposition home or self-care (01) ==
LOC: EMR 02:09
PROVIDERS: EMERGENCY PHYSICIAN Emergency Medicine
DX: K92.0 Hematemesis (principal); R06.00 Dyspnea, unspecified; F41.9 Anxiety disorder, unspecified; E78.00 Pure hypercholesterolemia, unspecified; I25.10 Atherosclerotic heart disease of native coronary artery without angina pectoris; J44.9 Chronic obstructive pulmonary disease, unspecified; F17.200 Nicotine dependence, unspecified, uncomplicated; I10 Essential (primary) hypertension; Z95.5 Presence of coronary angioplasty implant and graft
CPT/HCPCS: 96374; 96375; 99285; 71045; 80048; 83880; 84484; 85025; 86850; 86900; 86901; 93005

== ENCOUNTER 2025-07-14 18:36 | Inpatient (IN) | payer MEDICARE, OTHER, SELFPAY ==
[2025-07-14] VITALS (22 sets, daily range): BP systolic 102–178; BP diastolic 46–116; BMI 22.8
--- NOTE | 2025-07-14 14:04 | ED.GENMED ---
History of Present Illness
General
Chief Complaint: Breathing Problem
Time Seen by Provider: 07/14/25 14:04
History of Present Illness
History of Present Illness:
FOCUSED PAST MEDICAL HISTORY
- CAD, high blood pressure, COPD, alcohol abuse
REVIEW OF OLD RECORDS
- I reviewed records, the patient was seen in the Emergency Department overnight. He came in overnight due to shortness of breath and 'panic' that started 9 PM last night. Records indicate that he was given IV Ativan overnight and was also given
Zofran and Protonix
- Last night, hemoglobin was 10.1 which is higher than prior, white count 14.5, bicarb slightly low at 19, troponin 1 from 0.015-0.020, BNP was 915
Note:
CHIEF COMPLAINT(S)
Bluish-bennett discoloration of the skin, recent anxiety and panic attacks.
HISTORY OF PRESENT ILLNESS
The patient is a 70-year-old male with a history of depression who recently experienced a panic attack. He reports dealing with significant emotional distress following the of his spouse a few months ago. The patient mentions a bluish-bennett
discoloration of his skin attributed to prolonged colloidal silver use, which he has been using as a self-prescribed antibiotic for over 16 years. The patient denied current chest pain or shortness of breath but mentioned gasping for breath at
times. He was evaluated in the ER overnight, where anxiety medications were administered, providing relief. The ER physician noted that the patient had normal oxygen saturation levels. The patient is currently not taking consistent medication for
anxiety or depression but has used quetiapine (Seroquel) in the past under psychiatric guidance. He was previously seeing a psychiatrist, primarily due to sleep issues, and is considering restarting quetiapine for both anxiety and sleep aid.
PAST MEDICAL AND SURGICAL HISTORY
History of depression and sleep disturbances.
SOCIAL DETERMINANTS AFFECTING HEALTH
The patient is dealing with the recent bereavement of his spouse, which has contributed significantly to his current mental health challenges.
MEDICATIONS
Currently on as-needed medications for anxiety; previously took quetiapine for depression and sleep issues.
REVIEW OF SYSTEMS
- Skin: Report of prolonged use of colloidal silver with noted bluish-bennett discoloration.
- Psychiatric: Symptoms of anxiety and depression exacerbated by recent bereavement.
PHYSICAL EXAM
General: Alert, no acute distress. (+) argyria.
Skin: Warm, dry, bluish-bennett discoloration noted.
Head: Normocephalic, atraumatic.
Neck: Supple, trachea midline.
Eye Ears, nose, mouth and throat: Oral mucosa moist.
Cardiovascular: Normal peripheral perfusion, No edema.
Respiratory: Respirations are non-labored.
Gastrointestinal : Abdomen nondistended, heme positive for bloody stool
Back: Normal range of motion, Normal alignment.
Musculoskeletal: Normal ROM, normal strength.
Neurological: Alert and oriented to person, place, time, and situation, No focal neurological deficit observed.
Psychiatric: Cooperative, appropriate mood & affect, displays anxiety related to recent bereavement.
PROBLEM LIST
Acute:
- Anxiety and panic episodes
- Bluish-bennett skin discoloration due to colloidal silver use
Chronic:
- Depression
- Sleep disturbances
PLAN
- Administer a dose of Ativan for acute anxiety management
- Consultation with psychiatry regarding the appropriateness of quetiapine for ongoing anxiety and sleep issues
- Advise discontinuation of colloidal silver use due to its associated skin discoloration and potential toxicity
DIFFERENTIAL DIAGNOSIS
The Differential Diagnosis includes, in no particular order and is not limited to:
- Depression-associated anxiety
- Panic disorder
- Silver-induced argyria
- Chronic obstructive pulmonary disease (COPD) related dyspnea (if respiratory symptoms persist)
- Generalized anxiety disorder
- Major depressive disorder
- Substance-induced mood disorder
- Sleep disorder related to nocturnal panic attacks
- Post-traumatic stress disorder (PTSD)
- Grief reaction or bereavement-related disorder
EKG
- Sinus 101, left axis deviation, incomplete right bundle branch block
LABS
- Hemoglobin 7.6 down from 10.0 earlier today, BUN higher than prior concerning for upper GI bleed
UPDATE
-SUMMARY OF ENCOUNTER
The patient, a 70-year-old male with a history of depression and recent anxiety and panic attacks, was seen in the emergency department following a panic attack. His presentation included anxiety exacerbated by recent bereavement and bluish-bennett
skin discoloration due to prolonged colloidal silver use. He experienced relief from anxiety medications administered at the ER. A previous evaluation revealed normal oxygen saturation levels. The patient has a history of taking quetiapine for sleep
and depression and is considering resuming it. The decision to provide a short course prescription for an anxiolytic was taken, pending further input from the psychiatrist.
DISPOSITION
Discharge.
ASSESSMENT
The patient presented with an anxiety attack likely exacerbated by recent bereavement-related stress and past medical history of depression.
EMERGENCY TREATMENTS ADMINISTERED
A dose of Ativan (lorazepam) was administered in the ER for the acute management of anxiety.
PLAN
1. Provide a short course prescription for an anxiolytic (benzodiazepine) for acute management of severe anxiety episodes.
2. Await input from the psychiatrist regarding the potential resumption of quetiapine for managing anxiety and sleep issues.
3. Advise the patient to discontinue colloidal silver use due to associated skin discoloration and potential toxicity.
4. Admission to the hospital for concern for GI bleed with worsening hemoglobin
INDEPENDENT REVIEW OF LABS AND INTERPRETATION OF TESTS
My independent review of BMP indicates a low bicarbonate level.
MEDICATION RECONCILIATION
A short course prescription for a benzodiazepine provided for acute management of severe anxiety episodes.
MEDICAL DECISION MAKING
- Complexity of Data Reviewed: Chronic conditions affecting care including depression, sleep disturbances, recent anxiety, and panic episodes. Differential diagnoses considered include depression-associated anxiety, panic disorder, silver-induced
argyria, generalized anxiety disorder, major depressive disorder, substance-induced mood disorder, sleep disorder related to nocturnal panic attacks, PTSD, and grief reaction or bereavement-related disorder.
- Data:
Category 1: My independent review of BMP indicates a low bicarbonate level.
Category 3: Awaiting input from a psychiatrist regarding the potential use of quetiapine. -Dr. Tillman recommended 12.5 mg of Seroquel nightly
- Risk:
Consideration was given to a short-term prescription for a benzodiazepine to manage acute anxiety, pending further management plan from the psychiatrist concerning quetiapine use. Prescription drug management was discussed, considering risks of
dependency associated with benzodiazepines.
Care significantly affected by social determinants of health, particularly the recent bereavement of the patient�s spouse, contributing to his anxiety and depression symptoms.
DIAGNOSIS
Anemia with evidence of GI bleed
Anxiety disorder (F41.9)
Depressive disorder (F32.9)
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
Past History
Past History
ED Past Medical History: CAD, COPD, HTN, Hypercholesterolemia, Other (Monoclonal gammopathy) and Other (History of myocarditis, history of herniated disc in the neck history of kidney stones, history of problems with urination due to prostatic
hypertrophy, history of alcohol abuse, history of bipolar disorder, history of depression, history of substance abuse)
ED Past Surgical History: Orthopedic (The patient had total knee replacement 6 years ago, he had a left hip replaced 6 years ago, and screws and plate in the next 5-6 years ago.) and Other (He apparently also had several cardiac stents placed.)
Patient has exhibited threatening behavior?: Yes
Date of threatening behavior? (updated with each occurrence): 05/31/20
Social History
Tobacco: Smoker
Alcohol: Chronic alcoholic
Drug: Other
Personal:
Living: with family
Employment: Disabled
Family History
Family History: Other (reviewed and noncontributory)
Phy Exam
Physical Exam
Physical Exam:
See HPI
Scores
Heart Failure Risk
Heart Failure Risk Score: Not Applicable
Course
Orders/Labs/Results
Orders:
Orders
07/14/25 14:09
EKG [Electrocardiogram (*1)] Urgent
Reason for Study: Shortness of Breath
EKG- Treatment ONCE
07/14/25 14:16
Basic Metabolic Panel Urgent
Troponin I Urgent
07/14/25 14:18
Lorazepam [Ativan] 1 mg IV NOW STA
07/14/25 14:56
Complete Blood Count/With Diff Routine
07/14/25 15:53
Hemoglobin Urgent
Protime/PTT Urgent
Abnormal Lab Results
07/14/25 07/14/25 07/14/25
14:16 14:56 15:53
RBC 2.25 L 10^6/uL
(4.70-6.10)
Hgb 7.5 L D g/dL 7.6 L g/dL
(13.0-18.0) (13.0-18.0)
Hct 24.2 L %
(39.0-52.0)
MCV 107.6 H fL
(80.0-94.0)
MCH 33.3 H pg
(27.0-31.0)
MCHC 31.0 L g/dL
(33.0-37.0)
RDW 15.7 H %
(11.5-14.5)
MPV 11.0 H fL
(7.4-10.4)
Abs Immat Gran (auto) 0.2 H 10^3/uL
(0-0.05)
Absolute Lymphs (auto) 0.5 L 10^3/uL
(1.2-3.4)
Immature Gran % 3.9 H %
(0-0.5)
Neutrophils % 83.9 H %
(42.2-75.2)
Lymphocytes % 9.7 L %
(20.5-51.1)
PT 15.7 H Sec
(11.4-14.6)
Sodium 134 L mmol/L
(135-145)
Carbon Dioxide 16 L mmol/L
(22-30)
BUN 75 H mg/dl
(9-20)
Glucose 186 H mg/dl
(70-99)
07/14/25 15:53
07/14/25 14:16
Vital Signs
Initial and Last Documented VS:
Initial Vital Signs
Pulse Resp Pulse Ox
106 21 100
07/14/25 13:59 07/14/25 13:59 07/14/25 13:59
Last Documented Vital Signs
Temp Pulse Resp BP Pulse Ox
36.7 C 100 19 134/65 99
07/14/25 14:00 07/14/25 15:00 07/14/25 15:00 07/14/25 15:00 07/14/25 16:00
*Pulse Oximetry
Patient hypoxic: no
*Critical Care Note
Total Time (30-74mins, 75-104mins- exclusive of procedures): Not Applicable
ED Attending Note
-
Portions of this chart may have been created with voice recognition software.� Occasional wrong word or��sound alike� substitutions may have occurred due to the inherent limitations of voice recognition software.
Discharge Plan
Departure
Patient Disposition: Admit
Date of Disposition: 07/14/25
Time of Disposition: 17:14
Presentation/result/management discussed w/ accepting MD/DO: Hospitalist
Discharge Problem:
Anemia
Prescriptions:
No Action
albuterol sulfate 1 PUFF HFA aerosol inhaler
1 puff inhalation R Q4HPRN PRN (Reason: sob or wheezing) Qty: 1 0RF
pantoprazole [Protonix] 40 mg Tablet,Delayed Release (Dr/Ec)
40 mg PO BID
cyclobenzaprine 10 mg Tablet
10 mg PO HSPRN PRN (Reason: spasms)
nicotine 21 mg/24 hr Patch 24 Hour
1 patch TRANSDERMAL DAILY
diclofenac sodium 1 % Gel
0 g TOPICAL DAILYPRN PRN (Reason: areas of pain)
famotidine 20 MG tablet
20 mg PO HS
atorvastatin 40 mg Tablet
40 mg PO QPM 30 Days Qty: 30 0RF
gabapentin 400 mg Capsule
1,200 mg PO HS 30 Days Qty: 90 0RF
amlodipine 2.5 mg Tablet
2.5 mg PO DAILY 30 Days Qty: 30 0RF
quetiapine [Seroquel] 300 mg Tablet
300 mg PO HS 30 Days Qty: 30 0RF
sertraline 100 mg Tablet
100 mg PO HS Qty: 30 0RF
aspirin 81 mg Tablet,Delayed Release (Dr/Ec)
81 mg PO DAILY 30 Days Qty: 30 0RF
ferrous sulfate 325 mg (65 mg iron) Tablet
325 mg PO Q48H 30 Days Qty: 30 0RF
cephalexin 500 mg tablet
500 mg PO TID 7 Days Qty: 21 0RF
cephalexin 500 mg capsule
500 mg PO QID 7 Days Qty: 28 0RF
pantoprazole 40 mg tablet,delayed release (DR/EC)
40 mg PO DAILY Qty: 30 0RF
Referrals:
UNKNOWN - PT DOES,NOT KNOW [Family Provider]
Interventions
Interventions:
*Risk Screen - Suicide Last Done: 07/14/25 14:00
*General Assessment Last Done: 07/14/25 14:00
*Neglect/Abuse Screening Last Done: 07/14/25 14:00
ED- Cardiac Assessment Last Done: 07/14/25 15:57
ED- Pulmonary Assessment Last Done: 07/14/25 15:57
Discharge Date and Time
Print Language: SINHALA
[2025-07-14] MEDS: ATIVAN 1 MG IV (14:31)
[2025-07-14 14:45] LABS: Blood Urea Nitrogen 75 mg/dl (9-20); Calcium 8.7 mg/dl (8.4-10.2); Carbon Dioxide 16 mmol/L (22-30); Chloride 105 mmol/L (98-107); Estimated Creatinine Clearance 61 ml/min; Glucose 186 mg/dl (70-99); Sodium 134 mmol/L (135-145); eGFR > 60.00
[2025-07-14 14:55] LABS: Troponin I 0.020 ng/ml
[2025-07-14 15:32] LABS: Hematocrit 24.2 % (39.0-52.0); Hemoglobin 7.5 g/dL (13.0-18.0); Mean Corp Hgb Conc. 31.0 g/dL (33.0-37.0); Mean Corpuscular Volume 107.6 fL (80.0-94.0); Platelet Count 149 10^3/uL (130-400); Red Cell Dist. Width 15.7 % (11.5-14.5)
[2025-07-14 16:12] LABS: Hemoglobin 7.6 g/dL (13.0-18.0)
[2025-07-14 16:16] LABS: APTT 26.5 Sec (23.4-35.0); INR 1.22; PT 15.7 Sec (11.4-14.6)
[2025-07-14 16:22] LABS: Nucleated Red Blood Cells % 1.2 % (-)
--- NOTE | 2025-07-14 16:46 | HPS.HSE ---
Addendum entered and electronically signed by Mercedes Negron MD 07/14/25 19:25:
This is an addendum to H&P written by Nichole Guadarrama on 07/14/2025. �Patient seen and examined independently with resident.
70-year-old male past medical history of COPD, smoking history, hypertension, hyperlipidemia, CAD status post stents, alcohol use disorder, GERD, presenting for bright red hematemesis today and yesterday.
Came to the emergency room yesterday for anxiety and shortness of breath diagnosis panic attack treated With Ativan. �He also had hematemesis 1 episode in the afternoon but hemoglobin was normal and he was discharged.
recently with ongoing anxiety/depression�
Patient drinks colloidal silver for 17 years to cleanse his body.
Chronic left ankle wound.
Vital signs show mild tachycardia. �On physical examination he has argyria of fingernails. Rectal exam showed bright red fresh blood.
Labs show hemoglobin of 7.5 from 10.1 this morning Which is macrocytic. �Bicarb of 16. �Troponin 0.02.
Chest x-ray shows clear lungs.
Patient with mixed acute blood loss anemia/macrocytic anemia secondary to hematemesis possibly gastric ulcer related to silver toxicity. �Clear liquid diet, n.p.o. past midnight, Protonix 40 twice daily.� 1 unit blood. GI consulted. �Hold aspirin.
Patient with chronic non-anion gap metabolic acidosis unclear etiology possibly from vomiting/ silver toxicity.�
ER spoke with Psychiatry who recommended starting Seroquel 12.5 mg which helped previously.�
Original Note:
Family Physician
-
Family Physician: NOT KNOW UNKNOWN - PT DOES
Chief Complaint
-
Hematemesis
History of Present Illness
70-year-old male with past medical history of COPD, hypertension, hyperlipidemia, CAD s/p stents, alcohol abuse, GERD was seen in the ER for panic attack, SOB and was given antianxiety medications, observed overnight and the patient felt better.
Patient had 2 episodes of hematemesis during his ER stay, and his hemoglobin dropped from 10-7.5. He was also tachycardic, had some mild persistent dyspnea, afebrile. Patient denies previous episodes of hematemesis, hematochezia, melena, did not
have any recent colonoscopy, screening CT chest. He is a chronic smoker, smokes 5 to 10 cigarettes/day, does not drink alcohol. Patient denies chest pain, headaches, blurry vision, lightheadedness/dizziness, abdominal pain, hematuria. Patient was
not recently sick, does not take NSAIDs on a chronic basis.
Medical History
Past Medical History
Past Medical History: Reports Other (CAD, hypertension, hypercholesterolemia, COPD, monoclonal gammopathy, BPH, bipolar disorder, depression, substance abuse)
Past Surgical History: Reports Other (Total knee replacement, left hip replacement, CAD with stents)
Social History
Tobacco: Smoker
Drug: None
Personal:
Living: Alone
Family History
Family History: Not pertinent
Allergies / Home Medications
Allergies reflects when Allergies were last updated in [employer]
Home Medications with original date entered in [employer]
Allergy/Medication List:
Allergies
Allergy/AdvReac Type Severity Reaction Status Date / Time
adhesive Allergy Itching/RED Verified 07/14/25 13:59
NESS
codeine (Codeine) Allergy Itching, Verified 07/14/25 13:59
flushing,rash/ok
with
oxycodone
hydrocodone Allergy itchying, Verified 07/14/25 13:59
flushing,rash/ok
with
oxycodone
morphine Allergy Itching Verified 07/14/25 13:59
chest up
Home Medications
albuterol sulfate 90 mcg/actuation aerosol inhaler 1 puff inhalation R Q4HPRN PRN sob or wheezing ##1 01/25/20
cyclobenzaprine 10 mg tablet 10 mg PO HSPRN PRN spasms 03/06/25
diclofenac sodium 1 % topical gel 0 g topical DAILYPRN PRN areas of pain 03/06/25
nicotine 21 mg/24 hr daily transdermal patch 1 patch transdermal DAILY NICOTINE REPLACEMENT 03/06/25
pantoprazole 40 mg tablet,delayed release (Protonix) 40 mg PO BID Gastrointestinal Issue 03/06/25
famotidine 20 mg tablet 20 mg PO HS Gastrointestinal Issue 03/07/25
amlodipine 2.5 mg tablet 2.5 mg PO DAILY 30 days #30 tabs 03/15/25
aspirin 81 mg tablet,delayed release 81 mg PO DAILY Heart Disease/Condition 30 days #30 tabs 03/15/25
atorvastatin 40 mg tablet 40 mg PO QPM 30 days #30 tabs 03/15/25
ferrous sulfate 325 mg (65 mg iron) tablet 325 mg PO Q48H Supplement 30 days #30 tabs 03/15/25
gabapentin 400 mg capsule 1,200 mg (3 x 400 mg) PO HS 30 days #90 caps 03/15/25
quetiapine 300 mg tablet (Seroquel) 300 mg PO HS Mental Health/Anxiety 30 days #30 tabs 03/15/25
sertraline 100 mg tablet 100 mg PO HS Mental Health/Anxiety #30 tabs 03/15/25
cephalexin 500 mg tablet 500 mg PO TID 7 days #21 tabs 04/05/25
cephalexin 500 mg capsule 500 mg PO QID 7 days #28 caps 05/01/25
pantoprazole 40 mg tablet,delayed release 40 mg PO DAILY #30 tabs 07/14/25
Review of Systems
-
A 12 point ROS was completed and negative except as noted: Yes
Physical Exam
Vital Signs
Vital Signs
Temp Pulse Resp BP Pulse Ox
98.1 F 100 19 134/65 99
07/14/25 14:00 07/14/25 15:00 07/14/25 15:00 07/14/25 15:00 07/14/25 16:00
Physical Exam
General: No Apparent Distress
HEENT: NormoCephalic and Atraumatic
Respiratory: Clear
Cardiac: S1/S2 and Tachycardia
GI: Soft, Non Tender, Non Distended and Normal Bowel Sounds
Musculoskeletal: Other (Open wound left lower extremity, on the ankle)
Skin: Warm and Dry
Neuro: Awake, Alert, Oriented and AO x 3
Psych: Calm
Laboratory Results
-
07/14/25 15:53
07/14/25 14:16
Laboratory Results
PT 15.7 Sec (11.4-14.6) H 07/14/25 15:53
INR 1.22 07/14/25 15:53
APTT 26.5 Sec (23.4-35.0) 07/14/25 15:53
Total Bilirubin Cancelled 07/14/25 14:16
AST Cancelled 07/14/25 14:16
ALT Cancelled 07/14/25 14:16
Alkaline Phosphatase Cancelled 07/14/25 14:16
Troponin I 0.020 ng/ml 07/14/25 14:16
Impression/Plan
-
IMPRESSION:
70-year-old male with past medical history of COPD, hypertension, hyperlipidemia, CAD s/p stents, alcohol abuse, GERD presenting to the ER with anxiety, treated for panic attack and he felt relieved after taking Ativan. Patient had 2 episodes of
hematemesis, Hemoccult positive stool. Hemoglobin dropped down from 10-7.5 overnight.
PLAN:
#Acute GI bleed
#Hematemesis
#Acute on chronic anemia
Macrocytic anemia
Patient not on chronic NSAIDs, DOACs.
Patient has been drinking homemade colloidal silver from the past 17 years (states it cleanses him)
Etiology likely from [place] from vomiting, anemia of chronic disease, silver toxicity, upper or lower GI bleed
His baseline hemoglobin at 8.5�9
Patient had 2 episodes of hematemesis, and hemoglobin dropped down from 10-7.5 overnight.
Hemoccult positive stool
Will workup for anemia�iron studies, B12, folate, LDH, haptoglobin
IV fluids
IV Protonix
1 PRBC
H&H
GI consult
Clears for now, n.p.o. from midnight
#Non-anion gap metabolic acidosis
Might be related to his chronic colloidal silver ingestion
Will check lactate
#CAD s/p stents
Will hold aspirin
Will continue atorvastatin
#Hyperlipidemia
Continue atorvastatin
#Hypertension
Continue amlodipine 2.5
#Anxiety/depression/panic attack
Can continue home dose sertraline 100 mg at bedtime
ER took input from psychiatrist Dr. Fowler, recommended to start Seroquel at 12.5 mg at bedtime
#Chronic smoker
Start nicotine patch
DVT prophylaxis�SCDs
Diet�clears for now, n.p.o. from midnight
Full code
--- NOTE | 2025-07-14 19:07 | PHANOTE ---
med rec tech: patient says that he doesn't know any of his prescription meds. [facility], but there was no one to help me and they said to call back tomorrow.
--- NOTE | 2025-07-14 19:18 | EDRN ---
Vital signs saved from previous shift by this RN.
[2025-07-14 21:09] LABS: Hematocrit 19.5 % (39.0-52.0); Hemoglobin 6.6 g/dL (13.0-18.0); Reticulocyte Count 3.6 % (0.4-2.8)
[2025-07-14 21:12] LABS: LDH 174 U/L (120-246)
[2025-07-14 21:21] LABS: Total Iron Binding Capacity 274 ug/dl (261-462)
[2025-07-14 21:57] LABS: Vitamin B12 503 pg/ml (239-931)
--- NOTE | 2025-07-14 23:16 | W.PN.UPDATE ---
Update Note
Progress Note Update
~ 23:00 Rapid response called, patient vomiting dark red blood w/large clots (approximately 300 mls), vital signs stable: BP 154/66, HR 108, room air 100%, respiration 14 and unlabored. Exam findings: Patient does have bennett appearance d/t colloidal
silver use for last 17 years. Patient Ox3, HR reg, lungs clear, abdomen soft +BS x 4, pt does report lower abdominal pain.
TT'd on-call GI, Dr. Sanchez, updated on events, appreciate his assistance. No NG tube at this time. Ordered serial H&Hs, transfuse for Hgb <8. Ordered Co-ags. LR 1L bolus and continue fluids, LR @ mls/hr. Ordered Zofran 4 mg IV Q6H PRN, transfuse
ordered PRBCs 1 unit (previously ordered), continue Protonix 40 mg IV BID. Patient strict NPO, on bedrest until re-evaluated in am. Patient hemodynamically stable at this time. Upgrade to higher level of care if condition worsens. ICU HR RECRUITER at bedside
during rapid, appreciate assistance.
~ 23:50 Dr. Sanchez, non linear editor GI, at bedside to evaluate patient. Continue plan as outlined above.
~ 5:30 Critical AM labs: Hgb 6.8/Hct 20.8. Ordered 1 unit PRBC's to transfuse now. Also ordered 1 unit FFP.
[2025-07-14] MEDS: LR 1000 IV ×2 (23:25→23:26)
--- NOTE | 2025-07-14 23:30 | RR ---
A Rapid Response was called on this patient, please see Rapid Response form.
--- NOTE | 2025-07-14 23:45 | PTCARENOTE ---
LENS HARDENER called overnight. Pt began vomiting large amounts of coffee ground emesis and passing dark stools. pt was more bennett in color, diaphoretic & slight SOB. BPs were stable all night. 1unit PRBC given at this time. 1L bolus given. GI consulted &
called and at bedside to see pt. Pt complains of slight lower abdominal pain. Will continue to monitor.
[2025-07-15] VITALS (48 sets, daily range): BP systolic 107–189; BP diastolic 43–93; BMI 21.3
--- NOTE | 2025-07-15 00:03 | CON.GI ---
Consultation
-
Date/Time Consultation Performed: 07/14/2025
Performing Provider: Luis Alberto Sanchez MD
Reason for Consultation: hematemesis
Medical History
Chief Complaint / HPI
Chief Complaint: hematemesis
History of Present Illness:
The patient is a 70-year-old male with past medical history as noted who presents with anxiety and hematemesis. He was in the ER early yesterday with anxiety, given anxiolytics and felt better. He had an episode of hematemesis at home as well as
in the ER, described as coffee grounds.He was discharged though returned again several hours later. On the floor he had 1 significant episode of coffee-ground emesis, about 500 cc. He states that this is similar to the episode that he had last
night and during the day. He had 1 bowel movement, did not see the color, though has not had any other bowel movements yesterday or today. He denies any lightheadedness or dizziness. He denies any abdominal pain. He never had bleeding like this
before. He denies any extraneous NSAIDs. He used to have significant alcohol is not had alcohol in some time. He denies any history of liver disease. Currently he is feeling well, denies any lightheadedness, dizziness, abdominal pain.
Past Medical History
Past Medical History: Other (Coronary artery disease, status post stent, hypertension, high cholesterol, COPD, monoclonal gammopathy, bipolar, depression, previous alcohol abuse, BPH. Chronic colloid silver use)
Past Surgical History: Other (Knee replacement, hip replacement)
Social History
Tobacco: Smoker
Alcohol: None
Family History
Family History: Reviewed & Not Pertinent
Allergies / Home Medications
Allergy/AdvReac Type Severity Reaction Status Date / Time
adhesive Allergy Itching/RED Verified 07/14/25 13:59
NESS
codeine (Codeine) Allergy Itching, Verified 07/14/25 13:59
flushing,rash/ok
with
oxycodone
hydrocodone Allergy itchying, Verified 07/14/25 13:59
flushing,rash/ok
with
oxycodone
morphine Allergy Itching Verified 07/14/25 13:59
chest up
�Medication �Instructions �Recorded
albuterol sulfate 90 mcg/actuation 1 puff inhalation R Q4HPRN PRN sob 01/25/20
aerosol inhaler or wheezing ##1
cyclobenzaprine 10 mg tablet 10 mg PO HSPRN PRN spasms 03/06/25
diclofenac sodium 1 % topical gel 0 g topical DAILYPRN PRN areas of 03/06/25
pain
nicotine 21 mg/24 hr daily 1 patch transdermal DAILY NICOTINE 03/06/25
transdermal patch REPLACEMENT
pantoprazole 40 mg tablet,delayed 40 mg PO BID Gastrointestinal Issue 03/06/25
release (Protonix)
famotidine 20 mg tablet 20 mg PO HS Gastrointestinal Issue 03/07/25
amlodipine 2.5 mg tablet 2.5 mg PO DAILY 30 days #30 tabs 03/15/25
aspirin 81 mg tablet,delayed 81 mg PO DAILY Heart 03/15/25
release Disease/Condition 30 days #30 tabs
atorvastatin 40 mg tablet 40 mg PO QPM 30 days #30 tabs 03/15/25
ferrous sulfate 325 mg (65 mg 325 mg PO Q48H Supplement 30 days 03/15/25
iron) tablet #30 tabs
gabapentin 400 mg capsule 1,200 mg (3 x 400 mg) PO HS 30 03/15/25
days #90 caps
quetiapine 300 mg tablet (Seroquel) 300 mg PO HS Mental Health/Anxiety 03/15/25
30 days #30 tabs
sertraline 100 mg tablet 100 mg PO HS Mental Health/Anxiety 03/15/25
#30 tabs
cephalexin 500 mg tablet 500 mg PO TID 7 days #21 tabs 04/05/25
cephalexin 500 mg capsule 500 mg PO QID 7 days #28 caps 05/01/25
pantoprazole 40 mg tablet,delayed 40 mg PO DAILY #30 tabs 07/14/25
release
Review of Systems
-
All other systems: A 12 pt ROS was Negative except as stated above in HPI
Vital Signs
Temp Pulse Resp BP Pulse Ox
98.1 F 108 14 154/66 100
07/14/25 23:34 07/14/25 23:34 07/14/25 23:34 07/14/25 23:34 07/14/25 23:34
Physical Exam
Exam
General: NAD
HEENT: MMM, anicteric, no lymphadenopathy
Heart: Regular, no murmurs
Lungs: CTA bilaterally
Abdomen: normal bowel sounds, soft, no tenderness, no rebound or guarding, no masses, bruits or ascites
Extremeties: no edema
Skin: no rashes, bluish hue
Results
WBC 5.1 10^3/uL (4.8-10.8) 07/14/25 14:56
Hgb 6.6 g/dL (13.0-18.0) L* 07/14/25 20:42
Hct 19.5 % (39.0-52.0) L* 07/14/25 20:42
MCV 107.6 fL (80.0-94.0) H 07/14/25 14:56
Plt Count 149 10^3/uL (130-400) 07/14/25 14:56
Absolute Neuts (auto) 4.3 10^3/uL (1.4-6.5) 07/14/25 14:56
PT Cancelled 07/14/25 23:10
INR Cancelled 07/14/25 23:10
APTT 26.5 Sec (23.4-35.0) 07/14/25 15:53
Sodium 134 mmol/L (135-145) L 07/14/25 14:16
Potassium mmol/L (3.5-5.1) 07/14/25 14:16
Chloride 105 mmol/L (98-107) 07/14/25 14:16
Carbon Dioxide 16 mmol/L (22-30) L 07/14/25 14:16
BUN 75 mg/dl (9-20) H 07/14/25 14:16
Creatinine 1.2 mg/dL (0.7-1.3) 07/14/25 14:16
Calcium 8.7 mg/dl (8.4-10.2) 07/14/25 14:16
Total Bilirubin 0.4 mg/dl (0.2-1.3) 07/14/25 20:42
AST Cancelled 07/14/25 14:16
ALT Cancelled 07/14/25 14:16
Alkaline Phosphatase Cancelled 07/14/25 14:16
Diagnostic Image Results:
Prior GI Procedures:
EGD:
Colonoscopy:
Assessment / Plan
-
1. Hematemesis: With coffee-ground emesis, several times since yesterday, though has remained hemodynamically stable. He has no melena, exam is benign. Most likely etiology would be Bekah-Nieto tear versus peptic ulcer disease. He has a
history of alcohol use, though normal LFTs this year, normal INR and platelets, clinically doubt cirrhosis, much less likely esophageal varices. His is not far from his baseline hemoglobin which is around 8, macrocytic, and again has remained
hemodynamically stable. At this point he is currently receiving transfusion, continue to trend hemoglobin, PPI, IV fluids and n.p.o. for now. Will plan EGD likely Wednesday pending his clinical course. I discussed with nurse practitioner and
patient's nurse.
-
-
Thank you for consultation and allowing me to participate in the patient's care. Please call the radio division officer GI physician during the after hours with any questions or concerns.
[2025-07-15 00:51] LABS: INR 1.27; PT 16.2 Sec (11.4-14.6)
[2025-07-15 00:52] LABS: APTT 25.2 Sec (23.4-35.0)
[2025-07-15 01:03] LABS: Hematocrit 21.2 % (39.0-52.0); Hemoglobin 7.3 g/dL (13.0-18.0)
[2025-07-15 05:22] LABS: Hematocrit 20.8 % (39.0-52.0); Hemoglobin 6.8 g/dL (13.0-18.0); Mean Corp Hgb Conc. 32.7 g/dL (33.0-37.0); Mean Corpuscular Volume 100.5 fL (80.0-94.0); Nucleated Red Blood Cells % 2.1 % (-); Platelet Count 94 10^3/uL (130-400); Red Cell Dist. Width 16.9 % (11.5-14.5)
[2025-07-15 05:51] LABS: TSH 0.79 uIU/ml (0.47-4.68)
[2025-07-15 05:55] LABS: Ferritin 269.0 ng/ml (17.9-464.0)
[2025-07-15 06:27] LABS: Folate 4.6 ng/ml (2.76-20)
--- NOTE | 2025-07-15 06:29 | PTCARENOTE ---
Heme test positive this am. Pt having black loose stools X4 overnight.
[2025-07-15 06:54] LABS: ALT (SGPT) 12 U/L (0-50); AST (SGOT) 15 U/L (17-59); Albumin 2.9 g/dl (3.5-5.0); Alkaline Phosphatase 33 U/L (38-126); Blood Urea Nitrogen 104 mg/dl (9-20); Calcium 8.7 mg/dl (8.4-10.2); Carbon Dioxide 19 mmol/L (22-30); Chloride 110 mmol/L (98-107); Estimated Creatinine Clearance 68 ml/min; Glucose 150 mg/dl (70-99); Iron 224 ug/dl (49-181); Potassium 4.2 mmol/L (3.5-5.1); Sodium 134 mmol/L (135-145); Total Protein 5.1 g/dl (6.3-8.2); eGFR > 60.00
[2025-07-15] MEDS: ZOFRAN 4 MG IV (06:58)
--- NOTE | 2025-07-15 07:06 | W.PN.GI.CBS2 ---
Today's Communication / Plan
-
Please see assessment and plan for details.
Assessment / Plan
-
1. Hematemesis: With coffee-ground emesis, several times since yesterday, though has remained hemodynamically stable. He did have some melenic stools overnight, did not respond appropriately to transfusion, though remains hemodynamically stable.
He is receiving second PRBCs now, plan EGD this morning.
Subjective
Subjective
Date of Service: July 15, 2025
Patient remained stable overnight, though did have several melenic stools. Another episode of significant coffee-ground emesis this morning. Serum globin did drift down after transfusion, receiving second PRBCs now, remains hemodynamically stable.
Denies any lightheadedness or dizziness.
Objective
Data Reviewed
Laboratory Data:
Laboratory Results
07/15/25 06:05
Laboratory Results
PT 16.2 Sec (11.4-14.6) H 07/15/25 00:28
INR 1.27 07/15/25 00:28
APTT 25.2 Sec (23.4-35.0) 07/15/25 00:28
Total Bilirubin 0.5 mg/dl (0.2-1.3) 07/15/25 06:05
AST 15 U/L (17-59) L 07/15/25 06:05
ALT 12 U/L (0-50) 07/15/25 06:05
Alkaline Phosphatase 33 U/L (38-126) L 07/15/25 06:05
Vital Signs and I&O:
Vital Signs
Temp Pulse Resp BP Pulse Ox
98.1 F 110 20 137/64 100
07/15/25 06:40 07/15/25 06:40 07/15/25 06:40 07/15/25 06:40 07/15/25 06:40
I&O
07/14/25 07/15/25 07/16/25
06:59 05:59 06:59
Intake Total 350 / 350
Output Total 450 / 450
Balance -100 / -100
Physical Exam
Physical Exam
General: NAD
Abdomen: normal bowel sounds, soft, no tenderness, no masses or bruits, no ascites
--- NOTE | 2025-07-15 08:05 | PTCARENOTE ---
Pt had another episode of coffee ground emesis this morning. Also passing many dark stools, heme +. BP still stable. On 2LNC for tachypnea and SOB. IVF running. Redraw for hgb was 6.8, [employer] aware, another PRBC ordered and 1FFP ordered. GI at bedside
again. Pt aaox3, anxious. Will continue to monitor.
--- NOTE | 2025-07-15 08:50 | W.PN.HOSP.TC ---
Addendum entered and electronically signed by Carlos Cerrato MD 07/15/25 18:36:
Repeat Hbg 7 after 3unit PRBC, ordering 4th unit PRBC
Addendum entered and electronically signed by Carlos Cerrato MD 07/15/25 16:36:
Cardiology consulted and requested to contact if any issues arise overnight
patient will be evaluated in the morning by cardiology,
Addendum entered and electronically signed by Carlos Cerrato MD 07/15/25 15:39:
f/u EKG in IMU showing ST seg changes has resolved. F/u repeat trop in 4 hrs
Patient sleeping comfortably in bed, denies having ongoing chest pain
Patient cannot be anticoagulated with heparin drip plus or minus antiplatelets with active GI bleed issue
Will involve cardiology if have repeat chest pain episode or significant trop bump
Addendum entered and electronically signed by Carlos Cerrato MD 07/15/25 14:48:
I saw and evaluated the patient. I reviewed the resident�s note and agree with findings and plan as documented in the resident�s note.
1. Upper GI bleed/hematemesis/acute blood loss anemia -patient had 2 episodes of hematemesis. Developed new significant anemia which did not respond to 2 unit of PRBC. Patient started on PPI. Denies NSAID use. Only on aspirin. No previous
history of GI bleed. GI took patient to EGD which showed 1 bleeding esophageal ulcer suspected to be Bekah-Nieto in nature, was hemo-sprayed with hemostasis achieved. 3 unit PRBC ordered with repeat check of hemoglobin in the evening. Patient
to remain n.p.o. today for GI recommendation. May require repeat EGD if continued to have bleeding.
2. Chest pain episode/troponin elevated -post endoscopy patient was having some sternal chest discomfort. EKG reviewed and showing V2-V6 ST segment depression. Troponin marginally elevated. Repeat EKG and troponin checked to be done. Cardiology
consultation placed. Patient does have history of coronary artery disease.
3. [place] -patient has been using colloidal silver for 15-year plus as a home remedy for infection prevention. Visible bluish discoloration of skin.
4. Anxiety/panic attack -patient apparently was initially in the ER for episode of anxiety/panic attack which was treated with benzodiazepine.
Total critical care time 43 mins . Total critical care time documented does not include time spent on separately billed procedures or the services of residents, students, nurses or physician assistants. I personally saw and examined the patient. I
have reviewed all diagnostic interpretations and treatment plans as written. I was present for the cherry portions of any procedures performed and the inclusive time noted in any critical care statement. Critical care time includes patient management
by me, time spent at the patients bedside, time to review lab and imaging results, discussing patient care, documentation in the medical record, and time spent with the family or caregiver.
Original Note:
Today's Communication/Plan
-
Hemoglobin did not increment adequately after a unit of packed red blood cells, so patient received a third unit, as well as fresh frozen plasma.
Pending EGD results.
Consulted wound care for left heel pressure ulcer
Assessment / Plan
Assessment / Plan
IMPRESSION:
Mr. Anselmo Flanagan is a 70-year-old male with patient notable for anxiety/depression/panic attacks, prior alcohol use disorder, GERD, COPD, hypertension, hyperlipidemia, CAD s/p stents, spine stimulator, who presented due to a panic attack and
developed hematemesis with acute anemia in the ED. Hemoglobin dropped down from 10-7.5. Patient had 2 episodes of hematemesis in ED, right red blood on rectal exam, and Hemoccult positive stool.
He presented to the ED for panic attack (shortness of breath) and developed hematemesis with acute anemia (Hb dropping from 10-7.5). He was advised to be admitted for acute anemia. Patient declined, he was advised to follow-up with GI (make an
appointment on Wednesday/[facility]). He was discharge 07/2025 early a.m. from the ED, and he returned that evening and was admitted.
PLAN:
#Acute GI bleed
#Hematemesis
#Acute on chronic anemia
Macrocytic anemia
Patient not on chronic NSAIDs, DOACs.
Patient has been driFor [place] homemade colloidal silver from the past 17 years (states it cleanses him)
Etiology likely from Bekah-Nieto from vomiting, anemia of chronic disease, silver toxicity, upper and/or lower GI bleed
baseline hemoglobin 8.5�9
Patient had 2 episodes of hematemesis, and hemoglobin dropped down from 10-7.5 overnight.
�Bright red blood on rectal exam. Hemoccult positive stool
�IV fluids
�IV Protonix
�2 units PRBC
�Aspirin held
workup for anemia�iron studies, B12, folate, LDH, haptoglobin
� Iron 224 (on ferrous sulfate supplement). TIBC 274 normal. Ferritin 269 normal.
� Vitamin B12 503 low�normal. Folate 4.6 normal. TSH 0.79 low�normal
� LDH 174 normal. Haptoglobin pending
GI consult
� Started with clear liquid diet, n.p.o. from midnight for EGD 07/15/2025 AM
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
BUN 75 to 104. Silver can damage glomeruli
Macrocytic anemia. Silver suppresses bone marrow/myelopoiesis
� Continuing to advise patient to discontinue colloidal silver ingestion in the setting of acute health problems
#Anxiety/depression/panic attack
Grieving 's a few months ago
�Continue home sertraline 100 mg at bedtime
� Resumed Seroquel at 12.5 mg at bedtime
#Non-anion gap metabolic acidosis
Might be related to his chronic colloidal silver ingestion
Lactate 2.1, downtrending to 1.7
#Concern for protein calorie malnutrition
Weight 71 to 76 kg this admission. BMI 21. 77 kg in 02/2025. 93 kg in 05/2020
Total protein 5.1. Albumin 2.9 low
� Considering future nutrition consult
#Left heel pressure ulcer
Yellow skin discoloration around the ulcer. It does not appear infected
� Wound care consult
#CAD s/p stents
�Hold aspirin due to symptomatic anemia with GI bleed
�Continue atorvastatin
#Hyperlipidemia
�Continue atorvastatin
#Hypertension
�Continue amlodipine 2.5
#Chronic smoker
�Start nicotine patch
DVT prophylaxis�SCDs
Diet�n.p.o. from midnight for EGD
Full code
Anticipated Discharge: > 48 hours
Subjective/Interval History
-
Date of Service: July 15, 2025
Hemoglobin dropped to 6.8 after incrementing appropriately after PRBCs yesterday. Gave patient a 3rd unit of PRBCs.
Objective Data
-
Labs:
Hematology and Coagulation - Last 24 hours
07/14/25 07/14/25 07/14/25 Range/Units
14:16 14:56 15:53
WBC Cancelled 5.1
RBC Cancelled 2.25 L
Hgb Cancelled 7.5 L D 7.6 L
Hct Cancelled 24.2 L
MCV Cancelled 107.6 H
MCH Cancelled 33.3 H
MCHC Cancelled 31.0 L
RDW Cancelled 15.7 H
Plt Count Cancelled 149
MPV Cancelled 11.0 H
Abs Immat Gran (auto) Cancelled 0.2 H
Absolute Neuts (auto) Cancelled 4.3
Absolute Lymphs (auto) Cancelled 0.5 L
Absolute Monos (auto) Cancelled 0.1
Absolute Eos (auto) Cancelled 0.0
Absolute Basos (auto) Cancelled 0.0
CBC Comment Cancelled
Immature Gran % Cancelled 3.9 H
Neutrophils % Cancelled 83.9 H
Lymphocytes % Cancelled 9.7 L
Monocytes % Cancelled 2.1
Eosinophils % Cancelled 0.0
Basophils % Cancelled 0.4
Nucleated RBC % Cancelled 1.2
Retic Count (0.4-2.8) %
Haptoglobin
PT 15.7 H (11.4-14.6) Sec
INR 1.22
APTT 26.5 (23.4-35.0) Sec
07/14/25 07/14/25 07/15/25 Range/Units
20:42 23:10 00:28
WBC
RBC
Hgb 6.6 L* 7.3 L
Hct 19.5 L* 21.2 L
MCV
MCH
MCHC
RDW
Plt Count
MPV
Abs Immat Gran (auto)
Absolute Neuts (auto)
Absolute Lymphs (auto)
Absolute Monos (auto)
Absolute Eos (auto)
Absolute Basos (auto)
CBC Comment
Immature Gran %
Neutrophils %
Lymphocytes %
Monocytes %
Eosinophils %
Basophils %
Nucleated RBC %
Retic Count 3.6 H (0.4-2.8) %
Haptoglobin
PT Cancelled 16.2 H (11.4-14.6) Sec
INR Cancelled 1.27
APTT 25.2 (23.4-35.0) Sec
07/15/25 07/15/25 07/15/25 Range/Units
04:38 04:38 04:38
WBC 7.7
RBC 2.07 L
Hgb Cancelled 6.8 L*
Hct Cancelled 20.8 L*
MCV 100.5 H
MCH 32.9 H
MCHC 32.7 L
RDW 16.9 H
Plt Count 94 L D
MPV 12.1 H
Abs Immat Gran (auto) 0.3 H
Absolute Neuts (auto) 5.5
Absolute Lymphs (auto) 1.4
Absolute Monos (auto) 0.5
Absolute Eos (auto) 0.0
Absolute Basos (auto) 0.0
CBC Comment
Immature Gran % 3.8 H
Neutrophils % 71.6
Lymphocytes % 18.4 L
Monocytes % 6.1
Eosinophils % 0.0
Basophils % 0.1
Nucleated RBC % 2.1
Retic Count (0.4-2.8) %
Haptoglobin
PT (11.4-14.6) Sec
INR
APTT (23.4-35.0) Sec
07/15/25 07/15/25 07/15/25 Range/Units
06:00 09:00 15:00
WBC
RBC
Hgb Pending Pending
Hct Pending Pending
MCV
MCH
MCHC
RDW
Plt Count
MPV
Abs Immat Gran (auto)
Absolute Neuts (auto)
Absolute Lymphs (auto)
Absolute Monos (auto)
Absolute Eos (auto)
Absolute Basos (auto)
CBC Comment
Immature Gran %
Neutrophils %
Lymphocytes %
Monocytes %
Eosinophils %
Basophils %
Nucleated RBC %
Retic Count (0.4-2.8) %
Haptoglobin Pending
PT (11.4-14.6) Sec
INR
APTT (23.4-35.0) Sec
Blood Gas and Chemistry - Last 24 hours
07/14/25 07/14/25 07/15/25 Range/Units
14:16 20:42 04:38
Sodium 134 L Cancelled (135-145) mmol/L
Potassium Cancelled (3.5-5.1) mmol/L
Chloride 105 Cancelled (98-107) mmol/L
Carbon Dioxide 16 L Cancelled (22-30) mmol/L
BUN 75 H Cancelled (9-20) mg/dl
Creatinine 1.2 Cancelled (0.7-1.3) mg/dL
Estimated Creat Clear 61 Cancelled ml/min
eGFR > 60.00 Cancelled
Glucose 186 H Cancelled (70-99) mg/dl
Lactic Acid 2.1 H (0.7-2.0) mmol/L
Calcium 8.7 Cancelled (8.4-10.2) mg/dl
Iron Cancelled
TIBC 274 (261-462) ug/dl
Ferritin 269.0 (17.9-464.0) ng/ml
Total Bilirubin Cancelled 0.4 Cancelled
Direct Bilirubin 0.3 (0.0-0.4) mg/dl
AST Cancelled Cancelled
ALT Cancelled Cancelled
Alkaline Phosphatase Cancelled Cancelled
Lactate Dehydrogenase 174 (120-246) U/L
Troponin I 0.020 ng/ml
Total Protein Cancelled Cancelled
Albumin Cancelled Cancelled
Vitamin B12 503 (239-931) pg/ml
Folate 4.6 (2.76-20) ng/ml
TSH 0.79 (0.47-4.68) uIU/ml
07/15/25 Range/Units
06:05
Sodium 134 L (135-145) mmol/L
Potassium 4.2 (3.5-5.1) mmol/L
Chloride 110 H (98-107) mmol/L
Carbon Dioxide 19 L (22-30) mmol/L
BUN 104 H* (9-20) mg/dl
Creatinine 1.0 (0.7-1.3) mg/dL
Estimated Creat Clear 68 ml/min
eGFR > 60.00
Glucose 150 H (70-99) mg/dl
Lactic Acid 1.7 (0.7-2.0) mmol/L
Calcium 8.7 (8.4-10.2) mg/dl
Iron 224 H
TIBC (261-462) ug/dl
Ferritin (17.9-464.0) ng/ml
Total Bilirubin 0.5
Direct Bilirubin (0.0-0.4) mg/dl
AST 15 L
ALT 12
Alkaline Phosphatase 33 L
Lactate Dehydrogenase (120-246) U/L
Troponin I ng/ml
Total Protein 5.1 L
Albumin 2.9 L
Vitamin B12 (239-931) pg/ml
Folate (2.76-20) ng/ml
TSH (0.47-4.68) uIU/ml
Blood Bank Tests - Last 24 hours
07/14/25 07/14/25 Range/Units
20:42 21:16
Blood Type Cancelled A POS
Antibody Screen Cancelled Negative
Crossmatch IS Only See Detail
Vital Signs:
Vital Signs
Temp Pulse Resp BP Pulse Ox
98.1 F 97 15 155/49 100
07/15/25 07:26 07/15/25 07:26 07/15/25 07:26 07/15/25 07:26 07/15/25 07:26
I&O
07/14/25 07/15/25 07/16/25
06:59 05:59 06:59
Intake Total 350 / 350 250 / 250
Output Total 450 / 450
Balance -100 / -100 250 / 250
Review of Systems
-
History Source: Patient
All other systems: Reviewed and negative
Physical Exam
-
General: Well Developed, Well Nourished, No Apparent Distress, Comfortable and Conversant
HEENT: Normocephalic and Atraumatic
[2025-07-15] MEDS: PROTONIX IV 40 MG IV ×2 (08:54→12:48)
[2025-07-15] MEDS: NSS (PRESERVATIVE FREE) 10 ML IV ×2 (08:54→12:48)
[2025-07-15] MEDS: LR 1000 IV ×2 (08:55→18:17)
--- NOTE | 2025-07-15 10:13 | PTCARENOTE ---
Assumed care of pt and he was vomiting coffee ground emesisi with large blood clots upon morning rounds. Pt alert, vomiting in basin Nursing staff at bedside with support and pt vomited in basin and oral suction provided, GI dr rounding at this
time and repors Patient will go to GI lab for endoscopy today. Pt's second unit of PRBCs infusing
[2025-07-15 11:28] LABS: Hematocrit 19.3 % (39.0-52.0); Hemoglobin 6.7 g/dL (13.0-18.0)
[2025-07-15] MEDS: PROTONIX 100 IV ×2 (12:57→20:05)
[2025-07-15] MEDS: DILAUDID 0.25 MG IV (12:58)
[2025-07-15] MEDS: TRANDATE 5 MG IV (13:02)
[2025-07-15 13:40] LABS: Troponin I 0.052 ng/ml
--- NOTE | 2025-07-15 14:09 | PTCARENOTE ---
Patient completed unit #2 of PRBCs this am without event and received a unit of FFP prior to GI lab for endoscopy. Repeat HGB remained low and after GI procedure pt returned to IMU and 3rd unit PRBCs begun. Pt is drowsy but alert to verbal stimuli
and ansswering all questions appropriately. He denies pain or chest heavness upon return to IMU. Patient had reported Chest heaviness in GI lab and troponin resulted 0.052. Results called to Dr. Fransisco Cerrato, will trend. Pt resting quietly and HR NSR at
80bpm, resp rate relaxed at 16, pulse ox 100% on 2L NC. bedside Monitoring of pt during 1st 15 mins of blood infusion
--- NOTE | 2025-07-15 14:23 | PHANOTE ---
med rec tech: called [facility] today, 07/15/25, and they said they would fax over med list
--- NOTE | 2025-07-15 15:35 | CM ---
Addendum entered by Sandy Jamil 07/15/25 15:46:
Of note, patient has an extensive psychiatric history, there was a 303 hearing the in the past, there was mention of 302, patient was sent to inpatient psych unit on an admission from [place], and also patient left AMA from an admission.
Original Note:
I.A: Completed By SUSHANT Delgado. Patient lives in a 1 level house with basement, 2 steps to enter, has a rolling walker, cane, No VN/PT, and No Inpatient Rehab.
PCP: Patient can't remember at the moment, will ask again.
Pharmacy: [facility] on [address]
Patient says that he will Uber home. PLAN: Anticipate Home No Needs.
[2025-07-15 18:30] LABS: Hematocrit 20.5 % (39.0-52.0); Hemoglobin 7.0 g/dL (13.0-18.0); Mean Corp Hgb Conc. 34.1 g/dL (33.0-37.0); Mean Corpuscular Volume 94.0 fL (80.0-94.0); Platelet Count 125 10^3/uL (130-400); Red Cell Dist. Width 16.1 % (11.5-14.5)
[2025-07-15 18:49] LABS: Troponin I 0.338 ng/ml
[2025-07-15] MEDS: BENADRYL 25 MG IV (19:59)
[2025-07-15] MEDS: VALIUM INJECTION 2 MG IV (21:43)
[2025-07-16] VITALS: BP 100/55
[2025-07-16 02:00] VITALS: BP 98/53
--- NOTE | 2025-07-16 03:43 | PTCARENOTE ---
Caring for pt overnight. aaox3. C/o slight pain in lower abdomen. BP's starting to run soft. IVF. IV protonix. Strict NPO. Pt requested medication for sleep, LICENSED MIDWIFE aware, benadryl ordered then iv valium. No bleeding or bms so far. Will continue to
monitor.
[2025-07-16 04:00] VITALS: BP 122/53
[2025-07-16] MEDS: LR 1000 IV (04:28)
[2025-07-16] MEDS: PROTONIX 100 IV (04:28)
--- NOTE | 2025-07-16 05:19 | W.PN.GI.CBS2 ---
Today's Communication / Plan
-
Please see assessment and plan for details.
Assessment / Plan
-
1. Hematemesis: Secondary to large cavitating distal esophageal ulcer with active oozing, though no discrete visible vessel, status post epinephrine and Hemospray. No signs of bleeding overnight. He did have some transient chest pressure after,
likely from epinephrine injection, now resolved, though did have slight troponin bump. At this point would continue Protonix drip, will start clear liquids. He is still at high risk of rebleeding and discussed with him would recommend to very
slowly advance diet with continued careful observation. He is pretty adamant that he needs to go home today to take care of his dog which is understandable, though again my advice would be to stay and he understands that. We discussed if he were
to leave withstand a liquid diet for at least a few days, then very soft diet, with PPI twice daily.
Subjective
Subjective
Date of Service: July 16, 2025
Patient feeling okay overnight, no bowel movements, no vomiting, has been hemodynamically stable. No further chest pressure.
Objective
Data Reviewed
Laboratory Data:
Laboratory Results
PT 16.2 Sec (11.4-14.6) H 07/15/25 00:28
INR 1.27 07/15/25 00:28
APTT 25.2 Sec (23.4-35.0) 07/15/25 00:28
Total Bilirubin 0.5 mg/dl (0.2-1.3) 07/15/25 06:05
AST 15 U/L (17-59) L 07/15/25 06:05
ALT 12 U/L (0-50) 07/15/25 06:05
Alkaline Phosphatase 33 U/L (38-126) L 07/15/25 06:05
Vital Signs and I&O:
Vital Signs
Temp Pulse Resp BP Pulse Ox
98.0 F 73 10 122/53 97
07/15/25 21:47 07/16/25 04:00 07/16/25 04:00 07/16/25 04:00 07/16/25 04:00
I&O
07/14/25 07/15/25 07/16/25
06:59 05:59 06:59
Intake Total 350 / 350 1185.5 / 1185.5
Output Total 450 / 450 500 / 500
Balance -100 / -100 685.5 / 685.5
Physical Exam
Physical Exam
General: NAD
Abdomen: normal bowel sounds, soft, no tenderness, no masses or bruits, no ascites
[2025-07-16 06:00] VITALS: BP 129/104
[2025-07-16 06:21] LABS: Hematocrit 23.4 % (39.0-52.0); Hemoglobin 7.7 g/dL (13.0-18.0); Mean Corp Hgb Conc. 32.9 g/dL (33.0-37.0); Mean Corpuscular Volume 94.7 fL (80.0-94.0); Platelet Count 118 10^3/uL (130-400); Red Cell Dist. Width 19.0 % (11.5-14.5)
[2025-07-16 06:38] LABS: Blood Urea Nitrogen 64 mg/dl (9-20); Calcium 8.1 mg/dl (8.4-10.2); Carbon Dioxide 23 mmol/L (22-30); Chloride 116 mmol/L (98-107); Estimated Creatinine Clearance 76 ml/min; Glucose 99 mg/dl (70-99); Potassium 3.8 mmol/L (3.5-5.1); Sodium 139 mmol/L (135-145); eGFR > 60.00
[2025-07-16 06:52] LABS: Troponin I 0.594 ng/ml
--- NOTE | 2025-07-16 07:56 | W.PN.HOSP.TC ---
Addendum entered and electronically signed by Colleen Corbin MD 07/16/25 13:52:
Did not examine patient as he insisted leaving. Explained that it would be AMA. (See my separate update note.) He signed the paperwork and understood that he could if his symptoms recurred.
Original Note:
Today's Communication/Plan
-
Patient adamant about leaving today to take care of dog and receive his Meals on Wheels. Informed him that he is pretty anemic and had a heart injury, both of which she should stay for management. He maintained he want to leave today and left AMA.
Prescribed pantoprazole 40 mg BID. Instructed him to follow up with GI in 1 month. Counseled him to monitor for lightheadedness, SOB, chest pain, hematemesis, melena and return to ED if he feels those.
Assessment / Plan
Assessment / Plan
IMPRESSION:
Mr. Anselmo Flanagan is a 70-year-old male with patient notable for anxiety/depression/panic attacks, prior alcohol use disorder, GERD, COPD, hypertension, hyperlipidemia, CAD s/p stents, spine stimulator, who presented due to a panic attack and
developed hematemesis with acute anemia in the ED. Hemoglobin dropped down from 10-7.5. Patient had 2 episodes of hematemesis in ED, right red blood on rectal exam, and Hemoccult positive stool.
He presented to the ED for panic attack (shortness of breath) and developed hematemesis with acute anemia (Hb dropping from 10-7.5). He was advised to be admitted for acute anemia. Patient declined, he was advised to follow-up with GI (make an
appointment on Wednesday/[facility] [place]). He was discharge 07/2025 early a.m. from the ED, and he returned that evening and was admitted.
PLAN:
#Acute GI bleed
#Hematemesis
#Acute on chronic anemia
Macrocytic anemia
Patient not on chronic NSAIDs, DOACs.
Patient has been [employer] homemade colloidal silver from the past 17 years (states it cleanses him)
Etiology likely from Bekah-Nieto from vomiting, anemia of chronic disease, silver toxicity, upper and/or lower GI bleed
baseline hemoglobin 8.5�9
Patient had 2 episodes of hematemesis, and hemoglobin dropped down from 10-7.5 overnight.
�Bright red blood on rectal exam. Hemoccult positive stool
�IV fluids
�IV Protonix
�2 units PRBC
�Aspirin held
workup for anemia�iron studies, B12, folate, LDH, haptoglobin
� Iron 224 (on ferrous sulfate supplement). TIBC 274 normal. Ferritin 269 normal.
� Vitamin B12 503 low�normal. Folate 4.6 normal. TSH 0.79 low�normal
� LDH 174 normal. Haptoglobin pending
GI consult
� Started with clear liquid diet, n.p.o. from midnight for EGD 07/15/2025 AM
#Chest pain after EGD
Troponin trending up from 0.052-0.594
Likely had demand ischemia after endoscopic epinephrine injection
Advised patient that he had heart injury and should stay for management, but he declined
� Cardiology also tried to convince him to stay for ACS workup (echo)
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
BUN 75 to 104. Silver can damage glomeruli
Macrocytic anemia. Silver suppresses bone marrow/myelopoiesis
� Continuing to advise patient to discontinue colloidal silver ingestion in the setting of acute health problems
#Anxiety/depression/panic attack
Grieving 's a few months ago
�Continue home sertraline 100 mg at bedtime
� Resumed Seroquel at 12.5 mg at bedtime
#Non-anion gap metabolic acidosis
Might be related to his chronic colloidal silver ingestion
Lactate 2.1, downtrending to 1.7
#Concern for protein calorie malnutrition
Weight 71 to 76 kg this admission. BMI 21. 77 kg in 02/2025. 93 kg in 05/2020
Total protein 5.1. Albumin 2.9 low
� Planned nutrition consult but patient left AMA
#Left heel pressure ulcer
Yellow skin discoloration around the ulcer. It does not appear infected
Wound culture 04/2025 grew MSSA and Streptococcus agalactiae (resistant to ampicillin and erythromycin, but sensitive to Augmentin and others)
� Wound care consult
#CAD s/p stents
�Hold aspirin due to symptomatic anemia with GI bleed
�Continue atorvastatin
#Hyperlipidemia
�Continue atorvastatin
#Hypertension
�Continue amlodipine 2.5
#Chronic smoker
�Start nicotine patch
DVT prophylaxis�SCDs
Diet�n.p.o. from midnight for EGD
Full code
Anticipated Discharge: Today
Subjective/Interval History
-
Date of Service: July 16, 2025
No acute events overnight. No further bleeding since EGD and endoscopic interventions. Patient is adamant about leaving today by 9:30 AM.
Objective Data
-
Labs:
Laboratory Results
07/16/25
05:49
WBC 8.0
Hgb 7.7 L
Hct 23.4 L
Plt Count 118 L
Sodium 139
Potassium 3.8
Chloride 116 H
Carbon Dioxide 23
BUN 64 H
Creatinine 0.9
Glucose 99
Calcium 8.1 L
Vital Signs:
Vital Signs
Temp Pulse Resp BP Pulse Ox
98.0 F 72 11 129/104 100
07/15/25 21:47 07/16/25 05:00 07/16/25 05:00 07/16/25 06:00 07/16/25 05:00
I&O
07/15/25 07/16/25 07/17/25
05:59 06:59 06:59
Intake Total 350 / 350 1185.5 / 1185.5
Output Total 450 / 450 500 / 500
Balance -100 / -100 685.5 / 685.5
Review of Systems
-
History Source: Patient
All other systems: Reviewed and negative
Physical Exam
-
General: Well Developed, Well Nourished, No Apparent Distress, Comfortable and Conversant
HEENT: Normocephalic, Atraumatic, Anicteric, Nose Appears Normal and Ears Appear Normal
Respiratory: Clear to Auscultation
Cardiac: Regular Rhythm and S1/S2
GI: Soft, Nontender, Nondistended and Normal Bowel Sounds
Musculoskeletal: No Clubbing, No Cyanosis and No Edema
Skin: Warm and Dry
Neuro: Awake and Alert
Psych: Calm
--- NOTE | 2025-07-16 08:15 | W.PN.UPDATE ---
Update Note
Progress Note Update
Called by RN, because patient wants to sign out and go home. He states that he has a dog which needs to be taken care of. He gets Meals on Wheels and they will be delivering his food for the week between 10 and 10:30. I told him that he is not
stable for discharge, and hat he could bleed again and . I told him that he also had an insult to his heart and it looks like he may have had a heart attack as his troponins are rising (most recent one is 0.5). I told him that he could have a
heart attack and .
I also told him that according to the last GI note, he should be having clear liquids and that it does not matter if Meals on Wheels are coming because he is not allowed to eat those.
I do not believe that he will follow any of these instructions. He understands and has signed the AGAINST MEDICAL ADVICE form.
He will be discharged AGAINST MEDICAL ADVICE.
--- NOTE | 2025-07-16 08:36 | VNURNOTE ---
Chart reviewed. Per most recent note, pt plans on leaving AMA. Patient is current with [facility]. Resumption referral placed in [facility].
--- NOTE | 2025-07-16 08:44 | PTCARENOTE ---
pt has signed out ama. dr stark up to see pt. gerardo LAWN SERVICE MANAGER spoke to pt. nurse reviewed pt condition and expressed gi dr instructions to only have liquid diet for next days. reinforced need to not drink alcohol. told him if he starts to have
bloody stool or vomiting blood to come back to the hospital and suggested to befriend a neighbor to help with dog care if this were to happen again. pt states he understood
--- NOTE | 2025-07-16 08:53 | W.PN.UPDATE ---
Update Note
Progress Note Update
Attempted to see patient as a cardiology consultation for symptoms of chest pain and elevated troponin. Patient tells me he is leaving AMA and has already signed paperwork and is waiting for his ride home. Patient denies any chest pain currently.
I asked the patient if there was anything I could do to convince him to stay including I could have his echo done right away to expedite his workup and he is not interested. He says he needs to get home to meet the regional flatbed truck driver to have
food for the week and to take care of his dog. I asked the patient if his [id number] was still helpful as he had been over the summer and he says he now no longer talks to his [id number] and that he would not want his help. I talked with
nursing as well and they report that the patient has in fact signed the AMA paperwork and they are in the process of calling him a ride to get home. Patient was seen in the ER administrative services manager on 07/14/2025 for anxiety and was recommended admission and
he declined and then returned 11 hours later with recurrent symptoms and was admitted with anemia. He had upper endoscopy yesterday that showed ulcer and Bekah-Nieto tear and he is recommended ongoing admission for treatment, but he is signing
out AMA.
--- NOTE | 2025-07-16 09:28 | CM ---
Patient signed ama this morning. Patient has left this am. CM will continue to follow for discharge planning needs.
Plan; ama
--- NOTE | 2025-07-16 14:34 | W.DCSUMMARY ---
Addendum entered and electronically signed by Colleen Corbin MD 07/16/25 19:26:
Read, reviewed, and agree. See same day progress note for additional details. Time spent coordinating care, DC planning, review of DC plan of care with resident, transition of care, review of records in EMR, med rec, consults, notes, d/w
consultants, nursing, family, and CM = 40 minutes
Called by RN, because patient wanted to sign out and go home. He stated that he has a dog which needs to be taken care of. He gets Meals on Wheels and they will be delivering his food for the week between 10 and 10:30. I told him that he is not
stable for discharge, and hat he could bleed again and . I told him that he also had an insult to his heart and it looks like he may have had a heart attack as his troponins are rising (most recent one is 0.5). I told him that he could have a
heart attack and . I also told him that according to the last GI note, he should be having clear liquids and that it does not matter if Meals on Wheels are coming because he is not allowed to eat those.
I do not believe that he will follow any of these instructions. He understands and has signed the AGAINST MEDICAL ADVICE form.
He was discharged AGAINST MEDICAL ADVICE.
Original Note:
Discharge Summary
Discharge Data
Date of Admission: 07/14/25
Date of Discharge: 07/16/25
-
Pending Results: Yes
Additional Pending Results:
Haptoglobin
Hospital Course
Discharging Physician : Dr. Corbin and Dr. Mcgraw
Disposition : Home
Primary care physician : Patient does not know
Principal Discharge diagnosis : Distal esophageal ulcer
Chronic Discharge diagnosis : Chest pain after EGD involving epinephrine injection at ulcer, argyria, anxiety/depression/panic attack, concern for protein calorie nutrition, left heel pressure ulcer, CAD, per lipidemia, hypertension, nicotine use
Hospital Course :
Mr. Anselmo Flanagan is a 70-year-old male with patient notable for anxiety/depression/panic attacks, prior alcohol use disorder, GERD, COPD, hypertension, hyperlipidemia, CAD s/p stents, spine stimulator, who presented due to a panic attack and
developed hematemesis with acute anemia in the ED. Hemoglobin dropped down from 10-7.5. Patient had 2 episodes of hematemesis in ED, right red blood on rectal exam, and Hemoccult positive stool.
He presented to the ED for panic attack (shortness of breath) and developed hematemesis with acute anemia (Hb dropping from 10-7.5). He was advised to be admitted for acute anemia. Patient declined, he was advised to follow-up with GI (make an
appointment on Wednesday/[facility]). He was discharge 07/14/2025 early a.m. from the ED, and he returned that evening for shortness of breath with minimal exertion (walking a few feet) and was admitted. The exertional dyspnea may have been due to anemia.
EGD 07/15/2025 demonstrated oozing distal esophageal ulcer, likely from Bekah-Nieto tear, controlled with epinephrine and Hemospray. After the EGD, the patient stated chest heaviness. Troponin was elevated at 0.052 and repeats increased to 0.594.
Cardiology was consulted. The next day, the patient was adamant about leaving. He was implored to stay for his acute coronary syndrome and anemia (hemoglobin 7.7), but he maintained leaving to receive his week supply of Meals on Wheels and take
care of his dog. He was advised to monitor for chest pain, lightheadedness, dizziness, generalized weakness, shortness of breath, and return if he felt those. He was discharged on pantoprazole 40 mg p.o. twice daily. He was advised to advance his
diet carefully to not disrupt his ulcer's hemostasis and cause rebleeding. He was on a clear liquid diet, so he was advised to stick with a liquid diet for 3 to 4 days, and then start a very soft diet, and continue advancing his diet very slowly.
#Acute GI bleed
#Hematemesis
#Acute on chronic anemia
Macrocytic anemia
Patient not on chronic NSAIDs, DOACs.
baseline hemoglobin 8.5�9
Patient had 2 episodes of hematemesis, and hemoglobin dropped down from 10-7.5 overnight.
�Bright red blood on rectal exam. Hemoccult positive stool
�IV fluids
�IV Protonix
�2 units PRBC
�Aspirin held
workup for anemia�iron studies, B12, folate, LDH, haptoglobin
� Iron 224 (on ferrous sulfate supplement). TIBC 274 normal. Ferritin 269 normal.
� Vitamin B12 503 low�normal. Folate 4.6 normal. TSH 0.79 low�normal
� LDH 174 normal. Haptoglobin pending
GI consult
� EGD 07/15/2025: Oozing distal esophageal ulcer, likely from Bekah-Nieto tear. Controlled bleeding with epinephrine and Hemospray
#Chest pain after EGD
Troponin trending up from 0.052-0.594
Likely had demand ischemia after endoscopic epinephrine injection
Advised patient that he had heart injury and should stay for management, but he declined
� Cardiology also tried to convince him to stay for ACS workup (echo)
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
Patient has been drinking homemade colloidal silver from the past 17 years (states it cleanses him)
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
BUN 75 to 104. Silver can damage glomeruli
Macrocytic anemia. Silver suppresses bone marrow/myelopoiesis
� Continuing to advise patient to discontinue colloidal silver ingestion in the setting of acute health problems
#Anxiety/depression/panic attack
Grieving 's a few months ago
�Continue home sertraline 100 mg at bedtime
� Resumed Seroquel at 12.5 mg at bedtime
#Non-anion gap metabolic acidosis
Might be related to his chronic colloidal silver ingestion
Lactate 2.1, downtrended to 1.7
#Concern for protein calorie malnutrition
Weight 71 to 76 kg this admission. BMI 21. 77 kg in 02/2025. 93 kg in 05/2020
Total protein 5.1. Albumin 2.9 low
� Planned nutrition consult but patient left AMA
#Left heel pressure ulcer
Yellow skin discoloration around the ulcer. It does not appear infected
Wound culture 04/2025 grew MSSA and Streptococcus agalactiae (resistant to ampicillin and erythromycin, but sensitive to Augmentin and others)
� Wound care consult
Important imaging findings :
Chest x-ray 07/14/2025
1. Clear lungs.
2. No significant change compared to prior study.
Procedure findings :
EGD 07/15/2025:
- Large cratered distal esophageal ulcer oozing blood, without discreet visible vessel, likely from Bekah-Nieto tear. s/p epi and hemospray with no bleeding at end of the procedure.
- Normal stomach.
- Normal examined duodenum.
- No specimens collected.
Discharge Plan
-
Patient Disposition: Against Medical Advice
Discharge Diagnosis/Procedures: Distal esophageal ulcer contributing to acute anemia and hematemesis
Left heel pressure ulcer
Acute on chronic anemia
Anxiety/depression/panic attack
Concern for protein calorie malnutrition
Argyria
Coronary artery disease
Hyperlipidemia, hypertension
NAGMA
Condition: Fair
Diet: Other diet
Additional Diets: Clear liquid diet
Activity: As tolerated
Driving Restrictions: As prior to admission
Referrals:
Onel Sanchez MD [Active, Gastroenterology] - in one month
Referral Note: Esophageal ulcer
UNKNOWN - PT DOES,NOT KNOW [Family Provider]
Additional Discharge Medication Instructions: Since you had an esophageal ulcer and endoscopic interventions, please eat gentle foods to try to prevent rebleeding. Please have a clear liquid diet for 3 to 4 days. Then, you may advance to a very
soft diet and continue advancing slowly as you tolerate it.
Please take pantoprazole 40 mg twice daily. Please follow-up with your primary care provider within a week for this hospital stay, as well as for pantoprazole refills.
Please follow-up with gastroenterology in 1 month for the esophageal ulcer.
We wish you the best.
Prescriptions:
New
quetiapine 25 mg Tablet
12.5 mg PO HS Qty: 30 0RF
Continued
albuterol sulfate 1 PUFF HFA aerosol inhaler
1 puff inhalation R Q4HPRN PRN (Reason: sob or wheezing) Qty: 1 0RF
pantoprazole [Protonix] 40 mg Tablet,Delayed Release (Dr/Ec)
40 mg PO BID
cyclobenzaprine 10 mg Tablet
10 mg PO HSPRN PRN (Reason: spasms)
nicotine 21 mg/24 hr Patch 24 Hour
1 patch TRANSDERMAL DAILY
diclofenac sodium 1 % Gel
0 g TOPICAL DAILYPRN PRN (Reason: areas of pain)
famotidine 20 MG tablet
20 mg PO HS
atorvastatin 40 mg Tablet
40 mg PO QPM 30 Days Qty: 30 0RF
gabapentin 400 mg Capsule
1,200 mg PO HS 30 Days Qty: 90 0RF
amlodipine 2.5 mg Tablet
2.5 mg PO DAILY 30 Days Qty: 30 0RF
sertraline 100 mg Tablet
100 mg PO HS Qty: 30 0RF
aspirin 81 mg Tablet,Delayed Release (Dr/Ec)
81 mg PO DAILY 30 Days Qty: 30 0RF
ferrous sulfate 325 mg (65 mg iron) Tablet
325 mg PO Q48H 30 Days Qty: 30 0RF
cephalexin 500 mg capsule
500 mg PO QID 7 Days Qty: 28 0RF
Discontinued
quetiapine [Seroquel] 300 mg Tablet
300 mg PO HS 30 Days Qty: 30 0RF
cephalexin 500 mg tablet
500 mg PO TID 7 Days Qty: 21 0RF
pantoprazole 40 mg tablet,delayed release (DR/EC)
40 mg PO DAILY Qty: 30 0RF
Discharge Date and Time
Discharge Date/Time: 07/16/25 09:16
Print Language: AFGHAN
== END 2025-07-16 09:16 | disposition left against medical advice (07) | DRG 381 ==
LOC: IMU 18:36
PROVIDERS: Hospitalist; Nurse Practitioner Family; Student in an Organized Health Care Education/Training Program; ADMITTING PHYSICIAN Hospitalist; ATTENDING PHYSICIAN Internal Medicine; CONSULT PHYSICIAN Internal Medicine Gastroenterology; EMERGENCY PHYSICIAN Emergency Medicine
PROC: 30233N1 Transfusion of Nonautologous Red Blood Cells into Peripheral Vein, Percutaneous Approach (ICD-10-PCS; 2025-07-14)
PROC: 30233K1 Transfusion of Nonautologous Frozen Plasma into Peripheral Vein, Percutaneous Approach (ICD-10-PCS; 2025-07-15)
PROC: 3E0G8GC Introduction of Other Therapeutic Substance into Upper GI, Via Natural or Artificial Opening Endoscopic (ICD-10-PCS; 2025-07-15)
PROC: XW0G886 Introduction of Mineral-based Topical Hemostatic Agent into Upper GI, Via Natural or Artificial Opening Endoscopic, New Technology Group 6 (ICD-10-PCS; 2025-07-15)
DX: K22.11 Ulcer of esophagus with bleeding (principal); D62 Acute posthemorrhagic anemia; E87.20 Acidosis, unspecified; I24.89 Other forms of acute ischemic heart disease; L89.629 Pressure ulcer of left heel, unspecified stage; I25.10 Atherosclerotic heart disease of native coronary artery without angina pectoris; I10 Essential (primary) hypertension; F41.0 Panic disorder [episodic paroxysmal anxiety]; Z53.29 Procedure and treatment not carried out because of patient's decision for other reasons; J44.9 Chronic obstructive pulmonary disease, unspecified; F17.210 Nicotine dependence, cigarettes, uncomplicated; K21.9 Gastro-esophageal reflux disease without esophagitis; F10.90 Alcohol use, unspecified, uncomplicated; Z95.5 Presence of coronary angioplasty implant and graft; D47.2 Monoclonal gammopathy; E78.00 Pure hypercholesterolemia, unspecified; F31.9 Bipolar disorder, unspecified; N40.0 Benign prostatic hyperplasia without lower urinary tract symptoms; Z79.899 Other long term (current) drug therapy; Z87.442 Personal history of urinary calculi; Z88.5 Allergy status to narcotic agent; Z96.642 Presence of left artificial hip joint; Z96.659 Presence of unspecified artificial knee joint
CPT/HCPCS: 80048; 80053; 82247; 82248; 82607; 82728; 82746; 83010; 83540; 83550; 83605; 83615; 84443; 84484; 85014; 85018; 85025; 85027; 85045; 85610; 85730; 86850; 86900; 86901; 86920; 93005; 96374; 99284; 99406; P9016; P9059

== ENCOUNTER 2025-07-26 10:33 | Outpatient (REF) | payer MEDICARE, OTHER, SELFPAY | END 2025-07-26 23:59 | disposition home or self-care (01) | LOC: WOUND 10:33 | PROVIDERS: ATTENDING PHYSICIAN Surgery; FAMILY PHYSICIAN Internal Medicine | DX: L89.623 Pressure ulcer of left heel, stage 3 (principal); I73.9 Peripheral vascular disease, unspecified; Z72.0 Tobacco use; F10.10 Alcohol abuse, uncomplicated | CPT/HCPCS: 11042 ==

== ENCOUNTER 2025-08-20 13:13 | Outpatient (REF) | payer OTHER, SELFPAY | END 2025-08-20 23:59 | disposition home or self-care (01) | LOC: WOUND 13:13 | PROVIDERS: ATTENDING PHYSICIAN Registered Nurse; FAMILY PHYSICIAN Internal Medicine | DX: L89.623 Pressure ulcer of left heel, stage 3 (principal); I73.9 Peripheral vascular disease, unspecified; F10.10 Alcohol abuse, uncomplicated; Z72.0 Tobacco use | CPT/HCPCS: 97597 ==